=== PATIENT | female | born 1935 | race Caucasian/White ===

== ENCOUNTER 2017-06-22 22:52 | Emergency (ER) | payer MEDICARE, OTHER ==
[2017-06-22 23:18] VITALS: BP 109/61
--- NOTE | 2017-06-22 23:33 | EDM.PDOC ---
ED HPI GENERAL MEDICAL PROBLEM - General Chief Complaint: General Stated Complaint: nose bleed Time Seen by Provider: 06/22/17 23:26 Source of Information: Reports: Patient History Limitations: Reports: No Limitations - History of Present Illness INITIAL COMMENTS - FREE TEXT/NARRATIVE: Patient is an 82-year-old female who presents to the emergency Department this evening with her and son for complaint of nosebleed. Patient states that right nare started bleeding about 9 o'clock this evening and would not stop. Patient put pressure, however, she did lean head back and felt like she was swallowing blood. Advised that she should lean forward and pinch nose in the future. Patient wears O2 via nasal cannula at home on a continues basis. Does not have humidification attached. Patient admits to history of nosebleeds , but they spontaneously resolve. Patient denies any trauma to the face, chest pain, shortness of breath, nausea, vomiting, or fever. Onset: Today Onset Date: 06/22/17 Location: Reports: Face Severity: Mild Improves with: Reports: Other (pressure) Worsens with: Reports: None Context: Denies: Trauma Associated Symptoms: Reports: No Other Symptoms - Related Data Allergies Allergy/AdvReac Type Severity Reaction Status Date / Time Sulfa (Sulfonamide Allergy Nausea and Verified 06/22/17 23:13 Antibiotics) Vomiting Home Meds: Home Meds Aspirin [Adult Low Dose Aspirin EC] 81 mg PO BEDTIME 07/05/15 [History] fentaNYL [Fentanyl] 25 mcg TOP Q72H 07/05/15 [History] Citalopram [Celexa] 20 mg PO BEDTIME 07/09/15 [History] Gabapentin [Neurontin] 600 mg PO TID 03/23/16 [History] Multivits-Min/Iron/FA/Lutein [Centrum Silver Women Tablet] 1 each PO DAILY 03/23 [History] Simvastatin [Simvastatin] 20 mg PO BEDTIME 03/23/16 [History] amLODIPine [Norvasc] 5 mg PO BEDTIME 03/23/16 [History] Metoprolol Tartrate [Metoprolol Tartrate] 50 mg PO DAILY 06/22/17 [History] Mirtazapine [Mirtazapine] 15 mg PO BEDTIME 06/22/17 [History] Omeprazole [Omeprazole] 20 mg PO DAILY 06/22/17 [History] Past Medical History HEENT History: Reports: Impaired Vision Cardiovascular History: Reports: Hypertension Respiratory History: Reports: Other (See Below) Other Respiratory History: has had pneumonia once before. left lung partially collapsed Gastrointestinal History: Reports: Cholelithiasis, Chronic Constipation, Other ( See Below) Other Gastrointestinal History: "had holes in the intestine and had surgery to patch the hole back in the 1959's HOSPITAL ORDERLY History: Reports: Musculoskeletal History: Reports: Other (See Below) Other Musculoskeletal History: sciatica Psychiatric History: Reports: Depression Dermatologic History: Reports: Other (See Below) Other Dermatologic History: rocessa - Infectious Disease History Infectious Disease History: Reports: Chicken Pox, Measles, Mumps - Past Surgical History HEENT Surgical History: Reports: Cataract Surgery, Tonsillectomy Musculoskeletal Surgical History: Reports: Other (See Below) Social & Family History - Family History Family Medical History: Noncontributory Endocrine/Metabolic: Reports: Diabetes, type II Oncologic: Reports: Esophageal Other Oncologic Family History: father of cancer - Tobacco Use Smoking Status *Q: Former Smoker Years of Tobacco use: 10 Packs/Tins Daily: 0.2 Used Tobacco, but Quit: Yes Month Tobacco Last Used: march Second Hand Smoke Exposure: No - Alcohol Use Days Per Week of Alcohol Use: 1 Number of Drinks Per Day: 2 Total Drinks Per Week: 2 - Recreational Drug Use Recreational Drug Use: No Drug Use in Last 12 Months: No ED ROS GENERAL - Review of Systems Review Of Systems: ROS reveals no pertinent complaints other than HPI. Constitutional: Reports: No Symptoms HEENT: Reports: Nosebleed Respiratory: Reports: No Symptoms Cardiovascular: Reports: No Symptoms Endocrine: Reports: No Symptoms GI/Abdominal: Reports: No Symptoms : Reports: No Symptoms Musculoskeletal: Reports: No Symptoms Skin: Reports: No Symptoms Neurological: Reports: No Symptoms Psychiatric: Reports: No Symptoms Hematologic/Lymphatic: Reports: No Symptoms Immunologic: Reports: No Symptoms ED EXAM, GENERAL - Physical Exam Exam: See Below Exam Limited By: No Limitations General Appearance: Alert, WD/WN, No Apparent Distress Eye Exam: Bilateral Eye: Normal Inspection Nose: Other (Faint active bleed from right nare). No: Nasal Deformity, Nasal Swelling, Clear Rhinorrhea Throat/Mouth: Normal Inspection, Normal Lips, Normal Teeth, Normal Gums, Normal Oropharynx, Normal Voice, No Airway Compromise Head: Atraumatic, Normocephalic Neck: Normal Inspection, Supple, Non-Tender. No: Lymphadenopathy (L), Lymphadenopathy (R) Respiratory/Chest: No Respiratory Distress, Lungs Clear, Normal Breath Sounds Cardiovascular: Regular Rate, Rhythm, No Murmur Extremities: Normal Inspection, No Pedal Edema Neurological: Alert, Oriented, Normal Cognition Psychiatric: Normal Affect, Normal Mood Skin Exam: Warm, Dry, Intact, Normal Color, No Rash Lymphatic: No Adenopathy ED GENERAL MEDICAL PROCEDURES - Additional/Other Procedure(s) Other (Free Text) Procedure(s): Right nare cauterized using silver nitrate stick. None petroleum jelly applied. Good hemostasis. Patient tolerated procedure well Course - Vital Signs Last Recorded V/S: Last Vital Signs Temp 96.0 F 06/22/17 23:13 Pulse 66 06/22/17 23:13 Resp 20 06/22/17 23:13 BP 109/61 06/22/17 23:13 Pulse Ox 91 L 06/22/17 23:13 - Re-Assessments/Exams Free Text/Narrative Re-Assessment/Exam: 06/22/17 23:52 Patient afebrile, nontoxic appearing, vital signs stable. Right nare bleeding resolved. Advised patient to contact [facility] tomorrow for consideration of humidification in oxygen source Departure - Departure Time of Disposition: 23:53 Disposition: Home, Self-Care 01 Condition: Good Clinical Impression: Anterior epistaxis - Discharge Information Instructions: Nosebleed, Adult, [id number] Referrals: Ronan Cazares, [employer] [Nurse Practitioner] - Additional Instructions: Follow-up at [facility] tomorrow for recheck and consideration of humidification - Assessment/Plan Assessment:: Nosebleed Plan: Follow-up at [facility]
== END 2017-06-23 00:05 | disposition home or self-care (01) ==
LOC: KA.ED 22:52
DX: R04.0 Epistaxis (principal); I10 Essential (primary) hypertension; Z88.2 Allergy status to sulfonamides; Z79.899 Other long term (current) drug therapy; Z87.891 Personal history of nicotine dependence
CPT/HCPCS: 30901; 99282; 99283

== ENCOUNTER 2017-06-28 02:50 | Emergency (ER) | payer MEDICARE, OTHER ==
[2017-06-28] MEDS ORDERED: Sodium Chloride 0.9% 5 ML Syringe FLUSH PRN (03:17)
[2017-06-28] MEDS ORDERED: Acetaminophen 325 MG Tab PO ONE (03:30)
--- NOTE | 2017-06-28 03:46 | EDM.PDOC ---
ED HPI GENERAL MEDICAL PROBLEM - General Chief Complaint: General Stated Complaint: fall Time Seen by Provider: 06/28/17 03:10 Source of Information: Reports: Patient, Family () History Limitations: Reports: Altered Mental Status - History of Present Illness INITIAL COMMENTS - FREE TEXT/NARRATIVE: Patient is 82-year-old female who presents to the emergency department this morning via EMS for complaint of altered mental status and fall. Her states that at 10 p.m. last evening she had an unwitnessed fall in the bedroom. He did not initially realize that she had injured her left ankle. He states that over the last few days she has had more difficulty ambulating, and seems more confused. This morning he decided to contact EMS for transport. Patient was seen in this ER on 06/22/2017 with a complaint of epistaxis. Symptoms did resolve at that time and states that symptoms did not return. Patient was seen at [facility] by Ronan Cazares last week and blood pressure medicine was changed to include half dose at night. Patient had similar confusion status in July 2015, and work up at that time was negative. Patient denies chest pain, shortness of breath, headache, nausea, vomiting, or any pain other than left ankle. Onset: Sudden Onset Date: 06/27/17 Onset Time: 22:00 Duration: Hour(s): Location: Reports: Lower Extremity, Left Quality: Reports: Ache Severity: Mild Improves with: Reports: None Worsens with: Reports: None Context: Reports: Trauma Associated Symptoms: Reports: Confusion - Related Data Allergies Allergy/AdvReac Type Severity Reaction Status Date / Time Sulfa (Sulfonamide Allergy Nausea and Verified 06/28/17 03:01 Antibiotics) Vomiting Home Meds: Home Meds Aspirin [Adult Low Dose Aspirin EC] 81 mg PO BEDTIME 07/05/15 [History] fentaNYL [Fentanyl] 25 mcg TOP Q72H 07/05/15 [History] Citalopram [Celexa] 20 mg PO BEDTIME 07/09/15 [History] Gabapentin [Neurontin] 600 mg PO TID 03/23/16 [History] Multivits-Min/Iron/FA/Lutein [Centrum Silver Women Tablet] 1 each PO DAILY 03/23 [History] Simvastatin [Simvastatin] 20 mg PO BEDTIME 03/23/16 [History] amLODIPine [Norvasc] 5 mg PO BEDTIME 03/23/16 [History] Metoprolol Tartrate [Metoprolol Tartrate] 50 mg PO DAILY 06/22/17 [History] Mirtazapine [Mirtazapine] 15 mg PO BEDTIME 06/22/17 [History] Omeprazole [Omeprazole] 20 mg PO DAILY 06/22/17 [History] Past Medical History HEENT History: Reports: Impaired Vision Cardiovascular History: Reports: Hypertension Respiratory History: Reports: Other (See Below) Other Respiratory History: has had pneumonia once before. 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: Reports: Musculoskeletal History: Reports: Other (See Below) Other Musculoskeletal History: sciatica Psychiatric History: Reports: Depression Dermatologic History: Reports: Other (See Below) Other Dermatologic History: rocessa - Infectious Disease History Infectious Disease History: Reports: Chicken Pox, Measles, Mumps - Past Surgical History HEENT Surgical History: Reports: Cataract Surgery, Tonsillectomy Musculoskeletal Surgical History: Reports: Other (See Below) Social & Family History - Family History Family Medical History: Noncontributory Endocrine/Metabolic: Reports: Diabetes, type II Oncologic: Reports: Esophageal Other Oncologic Family History: father of cancer - Tobacco Use Smoking Status *Q: Former Smoker Years of Tobacco use: 10 Packs/Tins Daily: 0.2 Used Tobacco, but Quit: Yes Month Tobacco Last Used: march Second Hand Smoke Exposure: No - Caffeine Use Caffeine Use: Reports: Coffee - Alcohol Use Days Per Week of Alcohol Use: 1 Number of Drinks Per Day: 2 Total Drinks Per Week: 2 - Recreational Drug Use Recreational Drug Use: No Drug Use in Last 12 Months: No ED ROS GENERAL - Review of Systems Review Of Systems: ROS reveals no pertinent complaints other than HPI. Constitutional: Reports: No Symptoms HEENT: Reports: No Symptoms Respiratory: Reports: No Symptoms Cardiovascular: Reports: No Symptoms Endocrine: Reports: No Symptoms GI/Abdominal: Reports: No Symptoms : Reports: No Symptoms Musculoskeletal: Reports: Leg Pain Skin: Reports: No Symptoms Neurological: Reports: No Symptoms Psychiatric: Reports: No Symptoms Hematologic/Lymphatic: Reports: No Symptoms Immunologic: Reports: No Symptoms ED EXAM, GENERAL - Physical Exam Exam: See Below Exam Limited By: Altered Mental Status (Confused) General Appearance: Alert, WD/WN, No Apparent Distress Eye Exam: Bilateral Eye: Normal Inspection Nose: Normal Inspection, Normal Mucosa, No Blood Throat/Mouth: Normal Inspection, Normal Oropharynx, No Airway Compromise Head: Atraumatic, Normocephalic Neck: Normal Inspection, Supple, Non-Tender, Full Range of Motion Respiratory/Chest: No Respiratory Distress, No Accessory Muscle Use, Chest Non- Tender, Rales (Bibasilar) Cardiovascular: Regular Rate, Rhythm, No Murmur Peripheral Pulses: 2+: Posterior Tibial (L), Posterior Tibial (R), Dorsalis Pedis (L), Dorsalis Pedis (R) GI/Abdominal: Normal Bowel Sounds, Soft, Non-Tender Back Exam: Normal Inspection. No: CVA Tenderness (L), CVA Tenderness (R) Extremities: Other (Left ankle lateral malleolus edema and ecchymosis.) Neurological: Alert, Confused Psychiatric: Normal Affect, Normal Mood Skin Exam: Warm, Dry, Intact, Normal Color, No Rash ED GENERAL MEDICAL PROCEDURES - Splinting Left Lower Extremity Pre-procedure NV status: Normal Post-procedure NV status: Normal Splint Material: Fiberglass Splint Design: Sugar Tong, Stirrup Applied & Form Fitted By: Provider Provider Post-Splint Application NV Check: NV Status Normal, Good Position Complications: No EKG INTERPRETATION EKG Date: 06/28/17 Time: 04:15 Rhythm: NSR Rate (Beats/Min): 75 [place]: Normal P-Wave: Present QRS: Normal ST-T: Normal QT: Normal Comparison: NA - No Prior EKG Course - Orders/Labs/Meds Orders: Active Orders 24 hr Category Date Time Status EKG Documentation Completion [RC] ASDIRECTED Care 06/28/17 03:54 Ordered Peripheral IV Care [RC] . DIRECTED Care 06/28/17 03:18 Ordered Ankle 2V Lt [CR] Stat Exams 06/28/17 03:17 Ordered Chest 1V Frontal [CR] Stat Exams 06/28/17 03:53 Ordered Sodium Chloride 0.9% @ 999 MLS/HR (1000ml) Med 06/28/17 04:30 Ordered Sodium Chloride 0.9% [Normal Saline] 1,000 ml IV .BOLUS Sodium Chloride 0.9% [Syrex Flush] Med 06/28/17 03:17 Ordered 5 ml FLUSH Q8HR PRN Peripheral IV Insertion Adult [OM.PC] Routine Oth 06/28/17 03:17 Ordered EKG 12 Lead [EK] Routine Ther 06/28/17 03:53 Ordered Medication Orders Sodium Chloride (Normal Saline) 1,000 mls @ 999 mls/hr IV .BOLUS ONE Stop: 06/28/17 05:30 Sodium Chloride (Syrex Flush) 5 ml FLUSH Q8HR PRN PRN Reason: Keep Vein Open Labs: Laboratory Tests 06/28/17 06/28/17 06/28/17 Range/Units 03:20 03:20 03:55 WBC 7.2 (5.0-10.0) 10^3/uL RBC 3.51 L (3.80-5.50) 10^6/uL Hgb 10.5 L D (12.0-16.0) g/dL Hct 32.6 L (37.0-47.0) % MCV 92.9 H (82.0-92.0) fL MCH 30.0 (27.0-31.0) pg MCHC 32.3 (32.0-36.0) g/dL RDW 13.4 (11.5-14.5) % Plt Count 142 L (150-300) 10^3/uL MPV 7.4 (7.4-10.4) fL Neut % (Auto) 78.1 H (50.0-70.0) % Lymph % (Auto) 12.5 L (20.0-40.0) % [place] % (Auto) 8.7 H (2.0-8.0) % Eos % (Auto) 0.6 L (1.0-3.0) % Baso % (Auto) 0.1 (0.0-1.0) % Neut # (Auto) 5.7 (2.5-7.0) 10^3/uL Lymph # (Auto) 0.9 L (1.0-4.0) 10^3/uL [place] # (Auto) 0.6 (0.1-0.8) 10^3/uL Eos # (Auto) 0.0 L (0.1-0.3) 10^3/uL Baso # (Auto) 0.0 (0.0-0.1) 10^3/uL Sodium 145 (136-145) mmol/L Potassium 4.8 (3.3-5.3) mmol/L Chloride 102 (98-115) mmol/L Carbon Dioxide 45.0 H D (21.0-32.0) mmol/L BUN 14 (6-25) mg/dL Creatinine 0.73 (0.51-1.17) mg/dL Est Cr Clr Drug Dosing TNP Estimated GFR (MDRD) > 60 mL/min Glucose 140 H (70-110) mg/dL Calcium 8.5 L (8.7-10.3) mg/dL Total Bilirubin 0.3 (0.2-1.0) mg/dL AST 49 H (15-37) U/L ALT 40 (12-78) U/L Alkaline Phosphatase 73 (46-116) IU/L Total Protein 7.5 (6.4-8.2) g/dL Albumin 3.10 (3.00-4.80) g/dL Specimen Type [place] Urine Color Yellow (YELLOW) Urine Appearance Clear (CLEAR) Urine pH 7.0 (5.0-9.0) Ur Specific [place] 1.020 (1.005-1.030) Urine Protein 30 H (NEGATIVE) mg/dL Urine Glucose (UA) Negative (NEGATIVE) mg/dL Urine Ketones Negative (NEGATIVE) mg/dL Urine Occult Blood Trace-intact H (NEGATIVE) Urine Nitrite Negative (NEGATIVE) Urine Bilirubin Negative (NEGATIVE) Urine Urobilinogen 1.0 (0.2-1.0) E.U./dL Ur Leukocyte Esterase Negative (NEGATIVE) Urine RBC 0-5 /HPF Urine WBC 0-5 /HPF Ur Epithelial Cells Not seen /LPF Amorphous Sediment Many H (0/HPF) /HPF Urine Bacteria Not seen (NONE TO FEW) /HPF Urine Mucus Rare H (NEGATIVE) /LPF Meds: Medications Generic Name Dose Route Start Last Admin Trade Name Freq PRN Reason Stop Dose Admin Sodium Chloride 1,000 mls @ 999 mls/hr 06/28/17 04:30 Normal Saline IV 06/28/17 05:30 .BOLUS ONE Sodium Chloride 5 ml 06/28/17 03:17 Syrex Flush FLUSH Q8HR PRN Keep Vein Open Discontinued Medications Generic Name Dose Route Start Last Admin Trade Name Freq PRN Reason Stop Dose Admin Acetaminophen 650 mg 06/28/17 03:30 Tylenol PO 06/28/17 03:31 NOW ONE Sodium Chloride Confirm 06/28/17 04:31 Normal Saline Administered 06/28/17 04:32 Dose 1,000 mls @ as directed .ROUTE .STK-MED ONE Morphine Sulfate 2 mg 06/28/17 04:31 Morphine IVPUSH 06/28/17 04:32 ONETIME ONE Morphine Sulfate Confirm 06/28/17 04:32 Morphine Administered 06/28/17 04:33 Dose 2 mg .ROUTE .STK-MED ONE - Radiology Interpretation Free Text/Narrative:: Left ankle x-ray shows trimalleolar fracture, subluxation and distraction noted. Chest x-ray suspicious right lower lobe pneumonia - Re-Assessments/Exams Free Text/Narrative Re-Assessment/Exam: 06/28/17 05:19 Patient now afebrile, nontoxic appearing, vital signs stable, pain controlled. Posterior OCL and stirrup splint applied to left lower extremity. at bedside. Discussed case with Dr. Cordero, orthopedic surgeon from [facility]. Recommendation was for transfer via EMS to [place] for unstable fracture. Hospitalist there will address febrile concern that was initiated here. Departure - Departure Time of Disposition: 05:21 Disposition: DC/Tfer to Acute Hospital 02 Condition: Fair Clinical Impression: Confusion Trimalleolar fracture of left ankle Qualifiers: Encounter type: initial encounter Fracture type: closed Qualified Code(s): S82.852A - Displaced trimalleolar fracture of left lower leg, initial encounter for closed fracture Fever Qualifiers: Fever type: unspecified Qualified Code(s): R50.9 - Fever, unspecified Pneumonia Qualifiers: Pneumonia type: due to unspecified organism Laterality: right Lung location: upper lobe of lung Qualified Code(s): J18.9 - Pneumonia, unspecified organism - Discharge Information Forms: ED Department Discharge - My Orders Last 24 Hours: My Active Orders 06/28/17 03:17 Ankle 2V Lt [CR] Stat Sodium Chloride 0.9% [Syrex Flush] 5 ml FLUSH Q8HR PRN Peripheral IV Insertion Adult [OM.PC] Routine 06/28/17 03:18 Peripheral IV Care [RC] . DIRECTED 06/28/17 03:53 Chest 1V Frontal [CR] Stat EKG 12 Lead [EK] Routine 06/28/17 03:54 EKG Documentation Completion [RC] ASDIRECTED 06/28/17 04:30 Sodium Chloride 0.9% @ 999 MLS/HR (1000ml) Sodium Chloride 0.9% [Normal Saline] 1,000 ml IV .BOLUS - Assessment/Plan Last 24 Hours: My Active Orders 06/28/17 03:17 Ankle 2V Lt [CR] Stat Sodium Chloride 0.9% [Syrex Flush] 5 ml FLUSH Q8HR PRN Peripheral IV Insertion Adult [OM.PC] Routine 06/28/17 03:18 Peripheral IV Care [RC] . DIRECTED 06/28/17 03:53 Chest 1V Frontal [CR] Stat EKG 12 Lead [EK] Routine 06/28/17 03:54 EKG Documentation Completion [RC] ASDIRECTED 06/28/17 04:30 Sodium Chloride 0.9% @ 999 MLS/HR (1000ml) Sodium Chloride 0.9% [Normal Saline] 1,000 ml IV .BOLUS Assessment:: Left ankle, unstable fracture/pneumonia Plan: Transport to [facility]
[2017-06-28 04:15] LABS: CHLORIDE,CL 102 mmol/L (98-115); SODIUM,NA 145 mmol/L (136-145)
[2017-06-28] MEDS ORDERED: Morphine 2 MG/ML Syringe IVPUSH ONE (04:31)
[2017-06-28] MEDS ORDERED: Morphine 2 MG/ML Syringe ONE (04:32)
[2017-06-28] MEDS: Sodium Chloride 0.9% 1,000 ML IV ONE ×2 (04:40→05:45)
[2017-06-28] MEDS ORDERED: Azithromycin 500 MG in Sodium Chloride 0.9% 250 ML IV ONE (05:29)
[2017-06-28] MEDS ORDERED: cefTRIAXone 1 GM Vial IVPUSH ONE (05:29)
[2017-06-28] MEDS ORDERED: Azithromycin 250 MG Tab ONE (05:40)
[2017-06-28] MEDS: Sodium Chloride 0.9% 1,000 ML ONE ×2 (05:45→15:58)
[2017-06-28] MEDS ORDERED: Azithromycin 250 MG Tab PO SCH (06:00)
[2017-06-28 08:12] VITALS: BP 120/46
[2017-06-29] MEDS ORDERED: Azithromycin 250 MG Tab PO SCH (11:45)
== END 2017-06-28 06:35 ==
LOC: KA.ED 02:50
DX: S82.852A Displaced trimalleolar fracture of left lower leg, initial encounter for closed fracture (principal); J18.9 Pneumonia, unspecified organism; R41.82 Altered mental status, unspecified; I10 Essential (primary) hypertension; Z88.2 Allergy status to sulfonamides; Z79.899 Other long term (current) drug therapy; Z87.891 Personal history of nicotine dependence; W19.XXXA Unspecified fall, initial encounter; Y92.003 Bedroom of unspecified non-institutional (private) residence as the place of occurrence of the external cause
CPT/HCPCS: 29515; 71045; 73600-LT; 80053; 81001; 85025; 93005; 96361; 96374; 96375; 99284; 99285; A9270-GY; J0696; J2270; J7030

== ENCOUNTER 2017-09-10 14:48 | Inpatient (IN) | payer MEDICARE, OTHER ==
[2017-09-10 17:04] LABS: CHLORIDE,CL 103 mmol/L (98-115); SODIUM,NA 147 mmol/L (136-145)
[2017-09-10 17:27] LABS: O2 DELIVERY DEVICE NASAL CANNULA
[2017-09-10] MEDS ORDERED: Furosemide 40 MG/4 ML VIAL IVPUSH SCH ×2 (18:00→21:00)
[2017-09-10 18:38] LABS: BASE EXCESS ARTERIAL 18 mmol/L (-2-3); BICARBONATE,ARTERIAL 45.1 mmol/L (22-26); O2 FLOW RATE 2 L/min; O2 SATURATION ARTERIAL 85 % (95-98)
[2017-09-10 18:42] LABS: PCO2 ARTERIAL 100 mmHG (35-45); PO2 ARTERIAL 62 mmHG (80-105)
[2017-09-10 20:04] LABS: O2 DELIVERY DEVICE NASAL CANNULA; PCO2 ARTERIAL 94 mmHG (35-45)
[2017-09-10 20:05] LABS: BASE EXCESS ARTERIAL 23 mmol/L (-2-3); BICARBONATE,ARTERIAL 48.9 mmol/L (22-26); O2 FLOW RATE 2 L/min; O2 SATURATION ARTERIAL 88 % (95-98); PO2 ARTERIAL 64 mmHG (80-105)
[2017-09-10] MEDS: Pramipexole 0.5 MG Tab PO SCH (20:13)
[2017-09-10] MEDS: Gabapentin 300 MG Cap PO SCH (20:49)
[2017-09-10] MEDS: Mirtazapine 15 MG Tab PO SCH (20:50)
[2017-09-10] MEDS: amLODIPine 5 MG Tab PO SCH (20:51)
[2017-09-10] MEDS: Metoprolol Tartrate 50 MG Tab PO SCH (20:51)
[2017-09-10] MEDS: Citalopram 20 MG Tab PO SCH (20:52)
[2017-09-10] MEDS: Aspirin 81 MG Tab.EC PO SCH (20:52)
[2017-09-10] MEDS: Simvastatin 20 MG Tab PO SCH (20:52)
[2017-09-10] MEDS ORDERED: rOPINIRole 0.25 MG Tab PO SCH (21:00)
[2017-09-10] MEDS ORDERED: traMADol 50 MG Tab PO SCH (21:00)
[2017-09-11] MEDS: Omeprazole 20 MG Cap.CR PO SCH (07:55)
[2017-09-11] MEDS: Gabapentin 300 MG Cap PO SCH ×3 (08:22→20:42)
[2017-09-11] MEDS: Multivitamins with Minerals/Iron/Folic Acid/Lycopene Tab PO SCH (08:23)
[2017-09-11] MEDS: Metoprolol Tartrate 50 MG Tab PO SCH ×2 (08:23→20:41)
[2017-09-11] MEDS ORDERED: Furosemide 40 MG/4 ML VIAL IVPUSH SCH (09:00)
[2017-09-11] MEDS ORDERED: Furosemide 40 MG Tab PO ONE (10:28)
[2017-09-11] MEDS: Losartan 25 MG Tab PO SCH ×2 (11:34→20:40)
--- NOTE | 2017-09-11 13:32 | PN ---
09/11/2017 PATIENT NAME: CATRACHO GUZMAN SUBJECTIVE: This is an 82-year-old female patient who was admitted to the hospital yesterday by Ronan Cazares, nurse practitioner with concerns about respiratory failure and distress. The patient has a long history of respiratory distress due to the patient having lung trauma after she fell a few years ago. 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 The patient does have a CPAP mask that she needs to wear at home. She does not wear it at home. The last three days, she states that she has just been more short of breath, can not get her wind, so she came into the clinic. At that time, she was admitted to the [facility]. Upon arrival to the hospital, the patient had arterial blood gases drawn which showed a pH at 7.33, pCO2 at 94, PO2 of 64, oxygen saturation of 88. This was performed on 2 L nasal cannula. The patient does use oxygen at home. The patient had denied any cough while at home. She denied any fever or chills. Now today, the patient refused to wear her CPAP mask during the last night. She says she does not feel really that much better than she did yesterday. The patient's brain-natriuretic peptide was found to be elevated at 562. She was given one dose of Lasix 40 mg IV. The patient did pull her IV out last night. I discussed at length with the patient today on rounds of the need that she has to wear the BiPAP/CPAP mass to help with her breathing. Otherwise, there is not really anything else we could do. We are trying to diurese her and get some extra fluid off. The patient after long discussion was agreeable to start trying to wear her CPAP mask to help with her breathing. OBJECTIVE: VITAL SIGNS: Today, temperature is 98.3, pulse is 70, blood pressure 151/71, respiratory rate is 16, oxygen saturation on 2 L nasal cannula is 96%. GENERAL: This is an elderly white female in no acute distress. LUNGS: Sounds are extremely diminished throughout both lung [place]. She is pale in color. HEART: Tones are distant. NEURO: She is very orientated. You can keep a very good conversation with her. She does get up to walk to the bathroom with standby assist. ABDOMEN: Soft, nontender, nondistended. Bowel sounds present x4. EXTREMITIES: No pedal edema noted on exam. LABORATORY DATA: The patient's lab work that was obtained yesterday, CBC showed a white count within normal range at 5.7, hemoglobin slightly low at 10.7, platelet count of 146. ABGs, I already had discussed those, those are performed on 2 L nasal cannula. The patient's chemistry panel that was obtained yesterday after admission, sodium was just slightly high at 147. Her bicarb was elevated at 40.6. AST was slightly elevated at 42. Brain-natriuretic peptide was elevated at 562. Otherwise, all other lab work was unremarkable. No repeat lab work was obtained today. IMPRESSION AND PLAN: 1. Respiratory failure with hypercapnia. Plan: I did encourage patient she needs to wear her CPAP mask even as she to start wearing only 20 to 30 minutes at a time. ABG showed her pCO2 to be elevated at 94. We are going to hold the patient's tramadol at bedtime. Continue with oxygen per nasal cannula when she is not wearing the CPAP mask. Chest x-ray showed some impression per Radiology reads findings in the chest, most consistent with sequela of fluid retention, most likely congestive heart failure exacerbation. 2. Congestive heart failure. Plan: The patient's brain-natriuretic peptide was elevated at 562, IV was started per Anesthesia. She was given one dose of Lasix 40 mg IV yesterday. She did pull out her IV last night. We are going to continue with Lasix therapy, but orally she will get one dose of 40 mg Lasix now. We will continue at 40 mg twice daily of Lasix. I am going to start the patient on an ARB, losartan 25 mg twice daily. Also, we will continue to monitor patient's fluid status, I's and O's. 3. Hypertension. Plan: We will continue with amlodipine 5 mg daily along with metoprolol tartrate 50 mg b.i.d. I did start the patient on losartan 25 mg b.i.d. The patient's blood pressure is elevated today at 151/71. 4. History of depression. Plan: Continue with Celexa 20 mg daily. 5. History of peripheral neuropathy/restless legs syndrome. Plan: We will continue with gabapentin 600 mg three times a day. The patient's Requip was not really seeming to work. I discontinued patient's Requip, started her on Mirapex 0.125 at bedtime. 6. Sleep disorder. Plan: Continue with Remeron 30 mg at bedtime. 7. History of gastroesophageal reflux disease. Plan: Continue with omeprazole 20 mg daily in the morning. 8. History of hyperlipidemia. Plan: Continue with Zocor 20 mg daily. OVERALL PLAN: We will try to diurese the patient with oral Lasix. We will keep an accurate I's and O's. The patient's brain-natriuretic peptide was elevated at 562. We will also try to keep the patient to wear her BiPAP/CPAP mask for better ventilation. Also, I did start her on some losartan 25 mg b.i.d. for blood pressure control along with fluid status improvement. We will monitor the patient closely. /[id number]/MODL MTDD
[2017-09-11] MEDS: Pramipexole 0.5 MG Tab PO SCH (19:13)
[2017-09-11] MEDS: Citalopram 20 MG Tab PO SCH (20:39)
[2017-09-11] MEDS: Aspirin 81 MG Tab.EC PO SCH (20:40)
[2017-09-11] MEDS: Furosemide 40 MG Tab PO SCH (20:41)
[2017-09-11] MEDS: amLODIPine 5 MG Tab PO SCH (20:42)
[2017-09-11] MEDS: Simvastatin 20 MG Tab PO SCH (20:43)
[2017-09-11] MEDS: Mirtazapine 15 MG Tab PO SCH (20:43)
[2017-09-11] MEDS ORDERED: traMADol 50 MG Tab PO ONE (23:13)
[2017-09-12] MEDS: Omeprazole 20 MG Cap.CR PO SCH (07:32)
[2017-09-12] MEDS: Gabapentin 300 MG Cap PO SCH (09:12)
[2017-09-12] MEDS: Furosemide 40 MG Tab PO SCH (09:12)
[2017-09-12] MEDS: Metoprolol Tartrate 50 MG Tab PO SCH (09:12)
[2017-09-12] MEDS: Multivitamins with Minerals/Iron/Folic Acid/Lycopene Tab PO SCH (09:12)
[2017-09-12] MEDS: Losartan 25 MG Tab PO SCH (09:13)
[2017-09-12 09:14] VITALS: BP 110/56
--- NOTE | 2017-09-13 08:33 | DISCH ---
ADMITTING DIAGNOSIS: Acute respiratory failure. FINAL DIAGNOSIS: Severe hypercapnia with respiratory distress due to paralytic diaphragm with slight improvement. BRIEF HISTORY AND ESSENTIAL PHYSICAL FINDINGS: This is an 82-year-old female patient who has a long history of respiratory difficulties. 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 She has a CPAP mask that she wears at home, but she never wears it so she gets very hypercapnic. She came to the clinic on Wednesday, complaining of shortness of breath, difficulty breathing. She had not been wearing her CPAP mask. She was admitted to the hospital at that time. The patient was found to have a brain natriuretic peptide that was elevated at 562. She was given one dose of Lasix IV 40 mg. She did diurese well. Her breathing seems to be improved. She did wear her CPAP very sparingly while here in the hospital. ABGs on admission did reveal a pCO2 of 94. The patient states today she is feeling much better and would like to go home. SIGNIFICANT LABS XRAYS AND CONSULTATION FINDINGS: The patient's chest x-ray report that was obtained upon admission had stated that that the findings of the chest x-ray are most consistent with sequela of fluid retention, most likely congestive heart failure. The patient's lab work on admission; CBC showed a white count within normal range at 5.7 and hemoglobin slightly low at 10.7. ABG showed a pH of 7.33, pCO2 at 94, PO2 at 64, oxygen saturations at 88%, and her bicarb on ABG was 48.9. This was performed on 2 L nasal cannula. The patient's chemistry panel on admission showed a sodium slightly elevated at 147. Carbon dioxide on her chemistry panel was 40.6. AST was slightly elevated at 42. Brain natriuretic peptide was elevated at 562. Otherwise, all lab work was unremarkable. COURSE IN HOSPITAL WITH COMPLICATIONS IF ANY: The patient did get one dose of Lasix IV 40 mg. She had good urine output after having Lasix. She was put on oral Lasix 40 mg p.o. twice a day. We encouraged her very strongly to wear her CPAP mask. She wore it very sparingly while here in the hospital. She did feel better on day of discharge. She stated that her breathing was better. The patient is very alert, orientated, able to walk to the bathroom by herself. She did fine while in the hospital. CONDITION TREATMENT AND FINAL DISPOSITION ON DISCHARGE AND PROGNOSIS: Condition is stable. Final disposition will be home. IMPRESSION AND PLAN: 1. Respiratory failure with hypercapnia. Plan: I did encourage the patient to wear her CPAP/Bipap mask while she is at home. I do not care if she only wears for 20 to 30 minutes at a time. I instructed her she needs to start wearing it.. weaning on. On Wednesday, I will call [facility] to see if they can get a mask that is more suitable for her to wear. She does walk fine on her own. She is totally alert and orientated even though her she is very hypercapnic. We did diurese her here somewhat in the hospital. She had been seen by Pulmonology multiple times in the past. 2. Congestive heart failure. Plan: The patient's brain natriuretic was elevated on admission at 562. She did get one dose of Lasix IV 40 mg. We also did put her on 40 mg p.o. of Lasix. I am going to send her home on Lasix 20 mg daily. I also did start her on losartan. I am going to send her home on 25 mg of losartan daily also. She did diurese well here in the hospital. 3. Hypertension. Plan: We will continue with amlodipine 5 mg daily along with metoprolol tartrate 50 mg twice daily. I am going to send her home on losartan 25 mg once daily. 4. History of depression. Plan: Continue with Celexa 20 mg daily. 5. History of peripheral neuropathy/restless legs syndrome. Plan: We will continue the patient on gabapentin 600 mg three times a day. She was on Requip that was not really working. I have stopped that and started her on Mirapex 0.125 at bedtime. We will see how she does on this instead of the Requip. 6. Sleep disorder. Plan: Continue with Remeron 30 mg at bedtime. 7. History of gastroesophageal reflux disease. Plan: Continue with omeprazole 20 mg in the morning. 8. History of hyperlipidemia. Plan: Continue the patient on Zocor 20 mg daily. OVERALL PLAN: I am going to send the patient home on Lasix 20 mg daily along with losartan 25 mg daily. The rest of her medications she will keep the same. I did switch her from Requip to Mirapex for her restless legs syndrome to see if this also helps. I encouraged her very strongly to wear her CPAP/Bipap mask while at home. I am going to have the patient follow up in the clinic on Wednesday or with Ronan Cazares, nurse practitioner, in followup to see how she is doing. /[id number]/MODL MTDD
== END 2017-09-12 11:05 | disposition home or self-care (01) | DRG 189 ==
LOC: KA.MS 14:48
PROVIDERS: ADMIT Nurse Practitioner Family; ATTEND Family Medicine
DX: J96.92 Respiratory failure, unspecified with hypercapnia (principal); I50.9 Heart failure, unspecified; I10 Essential (primary) hypertension; F32.9 Major depressive disorder, single episode, unspecified; G62.9 Polyneuropathy, unspecified; G25.81 Restless legs syndrome; K21.9 Gastro-esophageal reflux disease without esophagitis; E78.5 Hyperlipidemia, unspecified; J44.9 Chronic obstructive pulmonary disease, unspecified; G47.30 Sleep apnea, unspecified; J98.6 Disorders of diaphragm; Z79.899 Other long term (current) drug therapy; Z88.2 Allergy status to sulfonamides
CPT/HCPCS: 36415; 36600; 71046; 80053; 82803; 83880; 85025; A9270-GY; J1940

== ENCOUNTER 2017-09-17 07:09 | Inpatient (IN) | payer MEDICARE, OTHER ==
[2017-09-17] MEDS ORDERED: Sodium Chloride 0.9% 5 ML Syringe FLUSH PRN (07:36)
--- NOTE | 2017-09-17 07:55 | EDM.PDOC ---
ED HPI GENERAL MEDICAL PROBLEM - General Chief Complaint: Respiratory Problem Stated Complaint: LOW O2 SATS Time Seen by Provider: 09/17/17 07:30 Source of Information: Reports: Family History Limitations: Reports: Altered Mental Status - History of Present Illness INITIAL COMMENTS - FREE TEXT/NARRATIVE: 82 YO WF presents to ER by EMS due to hypoxia and confusion at home. at bedside states she uses home O2 and CPAP at home. states she had a similar episode of hypoxia and confusion 1 week ago and he suspects it corresponds to use of her CPAP. Pt with history of hypercapnia per . Pt awake and alert and responds to commands but has incoherent speech at this time. No fever/chills, no nausea/vomiting. Pt able to move all extremities without any obvious focal deficits. Onset: Sudden Onset Date: 09/17/17 Location: Reports: Generalized Improves with: Reports: None Worsens with: Reports: None Associated Symptoms: Reports: Confusion, Shortness of Breath. Denies: Cough, cough w sputum, Fever/Chills, Nausea/Vomiting - Related Data Allergies Allergy/AdvReac Type Severity Reaction Status Date / Time Sulfa (Sulfonamide Allergy Nausea and Verified 09/17/17 08:05 Antibiotics) Vomiting Home Meds: Home Meds Aspirin [Adult Low Dose Aspirin EC] 81 mg PO BEDTIME 07/05/15 [History] Citalopram [Celexa] 20 mg PO BEDTIME 07/09/15 [History] Gabapentin [Neurontin] 600 mg PO TID 03/23/16 [History] Multivits-Min/Iron/FA/Lutein [Centrum Silver Women Tablet] 1 each PO DAILY 03/23 [History] Simvastatin 20 mg PO BEDTIME 03/23/16 [History] Mirtazapine 30 mg PO BEDTIME 06/22/17 [History] Omeprazole 20 mg PO ACBREAKFAST 06/22/17 [History] traMADol HCl [Ultram] 100 mg PO BEDTIME 09/10/17 [History] Past Medical History HEENT History: Reports: Impaired Vision Cardiovascular History: Reports: Hypertension Respiratory History: Reports: Other (See Below) Other Respiratory History: has had pneumonia once before. 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: Musculoskeletal History: Reports: Other (See Below) Other Musculoskeletal History: sciatica Neurological History: Reports: Neuropathy, Peripheral Psychiatric History: Reports: Depression Hematologic History: Reports: None Immunologic History: Reports: None Oncologic (Cancer) History: Reports: None Dermatologic History: Reports: Other (See Below) Other Dermatologic History: rocessa - Infectious Disease History Infectious Disease History: Reports: Chicken Pox, Measles - Past Surgical History Head Surgeries/Procedures: Reports: None HEENT Surgical History: Reports: Cataract Surgery, Tonsillectomy GI Surgical History: Reports: Appendectomy, Cholecystectomy, Colonoscopy Female Surgical History: Reports: Hysterectomy Musculoskeletal Surgical History: Reports: Other (See Below) Social & Family History - Family History Family Medical History: Noncontributory Endocrine/Metabolic: Reports: Diabetes, type II Oncologic: Reports: Esophageal Other Oncologic Family History: father of cancer - Caffeine Use Caffeine Use: Reports: Coffee, Soda ED ROS GENERAL - Review of Systems Review Of Systems: ROS reveals no pertinent complaints other than HPI. Constitutional: Reports: No Symptoms HEENT: Reports: No Symptoms Respiratory: Reports: Shortness of Breath Cardiovascular: Reports: No Symptoms Endocrine: Reports: No Symptoms GI/Abdominal: Reports: No Symptoms : Reports: No Symptoms Musculoskeletal: Reports: No Symptoms Skin: Reports: No Symptoms Neurological: Reports: Confusion Psychiatric: Reports: No Symptoms Hematologic/Lymphatic: Reports: No Symptoms ED EXAM, GENERAL - Physical Exam Exam: See Below Exam Limited By: Altered Mental Status General Appearance: Alert, WD/WN, Mild Distress Eye Exam: Bilateral Eye: EOMI, PERRL Throat/Mouth: Normal Inspection, Normal Lips, Normal Teeth, Normal Gums, Normal Oropharynx, Normal Voice, No Airway Compromise Head: Atraumatic, Normocephalic Neck: Normal Inspection, Supple, Non-Tender, Full Range of Motion Respiratory/Chest: No Accessory Muscle Use, Chest Non-Tender, Decreased Breath Sounds, Crackles Cardiovascular: Normal Peripheral Pulses, Regular Rate, Rhythm, No Edema, No Gallop, No JVD, No Murmur, No Rub GI/Abdominal: Normal Bowel Sounds, Soft, Non-Tender, No Organomegaly, No Distention, No Abnormal Bruit, No Mass Back Exam: Normal Inspection, Full Range of Motion, NT Extremities: Normal Inspection, Normal Range of Motion, Non-Tender, Normal Capillary Refill, No Pedal Edema Neurological: Alert, CN II-XII Intact, Normal Reflexes, No Motor/Sensory Deficits Psychiatric: Normal Mood, Flat Affect Skin Exam: Warm, Dry, Intact, Normal Color, No Rash Lymphatic: No Adenopathy EKG INTERPRETATION EKG Date: 09/17/17 Time: 07:34 Rhythm: NSR Rate (Beats/Min): 75 [place]: Normal P-Wave: Present QRS: Normal ST-T: Normal QT: Normal Course - Vital Signs Last Recorded V/S: Last Vital Signs Temp 37.1 C 09/17/17 07:42 Pulse 73 09/17/17 07:42 Resp 20 09/17/17 07:42 BP 126/44 L 09/17/17 07:42 Pulse Ox 92 L 09/17/17 07:42 - Orders/Labs/Meds Orders: Active Orders 24 hr Category Date Time Status BIPAP Adult [RT BiPAP/CPAP] [RC] ASDIRECTED Care 09/17/17 08:19 Ordered Cardiac Monitoring [RC] . DIRECTED Care 09/17/17 07:36 Active EKG Documentation Completion [RC] ASDIRECTED Care 09/17/17 07:30 Active Bernal Catheter Insertion [Insert Urinary Catheter] [OM. Care 09/17/17 08:30 Ordered PC] Q24H Oxygen Therapy, ED [RC] ASDIRECTED Care 09/17/17 07:36 Active Peripheral IV Care [RC] . DIRECTED Care 09/17/17 07:36 Active Urinary Catheter Assessment [RC] ASDIRECTED Care 09/17/17 08:20 Ordered CXR [Chest 1V Frontal] [CR] Stat Exams 09/17/17 07:31 Taken Head wo Cont [CT] Stat Exams 09/17/17 07:42 Ordered Sodium Chloride 0.9% [Syrex Flush] Med 09/17/17 07:36 Active 5 ml FLUSH Q8HR PRN Peripheral IV Insertion Adult [OM.PC] Routine Oth 09/17/17 07:36 Ordered EKG 12 Lead [EK] Routine Ther 09/17/17 07:15 Ordered Medication Orders Sodium Chloride (Syrex Flush) 5 ml FLUSH Q8HR PRN PRN Reason: Keep Vein Open Labs: Laboratory Tests 05/18/18 05/18/18 05/18/18 Range/Units 07:25 07:25 07:25 WBC 8.4 (5.0-10.0) 10^3/uL RBC 3.89 (3.80-5.50) 10^6/uL Hgb 10.9 L (12.0-16.0) g/dL Hct 34.1 L (37.0-47.0) % MCV 87.6 (82.0-92.0) fL MCH 28.1 (27.0-31.0) pg MCHC 32.1 (32.0-36.0) g/dL RDW 15.6 H (11.5-14.5) % Plt Count 173 (150-300) 10^3/uL MPV 7.3 L (7.4-10.4) fL Neut % (Auto) 82.2 H (50.0-70.0) % Lymph % (Auto) 7.0 L (20.0-40.0) % [place] % (Auto) 9.6 H (2.0-8.0) % Eos % (Auto) 0.9 L (1.0-3.0) % Baso % (Auto) 0.3 (0.0-1.0) % Neut # (Auto) 6.9 (2.5-7.0) 10^3/uL Lymph # (Auto) 0.6 L (1.0-4.0) 10^3/uL [place] # (Auto) 0.8 (0.1-0.8) 10^3/uL Eos # (Auto) 0.1 (0.1-0.3) 10^3/uL Baso # (Auto) 0.0 (0.0-0.1) 10^3/uL PT 10.6 (8.9-11.4) SEC INR 1.0 (0.9-1.1) APTT 23.4 (20.8-31.2) SEC ABG pH (7.35-7.45) ABG pCO2 (35-45) mmHG ABG pO2 (80-105) mmHG ABG HCO3 (22-26) mmol/L ABG Total CO2 (23-27) mmol/L ABG O2 Saturation (95-98) % ABG Base Excess (-2-3) mmol/L O2 Delivery Device Sodium 145 (136-145) mmol/L Potassium 5.4 H D (3.3-5.3) mmol/L Chloride 103 (98-115) mmol/L Carbon Dioxide 37.3 H (21.0-32.0) mmol/L BUN 14 (6-25) mg/dL Creatinine 0.67 D (0.51-1.17) mg/dL Est Cr Clr Drug Dosing 55.40 mL/min Estimated GFR (MDRD) > 60 mL/min Glucose 156 H (70-110) mg/dL Calcium 9.2 (8.7-10.3) mg/dL Total Bilirubin 0.3 (0.2-1.0) mg/dL AST 56 H (15-37) U/L ALT 35 (12-78) U/L Alkaline Phosphatase 119 H (46-116) IU/L Creatine Kinase 45 (26-276) U/L CK-MB (CK-2) 1.50 (0.00-4.30) ng/mL Troponin I < 0.04 (0.00-0.070) ng/mL B-Natriuretic Peptide 738 H (0-100) pg/mL Total Protein 8.0 (6.4-8.2) g/dL Albumin 3.15 (3.00-4.80) g/dL 09/17/17 Range/Units 07:55 WBC (5.0-10.0) 10^3/uL RBC (3.80-5.50) 10^6/uL Hgb (12.0-16.0) g/dL Hct (37.0-47.0) % MCV (82.0-92.0) fL MCH (27.0-31.0) pg MCHC (32.0-36.0) g/dL RDW (11.5-14.5) % Plt Count (150-300) 10^3/uL MPV (7.4-10.4) fL Neut % (Auto) (50.0-70.0) % Lymph % (Auto) (20.0-40.0) % [place] % (Auto) (2.0-8.0) % Eos % (Auto) (1.0-3.0) % Baso % (Auto) (0.0-1.0) % Neut # (Auto) (2.5-7.0) 10^3/uL Lymph # (Auto) (1.0-4.0) 10^3/uL [place] # (Auto) (0.1-0.8) 10^3/uL Eos # (Auto) (0.1-0.3) 10^3/uL Baso # (Auto) (0.0-0.1) 10^3/uL PT (8.9-11.4) SEC INR (0.9-1.1) APTT (20.8-31.2) SEC ABG pH 7.20 L* (7.35-7.45) ABG pCO2 108 H* (35-45) mmHG ABG pO2 125 H (80-105) mmHG ABG HCO3 44.1 H (22-26) mmol/L ABG Total CO2 47 H (23-27) mmol/L ABG O2 Saturation 98 (95-98) % ABG Base Excess 16 H (-2-3) mmol/L O2 Delivery Device Room air Sodium (136-145) mmol/L Potassium (3.3-5.3) mmol/L Chloride (98-115) mmol/L Carbon Dioxide (21.0-32.0) mmol/L BUN (6-25) mg/dL Creatinine (0.51-1.17) mg/dL Est Cr Clr Drug Dosing mL/min Estimated GFR (MDRD) mL/min Glucose (70-110) mg/dL Calcium (8.7-10.3) mg/dL Total Bilirubin (0.2-1.0) mg/dL AST (15-37) U/L ALT (12-78) U/L Alkaline Phosphatase (46-116) IU/L Creatine Kinase (26-276) U/L CK-MB (CK-2) (0.00-4.30) ng/mL Troponin I (0.00-0.070) ng/mL B-Natriuretic Peptide (0-100) pg/mL Total Protein (6.4-8.2) g/dL Albumin (3.00-4.80) g/dL Meds: Medications Generic Name Dose Route Start Last Admin Trade Name Freq PRN Reason Stop Dose Admin Sodium Chloride 5 ml 09/17/17 07:36 Syrex Flush FLUSH Q8HR PRN Keep Vein Open Discontinued Medications Generic Name Dose Route Start Last Admin Trade Name Nelli PRN Reason Stop Dose Admin Furosemide 40 mg 09/17/17 08:19 Lasix IVPUSH 09/17/17 08:20 NOW ONE - Radiology Interpretation Free Text/Narrative:: CXR- Pulmonary congestion Departure - Departure Time of Disposition: 08:46 Disposition: Admitted As Inpatient 68 Condition: Critical Clinical Impression: Hypercapnemia Congestive heart failure Qualifiers: Heart failure chronicity: acute on chronic - Discharge Information Referrals: Ronan Cazares NP [Primary Care Provider] - Forms: ED Department Discharge - My Orders Last 24 Hours: My Active Orders 09/17/17 07:15 EKG 12 Lead [EK] Routine 09/17/17 07:30 EKG Documentation Completion [RC] ASDIRECTED 09/17/17 07:31 CXR [Chest 1V Frontal] [CR] Stat 09/17/17 07:36 Cardiac Monitoring [RC] . DIRECTED Oxygen Therapy, ED [RC] ASDIRECTED Peripheral IV Care [RC] . DIRECTED Sodium Chloride 0.9% [Syrex Flush] 5 ml FLUSH Q8HR PRN Peripheral IV Insertion Adult [OM.PC] Routine 09/17/17 07:42 Head wo Cont [CT] Stat 09/17/17 08:19 BIPAP Adult [RT BiPAP/CPAP] [RC] ASDIRECTED 09/17/17 08:20 Urinary Catheter Assessment [RC] ASDIRECTED 09/17/17 08:30 Bernal Catheter Insertion [Insert Urinary Catheter] [OM.PC] Q24H - Assessment/Plan Last 24 Hours: My Active Orders 09/17/17 07:15 EKG 12 Lead [EK] Routine 09/17/17 07:30 EKG Documentation Completion [RC] ASDIRECTED 09/17/17 07:31 CXR [Chest 1V Frontal] [CR] Stat 09/17/17 07:36 Cardiac Monitoring [RC] . DIRECTED Oxygen Therapy, ED [RC] ASDIRECTED Peripheral IV Care [RC] . DIRECTED Sodium Chloride 0.9% [Syrex Flush] 5 ml FLUSH Q8HR PRN Peripheral IV Insertion Adult [OM.PC] Routine 09/17/17 07:42 Head wo Cont [CT] Stat 09/17/17 08:19 BIPAP Adult [RT BiPAP/CPAP] [RC] ASDIRECTED 09/17/17 08:20 Urinary Catheter Assessment [RC] ASDIRECTED 09/17/17 08:30 Bernal Catheter Insertion [Insert Urinary Catheter] [OM.PC] Q24H Assessment:: 1. Hypercapnia 2. Respiratory distress 3. CHF exacerbation Plan: 1. Admit to Ronan Cazares 2. Bipap 3. supportive care 4. lasix 40mg IV
[2017-09-17 08:16] LABS: CHLORIDE,CL 103 mmol/L (98-115); SODIUM,NA 145 mmol/L (136-145)
[2017-09-17] MEDS ORDERED: Furosemide 40 MG/4 ML VIAL IVPUSH ONE (08:19)
[2017-09-17 08:29] LABS: O2 DELIVERY DEVICE ROOM AIR
[2017-09-17 08:31] LABS: BASE EXCESS ARTERIAL 16 mmol/L (-2-3); BICARBONATE,ARTERIAL 44.1 mmol/L (22-26); O2 SATURATION ARTERIAL 98 % (95-98); PCO2 ARTERIAL 108 mmHG (35-45); PO2 ARTERIAL 125 mmHG (80-105)
[2017-09-17 10:45] LABS: O2 DELIVERY DEVICE BIPAP; O2 FLOW RATE 6 L/min
[2017-09-17 10:47] LABS: BASE EXCESS ARTERIAL 17 mmol/L (-2-3); BICARBONATE,ARTERIAL 44.6 mmol/L (22-26); O2 SATURATION ARTERIAL 89 % (95-98); PCO2 ARTERIAL 103 mmHG (35-45); PO2 ARTERIAL 72 mmHG (80-105)
--- NOTE | 2017-09-17 10:53 | PCM.HP ---
H&P History of Present Illness - General Date of Service: 09/17/17 Admit Problem/Dx: Admission Diagnosis/Problem Admission Diagnosis/Problem Hypercapnia Source of Information: Family, Old Records, Provider History Limitations: Reports: Altered Mental Status, Respiratory Distress - History of Present Illness Initial Comments - Free Text/Narative: This 82-year-old female was admitted through the ED due epoxy and altered mental status. She was recently discharged from [facility] on September 12 due to acute on chronic respiratory failure improved with BiPAP while in the hospital. She has a history of chronic hypercapnia related to respiratory failure due to multiple comorbidities involving obstructive sleep apnea, diaphragmatic dysfunction, chronic obstructive pulmonary disease. She is to be on BiPAP at home however not 100% compliant in this. She also was given hydrocodone last night by her spouse d/t chronic pain and restless legs. At one point she was completely off of narcotic fentanyl patches however was recently placed on tramadol. Patient now is DNR - Related Data Allergies/Adverse Reactions: Allergies Allergy/AdvReac Type Severity Reaction Status Date / Time Sulfa (Sulfonamide Allergy Nausea and Verified 09/17/17 08:05 Antibiotics) Vomiting Home Medications: Home Meds Aspirin [Adult Low Dose Aspirin EC] 81 mg PO BEDTIME 07/05/15 [History] Citalopram [Celexa] 20 mg PO BEDTIME 07/09/15 [History] Gabapentin [Neurontin] 600 mg PO TID 03/23/16 [History] Multivits-Min/Iron/FA/Lutein [Centrum Silver Women Tablet] 1 each PO DAILY 03/23 [History] Simvastatin 20 mg PO BEDTIME 03/23/16 [History] Omeprazole 20 mg PO ACBREAKFAST 06/22/17 [History] traMADol HCl [Ultram] 100 mg PO BEDTIME 09/10/17 [History] Acetaminophen [Tylenol Extra Strength] 1,000 mg PO TID PRN 09/17/17 [History] Diclofenac Sodium [Voltaren] 75 mg PO WITHBREAKFAST 09/17/17 [History] Ferrous Sulfate [Iron] 325 mg PO DAILY 09/17/17 [History] Metoprolol Tartrate 50 mg PO BID 09/17/17 [History] Sennosides/Docusate Sodium [Senna-Docusate Sodium Tablet] 2 tab PO DAILY [History] oxyCODONE 5 mg PO Q6H PRN 09/17/17 [History] Past Medical History HEENT History: Reports: Impaired Vision Cardiovascular History: Reports: Hypertension Respiratory History: Reports: Other (See Below) Other Respiratory History: has had pneumonia once before. left lung partially collapsed Gastrointestinal History: Reports: Cholelithiasis, Chronic Constipation, Other ( See Below) Other Gastrointestinal History: "had holes in the intestine and had surgery to patch the hole back in the s CONTENT DIRECTOR History: Reports: Musculoskeletal History: Reports: Other (See Below) Other Musculoskeletal History: sciatica Neurological History: Reports: Neuropathy, Peripheral Other Neuro History: restless legs Psychiatric History: Reports: Depression Hematologic History: Reports: None Immunologic History: Reports: None Oncologic (Cancer) History: Reports: None Dermatologic History: Reports: Other (See Below) Other Dermatologic History: rocessa - Infectious Disease History Infectious Disease History: Reports: Chicken Pox, Measles - Past Surgical History Head Surgeries/Procedures: Reports: None HEENT Surgical History: Reports: Cataract Surgery, Tonsillectomy GI Surgical History: Reports: Appendectomy, Cholecystectomy, Colonoscopy Female Surgical History: Reports: Hysterectomy Musculoskeletal Surgical History: Reports: Other (See Below) Social & Family History - Family History Family Medical History: Noncontributory Endocrine/Metabolic: Reports: Diabetes, type II Oncologic: Reports: Esophageal Other Oncologic Family History: father of cancer - Tobacco Use Smoking Status *Q: Former Smoker Years of Tobacco use: 32 Used Tobacco, but Quit: Yes Month/Year Tobacco Last Used: 2009 Second Hand Smoke Exposure: No - Caffeine Use Caffeine Use: Reports: Coffee, Soda - Recreational Drug Use Recreational Drug Use: No H&P Review of Systems - Review of Systems: Review Of Systems: Unable To Obtain Exam - Exam Exam: See Below - Vital Signs Vital Signs: Last Vital Signs Temp 98.7 F 09/17/17 07:42 Pulse 73 09/17/17 10:33 Resp 20 09/17/17 10:33 BP 120/54 L 09/17/17 10:33 Pulse Ox 92 L 09/17/17 10:33 Weight: 157 lb 8 oz - Exam Quality Assessment: Supplemental Oxygen (On BiPAP) General: Alert, Moderate Distress. No: Oriented Neck: Supple Lungs: Decreased Breath Sounds Cardiovascular: Regular Rate, Regular Rhythm GI/Abdominal Exam: Soft Back Exam: No: CVA Tenderness (L), CVA Tenderness (R) Extremities: No: Pedal Edema Neuro Extensive - Mental Status: Alert. No: Oriented x3 Neuro Extensive - Motor, Sensory, Reflexes: No: Facial palsy (L), Facial Palsy ( R) Psychiatric: Alert (Alert but very fatiguing) - Patient Data Lab Results Last 24 hrs: Laboratory Results - last 24 hr 09/17/17 09/17/17 09/17/17 Range/Units 07:25 07:25 07:25 WBC 8.4 (5.0-10.0) 10^3/uL RBC 3.89 (3.80-5.50) 10^6/uL Hgb 10.9 L (12.0-16.0) g/dL Hct 34.1 L (37.0-47.0) % MCV 87.6 (82.0-92.0) fL MCH 28.1 (27.0-31.0) pg MCHC 32.1 (32.0-36.0) g/dL RDW 15.6 H (11.5-14.5) % Plt Count 173 (150-300) 10^3/uL MPV 7.3 L (7.4-10.4) fL Neut % (Auto) 82.2 H (50.0-70.0) % Lymph % (Auto) 7.0 L (20.0-40.0) % [place] % (Auto) 9.6 H (2.0-8.0) % Eos % (Auto) 0.9 L (1.0-3.0) % Baso % (Auto) 0.3 (0.0-1.0) % Neut # (Auto) 6.9 (2.5-7.0) 10^3/uL Lymph # (Auto) 0.6 L (1.0-4.0) 10^3/uL [place] # (Auto) 0.8 (0.1-0.8) 10^3/uL Eos # (Auto) 0.1 (0.1-0.3) 10^3/uL Baso # (Auto) 0.0 (0.0-0.1) 10^3/uL PT 10.6 (8.9-11.4) SEC INR 1.0 (0.9-1.1) APTT 23.4 (20.8-31.2) SEC ABG pH (7.35-7.45) ABG pCO2 (35-45) mmHG ABG pO2 (80-105) mmHG ABG HCO3 (22-26) mmol/L ABG Total CO2 (23-27) mmol/L ABG O2 Saturation (95-98) % ABG Base Excess (-2-3) mmol/L O2 Delivery Device Oxygen Flow Rate L/min Sodium 145 (136-145) mmol/L Potassium 5.4 H D (3.3-5.3) mmol/L Chloride 103 (98-115) mmol/L Carbon Dioxide 37.3 H (21.0-32.0) mmol/L BUN 14 (6-25) mg/dL Creatinine 0.67 D (0.51-1.17) mg/dL Est Cr Clr Drug Dosing 55.40 mL/min Estimated GFR (MDRD) > 60 mL/min Glucose 156 H (70-110) mg/dL Calcium 9.2 (8.7-10.3) mg/dL Total Bilirubin 0.3 (0.2-1.0) mg/dL AST 56 H (15-37) U/L ALT 35 (12-78) U/L Alkaline Phosphatase 119 H (46-116) IU/L Creatine Kinase 45 (26-276) U/L CK-MB (CK-2) 1.50 (0.00-4.30) ng/mL Troponin I < 0.04 (0.00-0.070) ng/mL B-Natriuretic Peptide 738 H (0-100) pg/mL Total Protein 8.0 (6.4-8.2) g/dL Albumin 3.15 (3.00-4.80) g/dL 09/17/17 09/17/17 Range/Units 07:55 10:35 WBC (5.0-10.0) 10^3/uL RBC (3.80-5.50) 10^6/uL Hgb (12.0-16.0) g/dL Hct (37.0-47.0) % MCV (82.0-92.0) fL MCH (27.0-31.0) pg MCHC (32.0-36.0) g/dL RDW (11.5-14.5) % Plt Count (150-300) 10^3/uL MPV (7.4-10.4) fL Neut % (Auto) (50.0-70.0) % Lymph % (Auto) (20.0-40.0) % [place] % (Auto) (2.0-8.0) % Eos % (Auto) (1.0-3.0) % Baso % (Auto) (0.0-1.0) % Neut # (Auto) (2.5-7.0) 10^3/uL Lymph # (Auto) (1.0-4.0) 10^3/uL [place] # (Auto) (0.1-0.8) 10^3/uL Eos # (Auto) (0.1-0.3) 10^3/uL Baso # (Auto) (0.0-0.1) 10^3/uL PT (8.9-11.4) SEC INR (0.9-1.1) APTT (20.8-31.2) SEC ABG pH 7.20 L* 7.20 L* (7.35-7.45) ABG pCO2 108 H* 103 H* (35-45) mmHG ABG pO2 125 H 72 L* (80-105) mmHG ABG HCO3 44.1 H 44.6 H (22-26) mmol/L ABG Total CO2 47 H 48 H (23-27) mmol/L ABG O2 Saturation 98 89 L (95-98) % ABG Base Excess 16 H 17 H (-2-3) mmol/L O2 Delivery Device Room air Bipap Oxygen Flow Rate 6 L/min Sodium (136-145) mmol/L Potassium (3.3-5.3) mmol/L Chloride (98-115) mmol/L Carbon Dioxide (21.0-32.0) mmol/L BUN (6-25) mg/dL Creatinine (0.51-1.17) mg/dL Est Cr Clr Drug Dosing mL/min Estimated GFR (MDRD) mL/min Glucose (70-110) mg/dL Calcium (8.7-10.3) mg/dL Total Bilirubin (0.2-1.0) mg/dL AST (15-37) U/L ALT (12-78) U/L Alkaline Phosphatase (46-116) IU/L Creatine Kinase (26-276) U/L CK-MB (CK-2) (0.00-4.30) ng/mL Troponin I (0.00-0.070) ng/mL B-Natriuretic Peptide (0-100) pg/mL Total Protein (6.4-8.2) g/dL Albumin (3.00-4.80) g/dL Result Diagrams: 09/17/17 07:25 09/17/17 07:25 Problem List Initiated/Reviewed/Updated: Yes Orders Last 24hrs: Active Orders 24 hr Category Date Time Status Patient Status Manage Transfer [TRANSFER] Routine ADT 09/17/17 08:47 Ordered BIPAP Adult [RT BiPAP/CPAP] [RC] ASDIRECTED Care 09/17/17 08:19 Active Cardiac Monitoring [RC] . DIRECTED Care 09/17/17 07:36 Active Bernal Catheter Insertion [Insert Urinary Catheter] [OM. Care 09/17/17 08:30 Ordered PC] Q24H Oxygen Therapy, ED [RC] ASDIRECTED Care 09/17/17 07:36 Active Peripheral IV Care [RC] . DIRECTED Care 09/17/17 07:36 Active Urinary Catheter Assessment [RC] ASDIRECTED Care 09/17/17 08:20 Active CXR [Chest 1V Frontal] [CR] Stat Exams 09/17/17 07:31 Taken Head wo Cont [CT] Stat Exams 09/17/17 07:42 Taken Sodium Chloride 0.9% [Syrex Flush] Med 09/17/17 07:36 Active 5 ml FLUSH Q8HR PRN Peripheral IV Insertion Adult [OM.PC] Routine Oth 09/17/17 07:36 Ordered EKG 12 Lead [EK] Routine Ther 09/17/17 07:15 Ordered Medication Orders Sodium Chloride (Syrex Flush) 5 ml FLUSH Q8HR PRN PRN Reason: Keep Vein Open Last Admin: 09/17/17 09:37 Dose: 5 ml Assessment/Plan Comment:: HISTORY OF PRESENT ILLNESS This 82-year-old female was admitted through the ED due epoxy and altered mental status. She was recently discharged from [facility] on September 12 due to acute on chronic respiratory failure improved with BiPAP while in the hospital. She has a history of chronic hypercapnia related to respiratory failure due to multiple comorbidities involving obstructive sleep apnea, diaphragmatic dysfunction, chronic obstructive pulmonary disease. She is to be on BiPAP at home however not 100% compliant in this. She also was given hydrocodone last night by her spouse d/t chronic pain and restless legs. At one point she was completely off of narcotic fentanyl patches however was recently placed on tramadol. Patient now is DNR Impression/plan Respiratory failure, hypercapnic. Patient will likely need several days of BiPAP with aggressive ongoing monitoring from physical therapist. Will transfer patient to [facility]. She was accepted direct admission intensive care unit. Spouse is in agreement with plan.
--- NOTE | 2017-09-17 11:16 | PCM.DCSUM1 ---
Discharge Summary - Hospital Course Brief History: Patient was admitted through the emergency department due to acute on chronic respiratory failure with a pH 7.2 CO2 greater than 100, respiratory distress. Altered mental status. After brief. A monitoring with BiPAP with little improvement patient was transferred to [facility] intensive care unit for ongoing BiPAP noninvasive since patient is a DNR - Discharge Data Discharge Date: 09/17/17 Discharge Disposition: Home, Self-Care 01 Condition: Critical - Patient Summary/Data Complications: Very little improvement in arterial blood gases with altered mental status and respiratory distress. Hospital Course: Patient was admitted to [facility] however I kept her in the ED for ongoing monitoring and decided to transfer due to no significant improvement in her respiration status. - Discharge Plan Home Medications: Home Meds Aspirin [Adult Low Dose Aspirin EC] 81 mg PO BEDTIME 07/05/15 [History] Citalopram [Celexa] 20 mg PO BEDTIME 07/09/15 [History] Gabapentin [Neurontin] 600 mg PO TID 03/23/16 [History] Multivits-Min/Iron/FA/Lutein [Centrum Silver Women Tablet] 1 each PO DAILY 03/23 [History] Simvastatin 20 mg PO BEDTIME 03/23/16 [History] Omeprazole 20 mg PO ACBREAKFAST 06/22/17 [History] traMADol HCl [Ultram] 100 mg PO BEDTIME 09/10/17 [History] Acetaminophen [Tylenol Extra Strength] 1,000 mg PO TID PRN 09/17/17 [History] Diclofenac Sodium [Voltaren] 75 mg PO WITHBREAKFAST 09/17/17 [History] Ferrous Sulfate [Iron] 325 mg PO DAILY 09/17/17 [History] Metoprolol Tartrate 50 mg PO BID 09/17/17 [History] Sennosides/Docusate Sodium [Senna-Docusate Sodium Tablet] 2 tab PO DAILY [History] oxyCODONE 5 mg PO Q6H PRN 09/17/17 [History] Forms: ED Department Discharge Referrals: Ronan Cazares, [employer] [Primary Care Provider] - - Discharge Summary/Plan Comment DC Time >30 min.: Yes Discharge Summary/Plan Comment: Final diagnosis Acute hypercapnic respiratory failure - Patient Data Vitals - Most Recent: Last Vital Signs Temp 98.7 F 09/17/17 07:42 Pulse 63 09/17/17 10:48 Resp 16 09/17/17 10:48 BP 111/41 L 09/17/17 10:48 Pulse Ox 94 L 09/17/17 10:48 Weight - Most Recent: 157 lb 8 oz Lab Results - Last 24 hrs: Laboratory Results - last 24 hr 09/17/17 09/17/17 09/17/17 Range/Units 07:25 07:25 07:25 WBC 8.4 (5.0-10.0) 10^3/uL RBC 3.89 (3.80-5.50) 10^6/uL Hgb 10.9 L (12.0-16.0) g/dL Hct 34.1 L (37.0-47.0) % MCV 87.6 (82.0-92.0) fL MCH 28.1 (27.0-31.0) pg MCHC 32.1 (32.0-36.0) g/dL RDW 15.6 H (11.5-14.5) % Plt Count 173 (150-300) 10^3/uL MPV 7.3 L (7.4-10.4) fL Neut % (Auto) 82.2 H (50.0-70.0) % Lymph % (Auto) 7.0 L (20.0-40.0) % [place] % (Auto) 9.6 H (2.0-8.0) % Eos % (Auto) 0.9 L (1.0-3.0) % Baso % (Auto) 0.3 (0.0-1.0) % Neut # (Auto) 6.9 (2.5-7.0) 10^3/uL Lymph # (Auto) 0.6 L (1.0-4.0) 10^3/uL [place] # (Auto) 0.8 (0.1-0.8) 10^3/uL Eos # (Auto) 0.1 (0.1-0.3) 10^3/uL Baso # (Auto) 0.0 (0.0-0.1) 10^3/uL PT 10.6 (8.9-11.4) SEC INR 1.0 (0.9-1.1) APTT 23.4 (20.8-31.2) SEC ABG pH (7.35-7.45) ABG pCO2 (35-45) mmHG ABG pO2 (80-105) mmHG ABG HCO3 (22-26) mmol/L ABG Total CO2 (23-27) mmol/L ABG O2 Saturation (95-98) % ABG Base Excess (-2-3) mmol/L O2 Delivery Device Oxygen Flow Rate L/min Sodium 145 (136-145) mmol/L Potassium 5.4 H D (3.3-5.3) mmol/L Chloride 103 (98-115) mmol/L Carbon Dioxide 37.3 H (21.0-32.0) mmol/L BUN 14 (6-25) mg/dL Creatinine 0.67 D (0.51-1.17) mg/dL Est Cr Clr Drug Dosing 55.40 mL/min Estimated GFR (MDRD) > 60 mL/min Glucose 156 H (70-110) mg/dL Calcium 9.2 (8.7-10.3) mg/dL Total Bilirubin 0.3 (0.2-1.0) mg/dL AST 56 H (15-37) U/L ALT 35 (12-78) U/L Alkaline Phosphatase 119 H (46-116) IU/L Creatine Kinase 45 (26-276) U/L CK-MB (CK-2) 1.50 (0.00-4.30) ng/mL Troponin I < 0.04 (0.00-0.070) ng/mL B-Natriuretic Peptide 738 H (0-100) pg/mL Total Protein 8.0 (6.4-8.2) g/dL Albumin 3.15 (3.00-4.80) g/dL 09/17/17 09/17/17 Range/Units 07:55 10:35 WBC (5.0-10.0) 10^3/uL RBC (3.80-5.50) 10^6/uL Hgb (12.0-16.0) g/dL Hct (37.0-47.0) % MCV (82.0-92.0) fL MCH (27.0-31.0) pg MCHC (32.0-36.0) g/dL RDW (11.5-14.5) % Plt Count (150-300) 10^3/uL MPV (7.4-10.4) fL Neut % (Auto) (50.0-70.0) % Lymph % (Auto) (20.0-40.0) % [place] % (Auto) (2.0-8.0) % Eos % (Auto) (1.0-3.0) % Baso % (Auto) (0.0-1.0) % Neut # (Auto) (2.5-7.0) 10^3/uL Lymph # (Auto) (1.0-4.0) 10^3/uL [place] # (Auto) (0.1-0.8) 10^3/uL Eos # (Auto) (0.1-0.3) 10^3/uL Baso # (Auto) (0.0-0.1) 10^3/uL PT (8.9-11.4) SEC INR (0.9-1.1) APTT (20.8-31.2) SEC ABG pH 7.20 L* 7.20 L* (7.35-7.45) ABG pCO2 108 H* 103 H* (35-45) mmHG ABG pO2 125 H 72 L* (80-105) mmHG ABG HCO3 44.1 H 44.6 H (22-26) mmol/L ABG Total CO2 47 H 48 H (23-27) mmol/L ABG O2 Saturation 98 89 L (95-98) % ABG Base Excess 16 H 17 H (-2-3) mmol/L O2 Delivery Device Room air Bipap Oxygen Flow Rate 6 L/min Sodium (136-145) mmol/L Potassium (3.3-5.3) mmol/L Chloride (98-115) mmol/L Carbon Dioxide (21.0-32.0) mmol/L BUN (6-25) mg/dL Creatinine (0.51-1.17) mg/dL Est Cr Clr Drug Dosing mL/min Estimated GFR (MDRD) mL/min Glucose (70-110) mg/dL Calcium (8.7-10.3) mg/dL Total Bilirubin (0.2-1.0) mg/dL AST (15-37) U/L ALT (12-78) U/L Alkaline Phosphatase (46-116) IU/L Creatine Kinase (26-276) U/L CK-MB (CK-2) (0.00-4.30) ng/mL Troponin I (0.00-0.070) ng/mL B-Natriuretic Peptide (0-100) pg/mL Total Protein (6.4-8.2) g/dL Albumin (3.00-4.80) g/dL Med Orders - Current: Current Medications Sodium Chloride (Syrex Flush) 5 ml FLUSH Q8HR PRN PRN Reason: Keep Vein Open Last Admin: 09/17/17 09:37 Dose: 5 ml Discontinued Medications Furosemide (Lasix) 40 mg IVPUSH NOW ONE Stop: 09/17/17 08:20 Last Admin: 09/17/17 09:34 Dose: 40 mg
[2017-09-17 12:12] VITALS: BP 131/93
== END 2017-09-17 11:55 | DRG 189 ==
LOC: KA.ED 07:09 → KA.MS 08:47
PROVIDERS: ADMIT Physician Assistant Medical; ATTEND Nurse Practitioner Family
DX: R06.89 Other abnormalities of breathing (principal); I50.9 Heart failure, unspecified; J96.92 Respiratory failure, unspecified with hypercapnia; Z66 Do not resuscitate; I10 Essential (primary) hypertension; G62.9 Polyneuropathy, unspecified; F32.9 Major depressive disorder, single episode, unspecified; Z88.2 Allergy status to sulfonamides; Z79.899 Other long term (current) drug therapy
CPT/HCPCS: 36415; 36600; 70450; 71045; 80053; 82550; 82553; 82803; 83880; 84484; 85025; 85610; 85730; 93005; 94660; 96374; 99284; 99285; J1940

== ENCOUNTER 2018-10-27 01:51 | Emergency (ER) | payer MEDICARE, OTHER ==
[2018-10-27] MEDS: Acetaminophen/oxyCODONE 325-5 MG Tab PO ONE (02:31)
--- NOTE | 2018-10-27 02:31 | EDM.PDOC ---
ED HPI GENERAL MEDICAL PROBLEM - General Chief Complaint: Lower Extremity Injury/Pain Stated Complaint: BILATERAL FOOT PAIN Time Seen by Provider: 10/27/18 02:24 Source of Information: Reports: Patient History Limitations: Reports: No Limitations - History of Present Illness INITIAL COMMENTS - FREE TEXT/NARRATIVE: Patient is an 83-year-old female who presents to the emergency department this morning with a complaint of bilateral foot pain. is at bedside and both confirmed this is a chronic situation and denies any injury. Patient does have a history of low back pain with bilateral lower extremity radicular discomfort. Does express that bottom of her feet hurt at rest. This does improve with movement. Patient states that she took Tylenol without relief and had difficult time sleeping, so decided to present to the ER. Patient does have chronic shortness of breath and is on home O2, however, she denies chest pain, calf pain, nausea, vomiting, bowel changes, or any injury. 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 Bilateral Feet Pain Score (Numeric/FACES): 5 - Related Data Allergies Allergy/AdvReac Type Severity Reaction Status Date / Time Sulfa (Sulfonamide Allergy Nausea and Verified 10/27/18 02:03 Antibiotics) Vomiting Home Meds: Home Meds Aspirin [Adult Low Dose Aspirin EC] 81 mg PO BEDTIME 07/05/15 [History] Citalopram [Celexa] 20 mg PO BEDTIME 07/09/15 [History] Gabapentin [Neurontin] 600 mg PO TID 03/23/16 [History] Multivits-Min/Iron/FA/Lutein [Centrum Silver Women Tablet] 1 each PO DAILY 03/23 [History] Simvastatin 20 mg PO BEDTIME 03/23/16 [History] Omeprazole 20 mg PO ACBREAKFAST 06/22/17 [History] traMADol HCl [Ultram] 50 mg PO TID PRN 09/10/17 [History] Acetaminophen [Tylenol Extra Strength] 1,000 mg PO TID PRN 09/17/17 [History] Diclofenac Sodium [Voltaren] 75 mg PO BID 09/17/17 [History] Metoprolol Tartrate 50 mg PO BID 09/17/17 [History] Sennosides/Docusate Sodium [Senna-Docusate Sodium Tablet] 2 tab PO DAILY PRN [History] Losartan [Cozaar] 100 mg PO DAILY 10/27/18 [History] Mirtazapine 15 mg PO BEDTIME 10/27/18 [History] Zaleplon 5 mg PO BEDTIME 10/27/18 [History] Past Medical History HEENT History: Reports: Impaired Vision Cardiovascular History: Reports: Hypertension Respiratory History: Reports: Other (See Below) Other Respiratory History: has had pneumonia once before. left lung partially collapsed Gastrointestinal History: Reports: Cholelithiasis, Chronic Constipation, Other ( See Below) Other Gastrointestinal History: "had holes in the intestine and had surgery to patch the hole back in the [employer] History: Reports: Musculoskeletal History: Reports: Other (See Below) Other Musculoskeletal History: sciatica Neurological History: Reports: Neuropathy, Peripheral Other Neuro History: restless legs Psychiatric History: Reports: Depression Hematologic History: Reports: None Immunologic History: Reports: None Oncologic (Cancer) History: Reports: None Dermatologic History: Reports: Other (See Below) Other Dermatologic History: rocessa - Infectious Disease History Infectious Disease History: Reports: Chicken Pox, Measles - Past Surgical History Head Surgeries/Procedures: Reports: None HEENT Surgical History: Reports: Cataract Surgery, Tonsillectomy GI Surgical History: Reports: Appendectomy, Cholecystectomy, Colonoscopy Female Surgical History: Reports: Hysterectomy Musculoskeletal Surgical History: Reports: Other (See Below) Other Musculoskeletal Surgeries/Procedures:: injection to the back 2 weeks ago. Social & Family History - Family History Family Medical History: Noncontributory Endocrine/Metabolic: Reports: Diabetes, type II Oncologic: Reports: Esophageal Other Oncologic Family History: father of cancer - Caffeine Use Caffeine Use: Reports: Coffee, Soda Review of Systems - Review of Systems Review Of Systems: ROS reveals no pertinent complaints other than HPI. Constitutional: Reports: No Symptoms Eyes: Reports: No Symptoms Ears: Reports: No Symptoms Nose: Reports: No Symptoms Mouth/Throat: Reports: No Symptoms Respiratory: Reports: No Symptoms Cardiovascular: Reports: No Symptoms GI/Abdominal: Reports: No Symptoms Genitourinary: Reports: No Symptoms Musculoskeletal: Reports: Foot Pain (Bilateral) Skin: Reports: No Symptoms Neurological: Reports: No Symptoms Psychiatric: Reports: No Symptoms ED EXAM, GENERAL - Physical Exam Exam: See Below Exam Limited By: No Limitations General Appearance: Alert, WD/WN, No Apparent Distress Throat/Mouth: Normal Inspection, Normal Oropharynx, No Airway Compromise Head: Atraumatic, Normocephalic Neck: Normal Inspection Respiratory/Chest: No Respiratory Distress, Lungs Clear, Normal Breath Sounds, No Accessory Muscle Use Cardiovascular: Regular Rate, Rhythm, No Murmur Peripheral Pulses: 2+: Popliteal (L), Popliteal (R), Posterior Tibial (L), Posterior Tibial (R), Dorsalis Pedis (L), Dorsalis Pedis (R) GI/Abdominal: Normal Bowel Sounds, Soft, Non-Tender Back Exam: Normal Inspection. No: CVA Tenderness (L), CVA Tenderness (R) Extremities: No Pedal Edema, Normal Capillary Refill, Leg Pain (Bilateral plantar tenderness at rest) Neurological: Alert, Oriented, Normal Cognition Psychiatric: Normal Affect, Normal Mood Skin Exam: Warm, Dry, Intact, Normal Color, No Rash Lymphatic: No Adenopathy Course - Vital Signs Last Recorded V/S: Last Vital Signs Temp 98.6 F 10/27/18 01:53 Pulse 74 10/27/18 01:53 Resp 20 10/27/18 01:53 BP 186/70 H 10/27/18 01:53 Pulse Ox 91 L 10/27/18 01:53 - Orders/Labs/Meds Orders: Active Orders 24 hr Category Date Time Status Acetaminophen/oxyCODONE [Percocet 325-5 MG] Med 10/27/18 02:24 Once 1 tab PO ONETIME ONE dexAMETHasone [Dexamethasone] Med 10/27/18 02:24 Once 4 mg IM ONETIME ONE - Re-Assessments/Exams Free Text/Narrative Re-Assessment/Exam: 10/27/18 02:40 Patient afebrile, vital signs stable, pain improving. Patient will follow-up with PCP. Departure - Departure Time of Disposition: 02:41 Disposition: Home, Self-Care 01 Condition: Good Clinical Impression: Radicular pain of both lower extremities - Discharge Information Instructions: Radicular Pain Referrals: Luz Rizzo MD [Physician] - Additional Instructions: Follow-up with PCP tomorrow. Return to emergency room sooner if symptoms continue or worsen. - My Orders Last 24 Hours: My Active Orders 10/27/18 02:24 Acetaminophen/oxyCODONE [Percocet 325-5 MG] 1 tab PO ONETIME ONE dexAMETHasone [Dexamethasone] 4 mg IM ONETIME ONE - Assessment/Plan Last 24 Hours: My Active Orders 10/27/18 02:24 Acetaminophen/oxyCODONE [Percocet 325-5 MG] 1 tab PO ONETIME ONE dexAMETHasone [Dexamethasone] 4 mg IM ONETIME ONE Assessment:: Radicular pain Plan: Follow-up with PCP
[2018-10-27] MEDS: Dexamethasone 4 MG/ML SDV IM ONE (02:36)
[2018-10-27] MEDS: Dexamethasone 10 MG/ML SDV IM ONE (02:36)
[2018-10-27 02:43] VITALS: BP 158/71
== END 2018-10-27 02:50 | disposition home or self-care (01) ==
LOC: KA.ED 01:51
DX: M54.10 Radiculopathy, site unspecified (principal); I10 Essential (primary) hypertension; F32.9 Major depressive disorder, single episode, unspecified; Z79.899 Other long term (current) drug therapy; Z88.2 Allergy status to sulfonamides
CPT/HCPCS: 96372; 99283; A9270; J1100

== ENCOUNTER 2018-11-13 16:35 | Emergency (ER) | payer MEDICARE, OTHER ==
--- NOTE | 2018-11-13 16:58 | EDM.PDOC ---
ED HPI GENERAL MEDICAL PROBLEM - General Chief Complaint: General Stated Complaint: toothache Time Seen by Provider: 11/13/18 16:45 Source of Information: Reports: Patient History Limitations: Reports: No Limitations - History of Present Illness INITIAL COMMENTS - FREE TEXT/NARRATIVE: Patient presents with toothache for 2 weeks. She has seen her dentist and is waiting for a procedure after she's done antibiotics. She finished a 10-day course of Cephalexin 500 mg tid yesterday. She doesn't have anything for pain control now and doesn't remember what she was taking. We looked in her record and found Percocet recently. She said this worked. - Related Data Allergies Allergy/AdvReac Type Severity Reaction Status Date / Time Sulfa (Sulfonamide Allergy Nausea and Verified 11/13/18 16:39 Antibiotics) Vomiting Home Meds: Home Meds Aspirin [Adult Low Dose Aspirin EC] 81 mg PO BEDTIME 07/05/15 [History] Citalopram [Celexa] 20 mg PO BEDTIME 07/09/15 [History] Gabapentin [Neurontin] 600 mg PO TID 03/23/16 [History] Multivits-Min/Iron/FA/Lutein [Centrum Silver Women Tablet] 1 each PO DAILY 03/23 [History] Simvastatin 20 mg PO BEDTIME 03/23/16 [History] Omeprazole 20 mg PO ACBREAKFAST 06/22/17 [History] traMADol HCl [Ultram] 50 mg PO TID PRN 09/10/17 [History] Acetaminophen [Tylenol Extra Strength] 1,000 mg PO TID PRN 09/17/17 [History] Diclofenac Sodium [Voltaren] 75 mg PO BID 09/17/17 [History] Metoprolol Tartrate 50 mg PO BID 09/17/17 [History] Sennosides/Docusate Sodium [Senna-Docusate Sodium Tablet] 2 tab PO DAILY PRN [History] Losartan [Cozaar] 100 mg PO DAILY 10/27/18 [History] Mirtazapine 15 mg PO BEDTIME 10/27/18 [History] Zaleplon 5 mg PO BEDTIME 10/27/18 [History] Past Medical History HEENT History: Reports: Impaired Vision Cardiovascular History: Reports: Hypertension Respiratory History: Reports: Other (See Below) Other Respiratory History: has had pneumonia once before. 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: Musculoskeletal History: Reports: Other (See Below) Other Musculoskeletal History: sciatica Neurological History: Reports: Neuropathy, Peripheral Other Neuro History: restless legs Psychiatric History: Reports: Depression Hematologic History: Reports: None Immunologic History: Reports: None Oncologic (Cancer) History: Reports: None Dermatologic History: Reports: Other (See Below) Other Dermatologic History: rocessa - Infectious Disease History Infectious Disease History: Reports: Chicken Pox, Measles - Past Surgical History Head Surgeries/Procedures: Reports: None HEENT Surgical History: Reports: Cataract Surgery, Tonsillectomy GI Surgical History: Reports: Appendectomy, Cholecystectomy, Colonoscopy Female Surgical History: Reports: Hysterectomy Musculoskeletal Surgical History: Reports: Other (See Below) Other Musculoskeletal Surgeries/Procedures:: injection to the back 2 weeks ago. Social & Family History - Family History Family Medical History: Noncontributory Endocrine/Metabolic: Reports: Diabetes, type II Oncologic: Reports: Esophageal Other Oncologic Family History: father of cancer - Caffeine Use Caffeine Use: Reports: Coffee, Soda ED ROS GENERAL - Review of Systems Review Of Systems: See Below Constitutional: Denies: Fever HEENT: Reports: Dental Pain. Denies: Throat Pain, Throat Swelling Respiratory: Reports: Shortness of Breath (chronic; COPD and a diaphragm injury) Cardiovascular: Denies: Chest Pain, Lightheadedness, Syncope Endocrine: Reports: No Symptoms GI/Abdominal: Reports: No Symptoms : Reports: No Symptoms Musculoskeletal: Reports: No Symptoms Skin: Reports: No Symptoms Neurological: Reports: No Symptoms Psychiatric: Reports: No Symptoms ED EXAM, GENERAL - Physical Exam Exam: See Below Exam Limited By: No Limitations General Appearance: Alert, WD/WN, No Apparent Distress Eye Exam: Bilateral Eye: EOMI, Normal Inspection, PERRL Ears: Normal External Exam, Hearing Grossly Normal Nose: Normal Inspection, No Blood Throat/Mouth: Normal Lips, Normal Voice, No Airway Compromise, Inflammation (of left lower gums and cheek, tender to palpate; second molar also tender) Head: Atraumatic, Normocephalic Neck: Normal Inspection, Full Range of Motion Respiratory/Chest: No Respiratory Distress, Decreased Breath Sounds (shallow, chronic) Neurological: Alert, Oriented, Normal Cognition, No Motor/Sensory Deficits Course - Re-Assessments/Exams Free Text/Narrative Re-Assessment/Exam: 11/13/18 17:09 The combination of Percocet and Sonata is risky so I discussed this with patient and her . She was started on Sonata up in [place] not too long ago and it doesn't seem to help anyway so they will stop that at least until she isn't taking Percocet. Percocet is the one she knows helps the pain. 11/13/18 17:20 Discussed findings and treatment plan with patient and her . Clindamycin and Percocet doses were given in ER and doses sent home to cover until tomorrow when she can go to pharmacy. Patient's blood pressure is high and she says it was last time in ER too. Will recheck after Percocet is in. 11/13/18 18:11 We kept her a little longer for BP management but good now. Departure - Departure Time of Disposition: 17:17 Disposition: Home, Self-Care 01 Condition: Good Clinical Impression: Cellulitis of gingiva, Tooth pain - Discharge Information Additional Instructions: 1. Drink 8 cups of water daily. 2. Take the Clindamycin antibiotic as directed. 3. Use the Percocet as directed when needed. 4. Follow up with your dentist next week as scheduled or sooner if worsening.
[2018-11-13] MEDS ORDERED: Acetaminophen/oxyCODONE 325-5 MG Tab PO ONE ×3 (17:03→17:13)
[2018-11-13] MEDS ORDERED: Clindamycin HCl 150 MG Cap PO SCH (17:15)
[2018-11-13] MEDS ORDERED: Metoprolol Tartrate 50 MG Tab PO ONE (17:25)
[2018-11-13 18:24] VITALS: BP 122/60; PULSE 69
== END 2018-11-13 18:10 | disposition home or self-care (01) ==
LOC: KA.ED 16:35
DX: K12.2 Cellulitis and abscess of mouth (principal); I10 Essential (primary) hypertension; Z79.899 Other long term (current) drug therapy; Z79.82 Long term (current) use of aspirin; Z88.2 Allergy status to sulfonamides
CPT/HCPCS: 99282; A9270; 99284

== ENCOUNTER 2018-12-01 09:42 | Emergency (ER) | payer MEDICARE, OTHER ==
[2018-12-01] MEDS ORDERED: Sodium Chloride 0.9% 1,000 ML IV ONE (10:35)
[2018-12-01] MEDS ORDERED: Sodium Chloride 0.9% 10 ML Syringe FLUSH PRN (10:35)
--- NOTE | 2018-12-01 10:47 | EDM.PDOC ---
ED HPI GENERAL MEDICAL PROBLEM - General Chief Complaint: General Stated Complaint: FALLING ALOT Time Seen by Provider: 12/01/18 10:34 Source of Information: Reports: Patient, Family () History Limitations: Reports: No Limitations - History of Present Illness INITIAL COMMENTS - FREE TEXT/NARRATIVE: Patient is an 83-year-old female who presents to the emergency department via private vehicle and has a complaint of weakness. Patient and her state that weakness has been progressing over the last week and became worse today. Weakness seems to affect just her lower extremities where when she standing or ambulating she feels like she is going to fall as her legs become weaker. She has not had a specific fall from a standing position, however, feels she may. Patient is currently on polypharmacy, but there has not been any recent change in medications or dosages. Patient wears CPAP with oxygen at night. states that her oxygen needs have been increasing. Patient denies chest pain, shortness of breath, abdominal pain, nausea, vomiting, diarrhea, fever, headache , blurry vision, or misuse of medication. Onset: Gradual Duration: Day(s): Location: Reports: Lower Extremity, Left, Lower Extremity, Right Quality: Reports: Ache Severity: Mild Improves with: Reports: None Worsens with: Reports: None Associated Symptoms: Reports: Weakness. Denies: Confusion, Chest Pain, Cough, Diaphoresis, Fever/Chills, Headaches, Nausea/Vomiting, Rash, Seizure, Shortness of Breath, Syncope - Related Data Allergies Allergy/AdvReac Type Severity Reaction Status Date / Time Sulfa (Sulfonamide Allergy Nausea and Verified 12/01/18 09:58 Antibiotics) Vomiting Home Meds: Home Meds Aspirin [Adult Low Dose Aspirin EC] 81 mg PO BEDTIME 07/05/15 [History] Citalopram [Celexa] 20 mg PO BEDTIME 07/09/15 [History] Gabapentin [Neurontin] 600 mg PO TID 03/23/16 [History] Multivits-Min/Iron/FA/Lutein [Centrum Silver Women Tablet] 1 each PO DAILY 03/23 [History] Simvastatin 20 mg PO BEDTIME 03/23/16 [History] Omeprazole 20 mg PO ACBREAKFAST 06/22/17 [History] traMADol HCl [Ultram] 50 mg PO TID PRN 09/10/17 [History] Acetaminophen [Tylenol Extra Strength] 1,000 mg PO TID PRN 09/17/17 [History] Diclofenac Sodium [Voltaren] 75 mg PO BID 09/17/17 [History] Metoprolol Tartrate 50 mg PO BID 09/17/17 [History] Sennosides/Docusate Sodium [Senna-Docusate Sodium Tablet] 2 tab PO DAILY PRN [History] Losartan [Cozaar] 100 mg PO DAILY 10/27/18 [History] Mirtazapine 15 mg PO BEDTIME 10/27/18 [History] Past Medical History HEENT History: Reports: Impaired Vision Cardiovascular History: Reports: Hypertension Respiratory History: Reports: Other (See Below) Other Respiratory History: has had pneumonia once before. 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: Musculoskeletal History: Reports: Other (See Below) Other Musculoskeletal History: sciatica Neurological History: Reports: Neuropathy, Peripheral Other Neuro History: restless legs Psychiatric History: Reports: Depression Hematologic History: Reports: None Immunologic History: Reports: None Oncologic (Cancer) History: Reports: None Dermatologic History: Reports: Other (See Below) Other Dermatologic History: rocessa - Infectious Disease History Infectious Disease History: Reports: Chicken Pox, Mumps - Past Surgical History Head Surgeries/Procedures: Reports: None HEENT Surgical History: Reports: Cataract Surgery, Tonsillectomy Cardiovascular Surgical History: Reports: None GI Surgical History: Reports: Appendectomy, Cholecystectomy, Colonoscopy Female Surgical History: Reports: Hysterectomy Musculoskeletal Surgical History: Reports: Other (See Below) Other Musculoskeletal Surgeries/Procedures:: injection to the back Social & Family History - Family History Family Medical History: Noncontributory Endocrine/Metabolic: Reports: Diabetes, type II Oncologic: Reports: Esophageal Other Oncologic Family History: father of cancer - Tobacco Use Smoking Status *Q: Former Smoker Used Tobacco, but Quit: Yes Month/Year Tobacco Last Used: 2009 - Caffeine Use Caffeine Use: Reports: Coffee - Recreational Drug Use Recreational Drug Use: No ED ROS GENERAL - Review of Systems Review Of Systems: ROS reveals no pertinent complaints other than HPI. Constitutional: Reports: Weakness HEENT: Reports: No Symptoms Respiratory: Reports: No Symptoms Cardiovascular: Reports: No Symptoms Endocrine: Reports: No Symptoms GI/Abdominal: Reports: No Symptoms : Reports: No Symptoms Musculoskeletal: Reports: Leg Pain (Of chronic nature) Skin: Reports: No Symptoms Neurological: Reports: No Symptoms Psychiatric: Reports: No Symptoms Hematologic/Lymphatic: Reports: No Symptoms ED EXAM, GENERAL - Physical Exam Exam: See Below Exam Limited By: No Limitations General Appearance: Alert, WD/WN, No Apparent Distress Eye Exam: Bilateral Eye: Normal Inspection Nose: Normal Inspection, Normal Mucosa, No Blood Throat/Mouth: Normal Inspection, Normal Oropharynx, No Airway Compromise Head: Atraumatic, Normocephalic Neck: Normal Inspection, Supple, Non-Tender, Full Range of Motion Respiratory/Chest: No Respiratory Distress, Lungs Clear, Normal Breath Sounds, No Accessory Muscle Use, Chest Non-Tender Cardiovascular: Regular Rate, Rhythm, No Murmur, No Rub GI/Abdominal: Normal Bowel Sounds, Soft, Non-Tender, No Organomegaly, No Distention, No Abnormal Bruit, No Mass, Pelvis Stable Back Exam: Normal Inspection, Paraspinal Tenderness (Minimal of chronic nature) . No: CVA Tenderness (L), CVA Tenderness (R) Extremities: Normal Inspection, No Pedal Edema Neurological: Alert, Oriented, CN II-XII Intact, Normal Cognition, No Motor/ Sensory Deficits Psychiatric: Normal Affect, Normal Mood Skin Exam: Warm, Dry, Intact, Normal Color, No Rash Lymphatic: No Adenopathy Course - Vital Signs Last Recorded V/S: Last Vital Signs Temp 99.3 F 12/01/18 09:47 Pulse 64 12/01/18 10:41 Resp 20 12/01/18 10:41 BP 152/64 H 12/01/18 10:41 Pulse Ox 97 12/01/18 10:41 - Orders/Labs/Meds Orders: Active Orders 24 hr Category Date Time Status Peripheral IV Care [RC] . DIRECTED Care 12/01/18 10:35 Ordered UA W/MICROSCOPIC [URIN] Stat Lab 12/01/18 09:57 Ordered Sodium Chloride 0.9% @ 999 MLS/HR (1000ml) Med 12/01/18 10:35 Ordered Sodium Chloride 0.9% [Normal Saline] 1,000 ml IV .BOLUS Sodium Chloride 0.9% [Saline Flush] Med 12/01/18 10:35 Ordered 10 ml FLUSH Q8HR PRN Peripheral IV Insertion Adult [OM.PC] Routine Oth 12/01/18 10:35 Ordered Medication Orders Sodium Chloride (Normal Saline) 1,000 mls @ 999 mls/hr IV .BOLUS ONE Stop: 12/01/18 11:35 Last Admin: 12/01/18 10:58 Dose: 999 mls/hr Sodium Chloride (Saline Flush) 10 ml FLUSH Q8HR PRN PRN Reason: keep vein open Last Admin: 12/01/18 10:58 Dose: 10 ml Labs: Laboratory Tests 12/01/18 12/01/18 Range/Units 10:10 10:10 WBC 4.97 L (5.00-10.00) 10^3/uL RBC 4.03 (3.80-5.50) 10^6/uL Hgb 12.8 (12.0-16.0) g/dL Hct 41.7 (37.0-47.0) % MCV 103.5 H D (82.0-92.0) fL MCH 31.8 H (27.0-31.0) pg MCHC 30.7 L (32.0-36.0) g/dL RDW 13.0 (11.5-14.5) % Plt Count 144 L (150-400) 10^3/uL MPV 9.6 (7.4-10.4) fL Immature Gran % (Auto) 2.8 (0.0-5.0) % Neut % (Auto) 63.6 (50.0-70.0) % Lymph % (Auto) 18.7 L (20.0-40.0) % Wells % (Auto) 13.3 H (2.0-8.0) % Eos % (Auto) 1.2 (1.0-3.0) % Baso % (Auto) 0.4 (0.0-1.0) % Immature Gran # (Auto) 0.14 (0.00-0.50) 10^3/uL Neut # (Auto) 3.16 (2.50-7.00) 10^3/uL Lymph # (Auto) 0.93 L (1.00-4.00) 10^3/uL Wells # (Auto) 0.66 (0.10-0.80) 10^3/uL Eos # (Auto) 0.06 L (0.10-0.30) 10^3/uL Baso # (Auto) 0.02 (0.00-0.10) 10^3/uL Sodium 143 (136-145) mmol/L Potassium 4.6 (3.3-5.3) mmol/L Chloride 96 L (98-115) mmol/L Carbon Dioxide 46.3 H (21.0-32.0) mmol/L Anion Gap 5.3 (5-15) mmol/L BUN 14 (6-25) mg/dL Creatinine 0.73 (0.51-1.17) mg/dL Est Cr Clr Drug Dosing 45.61 mL/min Estimated GFR (MDRD) > 60 mL/min Glucose 115 H (75 - 99) mg/dL Calcium 9.5 (8.7-10.3) mg/dL Total Bilirubin 0.8 (0.2-1.0) mg/dL AST 67 H (15-37) U/L ALT 52 (12-78) U/L Alkaline Phosphatase 87 (46-116) IU/L Total Protein 8.2 (6.4-8.2) g/dL Albumin 3.19 (3.00-4.80) g/dL Meds: Medications Generic Name Dose Route Start Last Admin Trade Name Freq PRN Reason Stop Dose Admin Sodium Chloride 1,000 mls @ 999 mls/hr 12/01/18 10:35 12/01/18 10:58 Normal Saline IV 12/01/18 11:35 999 mls/hr .BOLUS ONE Administration Sodium Chloride 10 ml 12/01/18 10:35 12/01/18 10:58 Saline Flush FLUSH 10 ml Q8HR PRN Administration keep vein open - Re-Assessments/Exams Free Text/Narrative Re-Assessment/Exam: 12/01/18 11:20 Patient afebrile, vital signs stable, denies shortness of breath or chest pain. Discussed case in depth with Ronan Cazares, nurse practitioner at [facility]. Being that all lab work is within normal limits, decision was made for patient to follow-up at [facility] today at 230. Departure - Departure Time of Disposition: 11:22 Disposition: Home, Self-Care 01 Condition: Good Clinical Impression: Muscle weakness of lower extremity - Discharge Information Instructions: Weakness, [id number] Referrals: Lucille Wilkins PA-C [Primary Care Provider] - Forms: ED Department Discharge Additional Instructions: Follow-up at [facility] today at 230. - My Orders Last 24 Hours: My Active Orders 12/01/18 09:57 UA W/MICROSCOPIC [URIN] Stat 12/01/18 10:35 Peripheral IV Care [RC] . DIRECTED Sodium Chloride 0.9% @ 999 MLS/HR (1000ml) Sodium Chloride 0.9% [Normal Saline] 1,000 ml IV .BOLUS Sodium Chloride 0.9% [Saline Flush] 10 ml FLUSH Q8HR PRN Peripheral IV Insertion Adult [OM.PC] Routine - Assessment/Plan Last 24 Hours: My Active Orders 12/01/18 09:57 UA W/MICROSCOPIC [URIN] Stat 12/01/18 10:35 Peripheral IV Care [RC] . DIRECTED Sodium Chloride 0.9% @ 999 MLS/HR (1000ml) Sodium Chloride 0.9% [Normal Saline] 1,000 ml IV .BOLUS Sodium Chloride 0.9% [Saline Flush] 10 ml FLUSH Q8HR PRN Peripheral IV Insertion Adult [OM.PC] Routine Assessment:: Lower extremity weakness Plan: Follow-up at [facility] today
[2018-12-01 10:53] LABS: CHLORIDE,CL 96 mmol/L (98-115); SODIUM,NA 143 mmol/L (136-145)
[2018-12-01 10:54] LABS: ANION GAP 5.3 mmol/L (5-15)
[2018-12-01 11:33] VITALS: BP 121/62; PULSE 66
== END 2018-12-01 11:55 | disposition home or self-care (01) ==
LOC: KA.ED 09:42
DX: M62.81 Muscle weakness (generalized) (principal); I10 Essential (primary) hypertension; F32.9 Major depressive disorder, single episode, unspecified; E11.9 Type 2 diabetes mellitus without complications; Z88.2 Allergy status to sulfonamides; Z79.82 Long term (current) use of aspirin; Z79.899 Other long term (current) drug therapy; Z87.891 Personal history of nicotine dependence
CPT/HCPCS: 36415; 80053; 85025; 96360; 99285; J7030; 99284

== ENCOUNTER 2019-03-29 10:30 | Inpatient (IN) | payer MEDICARE, OTHER ==
--- NOTE | 2019-03-29 11:21 | EDM.PDOC ---
ED HPI GENERAL MEDICAL PROBLEM - General Chief Complaint: General Stated Complaint: SHAKY Time Seen by Provider: 03/29/19 10:48 Source of Information: Reports: Patient, Family () History Limitations: Reports: No Limitations - History of Present Illness INITIAL COMMENTS - FREE TEXT/NARRATIVE: Patient is a 84-year-old female who presents to the emergency department via EMS this morning for complaint of shortness of breath. Per her , he states that yesterday she developed some shortness of breath. Patient is on home oxygen. However, he had to increase liter flow yesterday for some relief. Symptoms became worse today, so decided to call 911. Patient states she does have some midsternal chest discomfort. She denies nausea, vomiting, diarrhea, fever, headache, or lower extremity edema Onset: Gradual Onset Date: 03/28/19 Duration: Day(s): Severity: Moderate Improves with: Reports: None Worsens with: Reports: None Context: Reports: Other (At rest) Associated Symptoms: Reports: Chest Pain, Shortness of Breath Treatments [employer]: Reports: Oxygen - Related Data Allergies Allergy/AdvReac Type Severity Reaction Status Date / Time Sulfa (Sulfonamide Allergy Nausea and Verified 03/29/19 11:22 Antibiotics) Vomiting Home Meds: Home Meds Aspirin [Adult Low Dose Aspirin EC] 81 mg PO BEDTIME 07/05/15 [History] Citalopram [Celexa] 20 mg PO BEDTIME 07/09/15 [History] Multivit-Min/Iron/Folic/Lutein [Centrum Silver Women Tablet] 1 each PO DAILY [History] Simvastatin 20 mg PO BEDTIME 03/23/16 [History] Omeprazole 20 mg PO ACBREAKFAST 06/22/17 [History] traMADol HCl [Ultram] 50 mg PO TID PRN 09/10/17 [History] Acetaminophen [Tylenol Extra Strength] 1,000 mg PO TID PRN 09/17/17 [History] Diclofenac Sodium [Voltaren] 75 mg PO BID 09/17/17 [History] Metoprolol Tartrate 50 mg PO BID 09/17/17 [History] Sennosides/Docusate Sodium [Senna-Docusate Sodium Tablet] 2 tab PO DAILY PRN [History] Losartan [Cozaar] 100 mg PO DAILY 10/27/18 [History] Mirtazapine 15 mg PO BEDTIME 10/27/18 [History] Gabapentin [Neurontin] 600 mg PO BEDTIME #30 tab 12/03/18 [Rx] Albuterol Sulfate [Albuterol Sulfate Hfa] 2 puff INH Q4H PRN 03/29/19 [History] Furosemide [Lasix] 20 mg PO DAILY 03/29/19 [History] Hydrocodone/Acetaminophen [Hydrocodon-Acetaminophen 5-325] 1 tab PO Q4H PRN [History] Revefenacin [Yupelri] 3 ml INH DAILY 03/29/19 [History] Tiotropium [place] [Spiriva Respimat] 2 puff INH DAILY 03/29/19 [History] amLODIPine [Norvasc] 5 mg PO DAILY 03/29/19 [History] Past Medical History HEENT History: Reports: Impaired Vision Cardiovascular History: Reports: Hypertension Respiratory History: Reports: Other (See Below) Other Respiratory History: has had pneumonia once before. 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 History: Reports: Musculoskeletal History: Reports: Other (See Below) Other Musculoskeletal History: sciatica Neurological History: Reports: Neuropathy, Peripheral Other Neuro History: restless legs Psychiatric History: Reports: Depression Hematologic History: Reports: None Immunologic History: Reports: None Oncologic (Cancer) History: Reports: None Dermatologic History: Reports: Other (See Below) Other Dermatologic History: rocessa - Infectious Disease History Infectious Disease History: Reports: Chicken Pox, Measles - Past Surgical History Head Surgeries/Procedures: Reports: None HEENT Surgical History: Reports: Cataract Surgery, Tonsillectomy Cardiovascular Surgical History: Reports: None GI Surgical History: Reports: Appendectomy, Cholecystectomy, Colonoscopy Female Surgical History: Reports: Hysterectomy Musculoskeletal Surgical History: Reports: Other (See Below) Other Musculoskeletal Surgeries/Procedures:: injection to the back Social & Family History - Family History Family Medical History: Noncontributory Endocrine/Metabolic: Reports: Diabetes, type II Oncologic: Reports: Esophageal Other Oncologic Family History: father of cancer - Caffeine Use Caffeine Use: Reports: Coffee ED ROS GENERAL - Review of Systems Review Of Systems: Comprehensive ROS is negative, except as noted in HPI. Constitutional: Reports: No Symptoms HEENT: Reports: No Symptoms Respiratory: Reports: Shortness of Breath Cardiovascular: Reports: Chest Pain, Dyspnea on Exertion Endocrine: Reports: No Symptoms GI/Abdominal: Reports: No Symptoms : Reports: No Symptoms Musculoskeletal: Reports: No Symptoms Skin: Reports: No Symptoms Neurological: Reports: No Symptoms Psychiatric: Reports: No Symptoms Hematologic/Lymphatic: Reports: No Symptoms Immunologic: Reports: No Symptoms ED EXAM, GENERAL - Physical Exam Exam: See Below Exam Limited By: No Limitations General Appearance: Alert, WD/WN, Mild Distress Eye Exam: Bilateral Eye: Normal Inspection Nose: Normal Inspection, Normal Mucosa, No Blood Throat/Mouth: Normal Inspection, Normal Oropharynx, No Airway Compromise Head: Atraumatic, Normocephalic Neck: Normal Inspection Respiratory/Chest: Decreased Breath Sounds, Rales (Bibasilar) Cardiovascular: Regular Rate, Rhythm, No Murmur GI/Abdominal: Normal Bowel Sounds, Soft, Non-Tender Back Exam: Normal Inspection. No: CVA Tenderness (L), CVA Tenderness (R) Extremities: Normal Inspection, No Pedal Edema Neurological: Alert, Oriented, Normal Cognition Psychiatric: Normal Affect, Normal Mood Skin Exam: Warm, Dry, Intact, Normal Color, No Rash Lymphatic: No Adenopathy EKG INTERPRETATION EKG Date: 03/29/19 Time: 11:00 Rhythm: NSR Rate (Beats/Min): 80 [place]: Normal P-Wave: Present QRS: Normal ST-T: Normal QT: Normal Course - Vital Signs Last Recorded V/S: Last Vital Signs Temp 96.5 F 03/29/19 10:47 Pulse 83 03/29/19 10:47 Resp 16 03/29/19 10:47 BP 130/39 L 03/29/19 10:47 Pulse Ox 80 L 03/29/19 12:20 - Orders/Labs/Meds Orders: Active Orders 24 hr Category Date Time Status EKG Documentation Completion [RC] ASDIRECTED Care 03/29/19 10:52 Ordered Labs: Laboratory Tests 03/29/19 03/29/19 03/29/19 Range/Units 11:15 11:15 11:15 WBC 6.70 (5.00-10.00) 10^3/uL RBC 3.67 L (3.80-5.50) 10^6/uL Hgb 11.1 L D (12.0-16.0) g/dL Hct 38.5 (37.0-47.0) % MCV 104.9 H D (82.0-92.0) fL MCH 30.2 (27.0-31.0) pg MCHC 28.8 L (32.0-36.0) g/dL RDW 13.6 (11.5-14.5) % Plt Count 120 L (150-400) 10^3/uL MPV 9.5 (7.4-10.4) fL Add Manual Diff Yes Neutrophils % (Manual) 71 H (50-70) % Band Neutrophils % 6 (4-12) % Lymphocytes % (Manual) 15 L (20-40) % Monocytes % (Manual) 8 (2-8) % Absolute Neutrophils 4.76 Band Neutrophils # 0.40 Lymphocytes # (Manual) 1.01 Monocytes # (Manual) 0.54 Stomatocytes 2+ moderate PT TNP INR 1.2 H (0.9-1.1) APTT 24.6 (23.1-31.9) SEC Sodium 145 (136-145) mmol/L Potassium 4.7 (3.3-5.3) mmol/L Chloride 100 (98-115) mmol/L Carbon Dioxide 43.8 H (21.0-32.0) mmol/L Anion Gap 5.9 (5-15) mmol/L BUN 19 (6-25) mg/dL Creatinine 0.71 (0.51-1.17) mg/dL Est Cr Clr Drug Dosing TNP Estimated GFR (MDRD) > 60 mL/min Glucose 148 H (75 - 99) mg/dL Calcium 9.5 (8.7-10.3) mg/dL Total Bilirubin 0.5 (0.2-1.0) mg/dL AST 69 H (15-37) U/L ALT 51 (12-78) U/L Alkaline Phosphatase 93 (46-116) IU/L Troponin I < 0.04 (0.00-0.070) ng/mL B-Natriuretic Peptide (0-100) pg/mL Total Protein 8.1 (6.4-8.2) g/dL Albumin 2.96 L (3.00-4.80) g/dL 03/29/19 Range/Units 11:15 WBC (5.00-10.00) 10^3/uL RBC (3.80-5.50) 10^6/uL Hgb (12.0-16.0) g/dL Hct (37.0-47.0) % MCV (82.0-92.0) fL MCH (27.0-31.0) pg MCHC (32.0-36.0) g/dL RDW (11.5-14.5) % Plt Count (150-400) 10^3/uL MPV (7.4-10.4) fL Add Manual Diff Neutrophils % (Manual) (50-70) % Band Neutrophils % (4-12) % Lymphocytes % (Manual) (20-40) % Monocytes % (Manual) (2-8) % Absolute Neutrophils Band Neutrophils # Lymphocytes # (Manual) Monocytes # (Manual) Stomatocytes PT INR (0.9-1.1) APTT (23.1-31.9) SEC Sodium (136-145) mmol/L Potassium (3.3-5.3) mmol/L Chloride (98-115) mmol/L Carbon Dioxide (21.0-32.0) mmol/L Anion Gap (5-15) mmol/L BUN (6-25) mg/dL Creatinine (0.51-1.17) mg/dL Est Cr Clr Drug Dosing Estimated GFR (MDRD) mL/min Glucose (75 - 99) mg/dL Calcium (8.7-10.3) mg/dL Total Bilirubin (0.2-1.0) mg/dL AST (15-37) U/L ALT (12-78) U/L Alkaline Phosphatase (46-116) IU/L Troponin I (0.00-0.070) ng/mL B-Natriuretic Peptide 781 H (0-100) pg/mL Total Protein (6.4-8.2) g/dL Albumin (3.00-4.80) g/dL Meds: Medications Discontinued Medications Generic Name Dose Route Start Last Admin Trade Name Freq PRN Reason Stop Dose Admin Furosemide 20 mg 03/29/19 11:59 03/29/19 12:12 Lasix IVPUSH 03/29/19 12:00 20 mg NOW ONE Administration - Radiology Interpretation Free Text/Narrative:: Chest x-ray shows moderate congestive heart failure - Re-Assessments/Exams Free Text/Narrative Re-Assessment/Exam: 03/29/19 12:28 Patient afebrile, vital signs stable, sats 92% on nonrebreather. Discussed case with Dr. Palmira Wilkins. Patient will be admitted inpatient to her service and followed. 20 mg Lasix IV given in ER. 03/29/19 12:43 Departure - Departure Time of Disposition: 12:44 Disposition: Admitted As Inpatient 68 Condition: Poor Clinical Impression: CHF, Congestive heart failure - Discharge Information Referrals: Lucille Wilkins PA-C [Primary Care Provider] - Forms: ED Department Discharge - My Orders Last 24 Hours: My Active Orders 03/29/19 10:52 EKG Documentation Completion [RC] ASDIRECTED - Assessment/Plan Last 24 Hours: My Active Orders 03/29/19 10:52 EKG Documentation Completion [RC] ASDIRECTED Assessment:: CHF Plan: Admit inpatient to [place]
--- NOTE | 2019-03-29 11:33 | CR ---
[id number] RAD/RAD Chest PA or AP 1V EXAM: FRONTAL CHEST INDICATION: SHORT OF BREATH. COMPARISON: December 02, 2018. DISCUSSION: Stable cardiomegaly with development of moderate congestive heart failure. Persistent elevation of the right hemidiaphragm. Small bilateral effusions. Electrodes overlie the lower thoracic spinal canal. Chronic bilateral rib fractures. IMPRESSION: 1. Moderate congestive heart failure. Migel Lozano MD 03/29/19 1132 Thank you for allowing us to participate in the care of your patient.
[2019-03-29 11:58] LABS: ANION GAP 5.9 mmol/L (5-15); CHLORIDE,CL 100 mmol/L (98-115); SODIUM,NA 145 mmol/L (136-145)
[2019-03-29] MEDS ORDERED: Furosemide 40 MG/4 ML VIAL IVPUSH ONE ×2 (11:59→16:12)
--- NOTE | 2019-03-29 14:34 | PCM.HP.2 ---
H&P History of Present Illness - General Date of Service: 03/29/19 Admit Problem/Dx: Admission Diagnosis/Problem Admission Diagnosis/Problem CHF, Congestive heart failure Source of Information: Patient, Family, Old Records, Provider - History of Present Illness Initial Comments - Free Text/Narative: Mrs. Castanon was reportedly in her baseline state of health until a couple days ago when she began having increased difficulty breathing from baseline. Uses oxygen 2-4lpm at home along with BiPAP. endorses that she hasn't been taking her baseline furosemide every day. He has also noticed more difficulties with her chronic lower extremity pain for which she recently had a spinal cord stimulator placed. Currently, patient reports chronic low back and leg pain, but no chest pain or other new areas of pain. She states that her breathing feels a little better now than prior. feels she looks closer to her baseline now too. He endorses she doesn't do much other than lie around the house for several months to even longer. Bilateral Leg Pain Score (Numeric/FACES): 7 - Related Data Allergies/Adverse Reactions: Allergies Allergy/AdvReac Type Severity Reaction Status Date / Time Sulfa (Sulfonamide Allergy Nausea and Verified 03/29/19 11:22 Antibiotics) Vomiting Home Medications: Home Meds Aspirin [Adult Low Dose Aspirin EC] 81 mg PO BEDTIME 07/05/15 [History] Citalopram [Celexa] 20 mg PO BEDTIME 07/09/15 [History] Multivit-Min/Iron/Folic/Lutein [Centrum Silver Women Tablet] 1 each PO DAILY [History] Simvastatin 20 mg PO BEDTIME 03/23/16 [History] Omeprazole 20 mg PO ACBREAKFAST 06/22/17 [History] traMADol HCl [Ultram] 50 mg PO TID PRN 09/10/17 [History] Acetaminophen [Tylenol Extra Strength] 1,000 mg PO Q4H PRN 09/17/17 [History] Diclofenac Sodium [Voltaren] 75 mg PO BID 09/17/17 [History] Metoprolol Tartrate 50 mg PO BID 09/17/17 [History] Sennosides/Docusate Sodium [Senna-Docusate Sodium Tablet] 2 tab PO DAILY PRN [History] Losartan [Cozaar] 100 mg PO DAILY 10/27/18 [History] Mirtazapine 15 mg PO BEDTIME 10/27/18 [History] Gabapentin [Neurontin] 600 mg PO BEDTIME #30 tab 12/03/18 [Rx] Albuterol Sulfate [Albuterol Sulfate Hfa] 2 puff INH Q4H PRN 03/29/19 [History] Furosemide [Lasix] 20 mg PO DAILY 03/29/19 [History] Hydrocodone/Acetaminophen [Hydrocodon-Acetaminophen 5-325] 1 tab PO Q4H PRN [History] Revefenacin [Yupelri] 3 ml INH DAILY 03/29/19 [History] Tiotropium [place] [Spiriva Respimat] 2 puff INH DAILY 03/29/19 [History] amLODIPine [Norvasc] 5 mg PO DAILY 03/29/19 [History] Past Medical History HEENT History: Reports: Impaired Vision Cardiovascular History: Reports: Hypertension Respiratory History: Reports: Other (See Below) Other Respiratory History: has had pneumonia once before. 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 History: Reports: Musculoskeletal History: Reports: Other (See Below) Other Musculoskeletal History: sciatica Neurological History: Reports: Neuropathy, Peripheral Other Neuro History: restless legs Psychiatric History: Reports: Depression Endocrine/Metabolic History: Reports: None Hematologic History: Reports: None Immunologic History: Reports: None Oncologic (Cancer) History: Reports: None Dermatologic History: Reports: Other (See Below) Other Dermatologic History: rocessa - Infectious Disease History Infectious Disease History: Reports: Chicken Pox, Measles - Past Surgical History Head Surgeries/Procedures: Reports: None HEENT Surgical History: Reports: Cataract Surgery, Tonsillectomy Cardiovascular Surgical History: Reports: None GI Surgical History: Reports: Appendectomy, Cholecystectomy, Colonoscopy Female Surgical History: Reports: Hysterectomy Musculoskeletal Surgical History: Reports: Other (See Below) Other Musculoskeletal Surgeries/Procedures:: injection to the back Social & Family History - Family History Endocrine/Metabolic: Reports: Diabetes, type II Oncologic: Reports: Esophageal Other Oncologic Family History: father of cancer - Caffeine Use Caffeine Use: Reports: Coffee - Recreational Drug Use Recreational Drug Use: No H&P Review of Systems - Review of Systems: Review Of Systems: See Below General: Reports: Malaise, Weakness, Fatigue. Denies: Fever, Chills HEENT: Denies: Ear Pain, Eye Pain, Headaches Pulmonary: Reports: Shortness of Breath. Denies: Wheezing, Cough Cardiovascular: Reports: Edema. Denies: Chest Pain, Palpitations, Syncope Gastrointestinal: Denies: Abdominal Pain, Black Stool, Bloody Stool, Constipation, Diarrhea, Nausea, Vomiting Genitourinary: Denies: Dysuria, Frequency, Burning, Hematuria Musculoskeletal: Reports: Back Pain, Leg Pain, Joint Pain Skin: Reports: Pallor. Denies: Cyanosis, Jaundice Psychiatric: Reports: Confusion, Depression. Denies: Hallucinations Neurological: Reports: Numbness, Tingling, Tremors. Denies: Headache Exam - Exam Exam: See Below - Vital Signs Vital Signs: Last Vital Signs Temp 35.8 C 03/29/19 10:47 Pulse 83 03/29/19 10:47 Resp 16 03/29/19 10:47 BP 130/39 L 03/29/19 10:47 Pulse Ox 80 L 03/29/19 12:20 - Exam Physical Exam Comments:: GENERAL: Chronically ill appearing elderly white female lying in ED bed on her side with eyes closed. HEENT: Normocephalic, atraumatic. Conjunctiva clear. Nares patent without discharge. Mucous membranes moist, posterior pharynx unremarkable. NECK: Supple, no masses. CV: Regular rate and rhythm, no murmurs, rubs, or gallops. 2+ radial pulses. PULMONARY: Normal effort, decreased air movement in the R base, diffuse bilateral crackles, no wheezes or rhonchi. ABDOMEN: Positive bowel sounds, soft, nontender, nondistended. EXTREMITIES: Trace ankle edema, no cyanosis. MUSCULOSKELETAL: Moves all extremities well. NEUROLOGICAL: No obvious deficits. DERMATOLOGIC: No rashes or suspicious lesions in exposed areas. PSYCHIATRIC: Alert and oriented x4, but confused and notably poor memory and insight. - Patient Data Lab Results Last 24 hrs: Laboratory Results - last 24 hr 03/29/19 03/29/19 03/29/19 Range/Units 11:15 11:15 11:15 WBC 6.70 (5.00-10.00) 10^3/uL RBC 3.67 L (3.80-5.50) 10^6/uL Hgb 11.1 L D (12.0-16.0) g/dL Hct 38.5 (37.0-47.0) % MCV 104.9 H D (82.0-92.0) fL MCH 30.2 (27.0-31.0) pg MCHC 28.8 L (32.0-36.0) g/dL RDW 13.6 (11.5-14.5) % Plt Count 120 L (150-400) 10^3/uL MPV 9.5 (7.4-10.4) fL Add Manual Diff Yes Neutrophils % (Manual) 71 H (50-70) % Band Neutrophils % 6 (4-12) % Lymphocytes % (Manual) 15 L (20-40) % Monocytes % (Manual) 8 (2-8) % Absolute Neutrophils 4.76 Band Neutrophils # 0.40 Lymphocytes # (Manual) 1.01 Monocytes # (Manual) 0.54 Stomatocytes 2+ moderate PT TNP INR 1.2 H (0.9-1.1) APTT 24.6 (23.1-31.9) SEC Sodium 145 (136-145) mmol/L Potassium 4.7 (3.3-5.3) mmol/L Chloride 100 (98-115) mmol/L Carbon Dioxide 43.8 H (21.0-32.0) mmol/L Anion Gap 5.9 (5-15) mmol/L BUN 19 (6-25) mg/dL Creatinine 0.71 (0.51-1.17) mg/dL Est Cr Clr Drug Dosing TNP Estimated GFR (MDRD) > 60 mL/min Glucose 148 H (75 - 99) mg/dL Calcium 9.5 (8.7-10.3) mg/dL Total Bilirubin 0.5 (0.2-1.0) mg/dL AST 69 H (15-37) U/L ALT 51 (12-78) U/L Alkaline Phosphatase 93 (46-116) IU/L Troponin I < 0.04 (0.00-0.070) ng/mL B-Natriuretic Peptide (0-100) pg/mL Total Protein 8.1 (6.4-8.2) g/dL Albumin 2.96 L (3.00-4.80) g/dL 03/29/19 Range/Units 11:15 WBC (5.00-10.00) 10^3/uL RBC (3.80-5.50) 10^6/uL Hgb (12.0-16.0) g/dL Hct (37.0-47.0) % MCV (82.0-92.0) fL MCH (27.0-31.0) pg MCHC (32.0-36.0) g/dL RDW (11.5-14.5) % Plt Count (150-400) 10^3/uL MPV (7.4-10.4) fL Add Manual Diff Neutrophils % (Manual) (50-70) % Band Neutrophils % (4-12) % Lymphocytes % (Manual) (20-40) % Monocytes % (Manual) (2-8) % Absolute Neutrophils Band Neutrophils # Lymphocytes # (Manual) Monocytes # (Manual) Stomatocytes PT INR (0.9-1.1) APTT (23.1-31.9) SEC Sodium (136-145) mmol/L Potassium (3.3-5.3) mmol/L Chloride (98-115) mmol/L Carbon Dioxide (21.0-32.0) mmol/L Anion Gap (5-15) mmol/L BUN (6-25) mg/dL Creatinine (0.51-1.17) mg/dL Est Cr Clr Drug Dosing Estimated GFR (MDRD) mL/min Glucose (75 - 99) mg/dL Calcium (8.7-10.3) mg/dL Total Bilirubin (0.2-1.0) mg/dL AST (15-37) U/L ALT (12-78) U/L Alkaline Phosphatase (46-116) IU/L Troponin I (0.00-0.070) ng/mL B-Natriuretic Peptide 781 H (0-100) pg/mL Total Protein (6.4-8.2) g/dL Albumin (3.00-4.80) g/dL Result Diagrams: 03/30/19 07:32 03/30/19 07:32 Problem List Initiated/Reviewed/Updated: Yes Orders Last 24hrs: Active Orders 24 hr Category Date Time Status Patient Status [ADT] Routine ADT 03/29/19 12:45 Active Cardiac Monitoring [RC] CONTINUOUS Care 03/29/19 14:28 Ordered EKG Documentation Completion [RC] ASDIRECTED Care 03/29/19 10:52 Active Height and Weight [RC] DAILY Care 03/29/19 14:27 Ordered Insert Bernal Catheter [Insert Urinary Catheter] [OM.PC] Care 03/29/19 13:45 Ordered Q24H Intake and Output [RC] QSHIFT Care 03/29/19 14:28 Ordered Oxygen Therapy [RC] PRN Care 03/29/19 12:45 Inactive Oxygen Therapy [RC] PRN Care 03/29/19 14:27 Ordered Up With Assistance [RC] ASDIRECTED Care 03/29/19 14:27 Ordered Urinary Catheter Assessment [RC] ASDIRECTED Care 03/29/19 13:32 Active VTE/DVT Education [RC] PER UNIT ROUTINE Care 03/29/19 12:45 Active VTE/DVT Education [RC] PER UNIT ROUTINE Care 03/29/19 14:27 Inactive Vital Signs [RC] Q4H Care 03/29/19 12:45 Active 2 Gram Sodium Diet [DIET] Diet 03/29/19 Dinner Ordered Acetaminophen [Tylenol Extra Strength] Med 03/29/19 14:31 Ordered 1,000 mg PO Q4H PRN Aspirin [Halfprin] Med 03/29/19 21:00 Ordered 81 mg PO BEDTIME Citalopram [Celexa] Med 03/29/19 21:00 Ordered 20 mg PO BEDTIME Diclofenac Sodium [Voltaren] Med 03/29/19 21:00 Ordered 75 mg PO BID Docusate Sodium/Sennosides [Senna Plus] Med 03/29/19 14:31 Ordered 2 tab PO DAILY PRN Gabapentin Med 03/29/19 21:00 Ordered 600 mg PO BEDTIME Losartan [Cozaar] Med 03/30/19 09:00 Ordered 100 mg PO DAILY Metoprolol Tartrate [Lopressor] Med 03/29/19 21:00 Ordered 50 mg PO BID Mirtazapine [Remeron] Med 03/29/19 21:00 Ordered 15 mg PO BEDTIME Omeprazole Med 03/30/19 07:30 Ordered 20 mg PO ACBREAKFAST Revefenacin [Yupelri] Med 03/30/19 09:00 Ordered 3 ml INH DAILY Simvastatin [Zocor] Med 03/29/19 21:00 Ordered 20 mg PO BEDTIME Tiotropium [place] [Spiriva Respimat] Med 03/30/19 09:00 Ordered 2 puff INH DAILY amLODIPine [Norvasc] Med 03/30/19 09:00 Ordered 5 mg PO DAILY Resuscitation Status Routine Resus Stat 03/29/19 14:27 Ordered Medication Orders Acetaminophen (Tylenol Extra Strength) 1,000 mg PO Q4H PRN PRN Reason: Pain Amlodipine Besylate (Norvasc) 5 mg PO DAILY NOE Aspirin (Halfprin) 81 mg PO BEDTIME NOE Citalopram Hydrobromide (Celexa) 20 mg PO BEDTIME NOE Diclofenac Sodium (Voltaren) 75 mg PO BID NOE Non-Formulary Medication (Gabapentin) 600 mg PO BEDTIME NOE Non-Formulary Medication (Losartan [Cozaar]) 100 mg PO DAILY NOE Senna/Docusate Sodium (Senna Plus) 2 tab PO DAILY PRN PRN Reason: Constipation Assessment/Plan Comment:: HPI summary: 84yoF with a hx notable for chronic severe lung disease with hypoxemia and hypercapnea for which she uses home BiPAP and oxygen 2-4lpm at home as well as a history of HFpEFwas reportedly in her baseline state of health until a couple days ago when she began having increased difficulty breathing from baseline. endorses that she hasn't been taking her baseline furosemide every day. He has also noticed more difficulties with her chronic lower extremity pain for which she recently had a spinal cord stimulator placed. Notable ED findings and course: - Initially required nonrebreather mask for oxygenation, later decreased to 5lpm via nasal cannula - CBC/CMP/troponin/UA unremarkable except BNP 730 - CXR with moderate fluid overload - Furosemide 20mg IV given Hospital course: No evidence of infectious etiology, but obtained procalcitonin to assist in the future if condition deteriorates. Worsening respiratory status likely due to nonadherence to diuretic regimen in the setting of very poor baseline respiratory status. Hospitalization problems and plan: # Acute on chronic hypoxic respiratory failure # Acute on chronic heart failure with preserved ejection fraction: 09/18/17 echo with EF 65% and evidence of diastolic dysfunction. # Chronic hypercapnea: Baseline CO2 38-40. # Chronic obstructive lung disease: 2016 PFTs with air trapping. # R hemidiaphragm paralysis # ROGER - Continue oxygen titration to keep saturations in the 88-92% range to reduce risk of worsening chronic hypercarbia - Continue home BiPAP use while sleeping - Furosemide 20mg IV in addition to the 20mg IV given in ED - Monitor I/O and daily weight Chronic, stable conditions: # HTN:Continue losartan 100mg, amlodipine 5mg, [id number] BID. #Hepatic steatosis # Transaminitis, AST predominant: At baseline. # Constipation: Continue Senna-docusate prn. # Thrombocytopenia:At baseline. # HLD: Continue [id number]. 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 #OA /Lumbar degenerative disc disease /Chronic pain: Continue diclofenac 75mg BID, tramadol 50mg TID prn, Tylenol 1000mg prn.Followed by pain management withrecentspinal cord stimulator placement. # RLS:Continue gabapentin 600mg qHS. Poor control previously on Lyrica. # Depression: Continue mirtazapine 15mg, citalopram 20mg. # Insomnia:Continue melatonin qHS. # MCI # Prevention: Continue ASA 81mg. Hospitalization details: # FEN: No IVF. Electrolytes normal; recheck tomorrow. Low sodium diet. # PPX: Enoxaparin for DVT ppx. # Code status: Confirmed DNR/DNI status and lack of desire for ICU interventions. # Emergency contact: , who was updated at bedside. # Disposition: Admit to inpatient status. Anticipate at least 2 night stay for acute stabilization followed by possible need for fpc SNF placement consideration due to poor baseline status even prior to current exacerbation.
[2019-03-29] MEDS: Aspirin 81 MG Tab.EC PO SCH (20:40)
[2019-03-29] MEDS: Gabapentin 300 MG Cap PO SCH (20:40)
[2019-03-29] MEDS: Citalopram 20 MG Tab PO SCH (20:40)
[2019-03-29] MEDS: Mirtazapine 15 MG Tab PO SCH (20:41)
[2019-03-29] MEDS: Acetaminophen 500 MG Tab PO PRN (20:42)
[2019-03-29] MEDS: Diclofenac Sodium 75 MG Tab.EC PO SCH (20:42)
[2019-03-29] MEDS: Simvastatin 20 MG Tab PO SCH (20:42)
[2019-03-29] MEDS: Metoprolol Tartrate 50 MG Tab PO SCH (20:45)
[2019-03-29] MEDS ORDERED: traMADol 50 MG Tab PO ONE (21:45)
[2019-03-29] MEDS ORDERED: LORazepam 0.5 MG Tab PO ONE (23:55)
[2019-03-30] MEDS: Omeprazole 20 MG Cap.CR PO SCH (07:59)
[2019-03-30 08:31] LABS: CHLORIDE,CL 97 mmol/L (98-115); SODIUM,NA 144 mmol/L (136-145)
[2019-03-30] MEDS: Losartan 50 MG Tab PO SCH (08:39)
[2019-03-30] MEDS: Metoprolol Tartrate 50 MG Tab PO SCH ×2 (08:39→22:11)
[2019-03-30] MEDS: amLODIPine 5 MG Tab PO SCH (08:39)
[2019-03-30 08:40] LABS: ANION GAP 2.5 mmol/L (5-15)
[2019-03-30] MEDS ORDERED: Non-Formulary Medication 1 Each (Tiotropium Bromide [Spiriva Respimat] 2 PUFF) INH SCH (09:00)
[2019-03-30] MEDS: Diclofenac Sodium 75 MG Tab.EC PO SCH ×2 (10:00→22:10)
[2019-03-30] MEDS ORDERED: traMADol 50 MG Tab PO PRN (10:10)
--- NOTE | 2019-03-30 11:36 | PCM.PN ---
- General Info Date of Service: 03/30/19 Subjective Update: Mrs. Castanon, after awoken, denies complaints this morning. Reports breathing is easier and feels close to her baseline. Generally feels weak, at a level a little worse than her baseline, which the concurs with. They feel that her hands, which had been felt to be a little swollen yesterday, are much better. Earlier this morning, it was determined by that spinal cord stimulator battery had , likely contributing to complaints of nerve pain last night. He also reports that she has had her "night and day confused for a long time" and is quite restless and confused during the night at home at baseline and is sleeping most of the daytime hours. Denies fever, chills, cough, chest pain, abdominal pain, current leg pain, edema , or other concerns. - Patient Data Vitals - Most Recent: Last Vital Signs Temp 36.8 C 03/30/19 06:53 Pulse 85 03/30/19 08:39 Resp 20 03/30/19 06:53 BP 138/71 03/30/19 08:39 Pulse Ox 93 L 03/30/19 06:53 Weight - Most Recent: 73.624 kg I&O - Last 24 Hours: Intake & Output 03/29/19 03/30/19 03/30/19 22:59 06:59 14:59 Intake Total 450 200 Output Total 1000 100 Balance -550 100 Lab Results Last 24 Hours: Laboratory Results - last 24 hr 03/29/19 03/29/19 03/29/19 Range/Units 11:15 11:15 11:15 WBC (5.00-10.00) 10^3/uL RBC (3.80-5.50) 10^6/uL Hgb (12.0-16.0) g/dL Hct (37.0-47.0) % MCV (82.0-92.0) fL MCH (27.0-31.0) pg MCHC (32.0-36.0) g/dL RDW (11.5-14.5) % Plt Count (150-400) 10^3/uL MPV (7.4-10.4) fL Add Manual Diff Neutrophils % (Manual) 71 H (50-70) % Band Neutrophils % 6 (4-12) % Lymphocytes % (Manual) 15 L (20-40) % Monocytes % (Manual) 8 (2-8) % Eosinophils % (Manual) (1-3) % Basophils % (Manual) (0-1) % Absolute Neutrophils 4.76 Band Neutrophils # 0.40 Lymphocytes # (Manual) 1.01 Monocytes # (Manual) 0.54 Eosinophils # (Manual) Basophils # (Manual) Stomatocytes 2+ moderate RBC Morph Comment APTT 24.6 (23.1-31.9) SEC Sodium 145 (136-145) mmol/L Potassium 4.7 (3.3-5.3) mmol/L Chloride 100 (98-115) mmol/L Carbon Dioxide 43.8 H (21.0-32.0) mmol/L Anion Gap 5.9 (5-15) mmol/L BUN 19 (6-25) mg/dL Creatinine 0.71 (0.51-1.17) mg/dL Est Cr Clr Drug Dosing TNP Estimated GFR (MDRD) > 60 mL/min Glucose 148 H (75 - 99) mg/dL Lactic Acid (0.4-2.0) mmol/L Calcium 9.5 (8.7-10.3) mg/dL Total Bilirubin 0.5 (0.2-1.0) mg/dL AST 69 H (15-37) U/L ALT 51 (12-78) U/L Alkaline Phosphatase 93 (46-116) IU/L Troponin I < 0.04 (0.00-0.070) ng/mL B-Natriuretic Peptide (0-100) pg/mL Total Protein 8.1 (6.4-8.2) g/dL Albumin 2.96 L (3.00-4.80) g/dL TSH, Ultra Sensitive (0.340-4.820) uIU/mL Specimen Type Urine Color (YELLOW) Urine Appearance (CLEAR) Urine pH (5.0-9.0) Ur Specific [place] (1.005-1.030) Urine Protein (NEGATIVE) mg/dL Urine Glucose (UA) (NEGATIVE) mg/dL Urine Ketones (NEGATIVE) mg/dL Urine Occult Blood (NEGATIVE) Urine Nitrite (NEGATIVE) Urine Bilirubin (NEGATIVE) Urine Urobilinogen (0.2-1.0) E.U./dL Ur Leukocyte Esterase (NEGATIVE) Urine RBC (0-5) /HPF Urine WBC (0-5) /HPF Ur Epithelial Cells /LPF Urine Bacteria (NONE TO FEW) /HPF Hyaline Casts (NEGATIVE) /LPF 03/29/19 03/29/19 03/30/19 Range/Units 11:15 14:00 07:32 WBC 6.46 (5.00-10.00) 10^3/uL RBC 3.52 L (3.80-5.50) 10^6/uL Hgb 10.9 L (12.0-16.0) g/dL Hct 37.0 (37.0-47.0) % MCV 105.1 H (82.0-92.0) fL MCH 31.0 (27.0-31.0) pg MCHC 29.5 L (32.0-36.0) g/dL RDW 13.8 (11.5-14.5) % Plt Count 122 L (150-400) 10^3/uL MPV 9.5 (7.4-10.4) fL Add Manual Diff Yes Neutrophils % (Manual) 69 (50-70) % Band Neutrophils % (4-12) % Lymphocytes % (Manual) 21 (20-40) % Monocytes % (Manual) 8 (2-8) % Eosinophils % (Manual) 1 (1-3) % Basophils % (Manual) 1 (0-1) % Absolute Neutrophils 4.4574 Band Neutrophils # Lymphocytes # (Manual) 1.3566 Monocytes # (Manual) 0.5168 Eosinophils # (Manual) 0.0646 Basophils # (Manual) 0.0646 Stomatocytes RBC Morph Comment See note APTT (23.1-31.9) SEC Sodium (136-145) mmol/L Potassium (3.3-5.3) mmol/L Chloride (98-115) mmol/L Carbon Dioxide (21.0-32.0) mmol/L Anion Gap (5-15) mmol/L BUN (6-25) mg/dL Creatinine (0.51-1.17) mg/dL Est Cr Clr Drug Dosing Estimated GFR (MDRD) mL/min Glucose (75 - 99) mg/dL Lactic Acid (0.4-2.0) mmol/L Calcium (8.7-10.3) mg/dL Total Bilirubin (0.2-1.0) mg/dL AST (15-37) U/L ALT (12-78) U/L Alkaline Phosphatase (46-116) IU/L Troponin I (0.00-0.070) ng/mL B-Natriuretic Peptide 781 H (0-100) pg/mL Total Protein (6.4-8.2) g/dL Albumin (3.00-4.80) g/dL TSH, Ultra Sensitive (0.340-4.820) uIU/mL Specimen Type [place] Urine Color Yellow (YELLOW) Urine Appearance Clear (CLEAR) Urine pH 5.5 (5.0-9.0) Ur Specific [place] 1.015 (1.005-1.030) Urine Protein Negative (NEGATIVE) mg/dL Urine Glucose (UA) Negative (NEGATIVE) mg/dL Urine Ketones Negative (NEGATIVE) mg/dL Urine Occult Blood Negative (NEGATIVE) Urine Nitrite Negative (NEGATIVE) Urine Bilirubin Negative (NEGATIVE) Urine Urobilinogen 0.2 (0.2-1.0) E.U./dL Ur Leukocyte Esterase Negative (NEGATIVE) Urine RBC 0-5 (0-5) /HPF Urine WBC 0-5 (0-5) /HPF Ur Epithelial Cells Few /LPF Urine Bacteria Few (NONE TO FEW) /HPF Hyaline Casts Rare H (NEGATIVE) /LPF 03/30/19 03/30/19 Range/Units 07:32 07:32 WBC (5.00-10.00) 10^3/uL RBC (3.80-5.50) 10^6/uL Hgb (12.0-16.0) g/dL Hct (37.0-47.0) % MCV (82.0-92.0) fL MCH (27.0-31.0) pg MCHC (32.0-36.0) g/dL RDW (11.5-14.5) % Plt Count (150-400) 10^3/uL MPV (7.4-10.4) fL Add Manual Diff Neutrophils % (Manual) (50-70) % Band Neutrophils % (4-12) % Lymphocytes % (Manual) (20-40) % Monocytes % (Manual) (2-8) % Eosinophils % (Manual) (1-3) % Basophils % (Manual) (0-1) % Absolute Neutrophils Band Neutrophils # Lymphocytes # (Manual) Monocytes # (Manual) Eosinophils # (Manual) Basophils # (Manual) Stomatocytes RBC Morph Comment APTT (23.1-31.9) SEC Sodium 144 (136-145) mmol/L Potassium 4.4 (3.3-5.3) mmol/L Chloride 97 L (98-115) mmol/L Carbon Dioxide 48.9 H (21.0-32.0) mmol/L Anion Gap 2.5 L (5-15) mmol/L BUN 18 (6-25) mg/dL Creatinine 0.69 (0.51-1.17) mg/dL Est Cr Clr Drug Dosing 45.15 Estimated GFR (MDRD) > 60 mL/min Glucose 115 H (75 - 99) mg/dL Lactic Acid 0.5 (0.4-2.0) mmol/L Calcium 9.4 (8.7-10.3) mg/dL Total Bilirubin 0.8 (0.2-1.0) mg/dL AST 74 H (15-37) U/L ALT 47 (12-78) U/L Alkaline Phosphatase 82 (46-116) IU/L Troponin I 0.06 (0.00-0.070) ng/mL B-Natriuretic Peptide (0-100) pg/mL Total Protein 7.6 (6.4-8.2) g/dL Albumin 2.75 L (3.00-4.80) g/dL TSH, Ultra Sensitive 1.700 (0.340-4.820) uIU/mL Specimen Type Urine Color (YELLOW) Urine Appearance (CLEAR) Urine pH (5.0-9.0) Ur Specific [place] (1.005-1.030) Urine Protein (NEGATIVE) mg/dL Urine Glucose (UA) (NEGATIVE) mg/dL Urine Ketones (NEGATIVE) mg/dL Urine Occult Blood (NEGATIVE) Urine Nitrite (NEGATIVE) Urine Bilirubin (NEGATIVE) Urine Urobilinogen (0.2-1.0) E.U./dL Ur Leukocyte Esterase (NEGATIVE) Urine RBC (0-5) /HPF Urine WBC (0-5) /HPF Ur Epithelial Cells /LPF Urine Bacteria (NONE TO FEW) /HPF Hyaline Casts (NEGATIVE) /LPF Med Orders - Current: Current Medications Acetaminophen (Tylenol Extra Strength) 1,000 mg PO Q4H PRN PRN Reason: Pain Last Admin: 03/29/19 20:42 Dose: 1,000 mg Amlodipine Besylate (Norvasc) 5 mg PO DAILY [facility] Last Admin: 03/30/19 08:39 Dose: 5 mg Aspirin (Halfprin) 81 mg PO BEDTIME NOE Last Admin: 03/29/19 20:40 Dose: 81 mg Citalopram Hydrobromide (Celexa) 20 mg PO BEDTIME [facility] Last Admin: 03/29/19 20:40 Dose: 20 mg Diclofenac Sodium (Voltaren) 75 mg PO BID [facility] Last Admin: 03/30/19 10:00 Dose: Not Given Furosemide (Lasix) 40 mg IVPUSH DAILY NOE Gabapentin (Neurontin) 600 mg PO BEDTIME [facility] Last Admin: 03/29/19 20:40 Dose: 600 mg Losartan Potassium (Cozaar) 100 mg PO DAILY [facility] Last Admin: 03/30/19 08:39 Dose: 100 mg Metoprolol Tartrate (Lopressor) 50 mg PO BID [facility] Last Admin: 03/30/19 08:39 Dose: 50 mg Mirtazapine (Remeron) 15 mg PO BEDTIME [facility] Last Admin: 03/29/19 20:41 Dose: 15 mg Non-Formulary Medication (Revefenacin [Yupelri]) 3 ml INH DAILY [facility] Non-Formulary Medication (Tiotropium Bantry [Spiriva Respimat]) 2 puff INH DAILY [facility] Omeprazole (Omeprazole) 20 mg PO ACBREAKFAST [facility] Last Admin: 03/30/19 07:59 Dose: 20 mg Senna/Docusate Sodium (Senna Plus) 2 tab PO DAILY PRN PRN Reason: Constipation Simvastatin (Zocor) 20 mg PO BEDTIME [facility] Last Admin: 03/29/19 20:42 Dose: 20 mg Tramadol HCl (Ultram) 50 mg PO TID NOE Discontinued Medications Furosemide (Lasix) 20 mg IVPUSH NOW ONE Stop: 03/29/19 12:00 Last Admin: 03/29/19 12:12 Dose: 20 mg Furosemide (Lasix) 20 mg IVPUSH NOW ONE Stop: 03/29/19 16:13 Last Admin: 03/29/19 16:47 Dose: 20 mg Lorazepam (Ativan) 0.5 mg PO ONETIME ONE Stop: 03/29/19 23:56 Last Admin: 03/30/19 01:36 Dose: 0.5 mg Tramadol HCl (Ultram) 50 mg PO ONETIME ONE Stop: 03/29/19 21:46 Last Admin: 03/29/19 22:11 Dose: 50 mg Tramadol HCl (Ultram) 50 mg PO TID PRN PRN Reason: Pain (severe 7-10) - Exam Physical Findings Comments:: GENERAL: Chronically ill appearing elderly white female lying in hospital bed resting in no acute distress. HEENT: Normocephalic, atraumatic. Conjunctiva clear. Nares patent without discharge. Mucous membranes moist, posterior pharynx unremarkable. NECK: Supple, no masses. CV: Regular rate and rhythm, no murmurs, rubs, or gallops. 2+ radial pulses. PULMONARY: Normal effort, decreased air movement in the R base, diffuse bilateral crackles in the bases with interval improvement since admission, no wheezes or rhonchi. ABDOMEN: Positive bowel sounds, soft, nontender, nondistended. EXTREMITIES: Trace ankle edema, no cyanosis. MUSCULOSKELETAL: Moves all extremities well. NEUROLOGICAL: No obvious deficits. DERMATOLOGIC: No rashes or suspicious lesions in exposed areas. PSYCHIATRIC: Alert and oriented x4 after awoken, but drowsy. - Problem List Review Problem List Initiated/Reviewed/Updated: Yes - My Orders Last 24 Hours: My Active Orders 03/29/19 11:15 PROCALCITONIN [REF] Routine 03/29/19 14:27 Height and Weight [RC] 0700 Oxygen Therapy [RC] .PRN Up With Assistance [RC] ASDIRECTED VTE/DVT Education [RC] PER UNIT ROUTINE Resuscitation Status Routine 03/29/19 14:28 Intake and Output [RC] 1400,2200,0600 03/29/19 14:31 Acetaminophen [Tylenol Extra Strength] 1,000 mg PO Q4H PRN Docusate Sodium/Sennosides [Senna Plus] 2 tab PO DAILY PRN 03/29/19 21:00 Aspirin [Halfprin] 81 mg PO BEDTIME Citalopram [Celexa] 20 mg PO BEDTIME Diclofenac Sodium [Voltaren] 75 mg PO BID Gabapentin [Neurontin] 600 mg PO BEDTIME Metoprolol Tartrate [Lopressor] 50 mg PO BID Mirtazapine [Remeron] 15 mg PO BEDTIME Simvastatin [Zocor] 20 mg PO BEDTIME 03/29/19 Dinner 2 Gram Sodium Diet [DIET] 03/30/19 07:30 Omeprazole 20 mg PO ACBREAKFAST 03/30/19 09:00 Losartan [Cozaar] 100 mg PO DAILY Revefenacin [Yupelri] 3 ml INH DAILY Tiotropium [place] [Spiriva Respimat] 2 puff INH DAILY amLODIPine [Norvasc] 5 mg PO DAILY 03/30/19 10:15 Furosemide [Lasix] 40 mg IVPUSH DAILY 03/30/19 10:22 Consult to Case Management/Imaging Technician [CONS] Routine 03/30/19 10:30 traMADol [Ultram] 50 mg PO TID 03/31/19 05:11 BASIC METABOLIC PANEL,BMP [CHEM] AM 03/31/19 07:00 PT Evaluation and Treatment [CONS] Routine - Plan Plan:: HPI summary: 84yoF with a hx notable for chronic severe lung disease with hypoxemia and hypercapnea for which she uses home BiPAP and oxygen 2-4lpm at home as well as a history of HFpEF was reportedly in her baseline state of health until a couple days ago when she began having increased difficulty breathing from baseline. endorses that she hasn't been taking her baseline furosemide every day. He has also noticed more difficulties with her chronic lower extremity pain for which she recently had a spinal cord stimulator placed. Notable ED findings and course: - Initially required nonrebreather mask for oxygenation, later decreased to 5lpm via nasal cannula - CBC/CMP/troponin/UA unremarkable except BNP 730 - CXR with moderate fluid overload - Furosemide 20mg IV given Hospital course: No evidence of infectious etiology, but obtained procalcitonin to assist in the future if condition deteriorates. Worsening respiratory status likely due to nonadherence to diuretic regimen in the setting of very poor baseline respiratory status. Overall status improved in the past 24hrs, with 1.5kg weight loss and -500cc I/O balance. Overnight on 03/29, patient noted to be very restless, intermittently confused, and often complaining of nerve pain in her bilateral lower extremities. On the morning of 03/30, it was determined by that spinal cord stimulator battery had , likely contributing to complaints of nerve pain. He reported that she has had her "night and day confused for a long time" and is quite restless and confused during the night at home at baseline. Hospitalization problems and plan: # Acute on chronic hypoxic respiratory failure: Baseline O2 requirement 2-4lpm in addition to BiPAP. # Acute on chronic heart failure with preserved ejection fraction: 09/18/17 echo with EF 65% and evidence of diastolic dysfunction. # Chronic hypercapnia: Baseline CO2 38-40. # Chronic obstructive lung disease: 2016 PFTs with air trapping. # R hemidiaphragm paralysis # ROGER - Continue oxygen titration to keep saturations in the 88-92% range to reduce risk of worsening chronic hypercapnia - Continue home BiPAP use while sleeping; didn't bring until today, so will initiate this afternoon with nap - Furosemide 40mg IV - Monitor I/O and daily weight - Discontinue Bernal catheter now that status has improved and patient able to void on her own - Discontinue telemetry given no concerns in the 24hrs since placed and status improved # Cognitive impairment: Previous documentation of MCI, without recent evaluation. # Sleep-wake cycle disturbance: Longstanding per . # Chronic deconditioning - Referral to physical therapy and social services specialist for evaluation for possible snf SNF placement following acute hospitalization Chronic, stable conditions: # HTN:Continue losartan 100mg, amlodipine 5mg, [id number] BID. #Hepatic steatosis # Transaminitis, AST predominant: At baseline. # Constipation: Continue Senna-docusate prn. # Thrombocytopenia:At baseline. # HLD: Continue [id number]. 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 #OA /Lumbar degenerative disc disease /Chronic pain: Continue diclofenac 75mg BID, tramadol 50mg TID prn, Tylenol 1000mg prn.Followed by pain management withrecentspinal cord stimulator placement. # RLS:Continue gabapentin 600mg qHS. Poor control previously on Lyrica. # Depression: Continue mirtazapine 15mg, citalopram 20mg. # Prevention: Continue ASA 81mg. Hospitalization details: # FEN: No IVF. Electrolytes normal; recheck tomorrow. Low sodium diet. # PPX: Enoxaparin for DVT ppx. # Code status: DNR/DNI status, declines ICU interventions. # Emergency contact: , who was updated at bedside. # Disposition: Continue inpatient status. Anticipate at least an additional 2-3 night stay for acute stabilization followed by possible need for snf SNF placement consideration due to poor baseline status even prior to current exacerbation.
[2019-03-30] MEDS: traMADol 50 MG Tab PO SCH ×3 (11:40→22:12)
[2019-03-30] MEDS: Furosemide 40 MG/4 ML VIAL IVPUSH SCH (11:41)
[2019-03-30] MEDS ORDERED: Furosemide 40 MG/4 ML VIAL IVPUSH ONE (20:34)
[2019-03-30] MEDS: Simvastatin 20 MG Tab PO SCH (22:10)
[2019-03-30] MEDS: Aspirin 81 MG Tab.EC PO SCH (22:10)
[2019-03-30] MEDS: Citalopram 20 MG Tab PO SCH (22:10)
[2019-03-30] MEDS: Gabapentin 300 MG Cap PO SCH (22:11)
[2019-03-30] MEDS: Mirtazapine 15 MG Tab PO SCH (22:11)
[2019-03-30] MEDS ORDERED: LORazepam 0.5 MG Tab PO ONE (23:00)
[2019-03-31] MEDS ORDERED: LORazepam 0.5 MG Tab ONE (01:35)
[2019-03-31] MEDS: Omeprazole 20 MG Cap.CR PO SCH (07:43)
[2019-03-31 08:12] LABS: ANION GAP 6.5 mmol/L (5-15)
[2019-03-31] MEDS: amLODIPine 5 MG Tab PO SCH (08:30)
[2019-03-31] MEDS: Furosemide 40 MG/4 ML VIAL IVPUSH SCH (08:30)
[2019-03-31] MEDS: Losartan 50 MG Tab PO SCH (08:31)
[2019-03-31] MEDS: traMADol 50 MG Tab PO SCH ×3 (08:31→20:08)
[2019-03-31] MEDS ORDERED: Iopamidol 755 Mg/ML 100 ML Bottle IV ONE (08:31)
[2019-03-31] MEDS: Metoprolol Tartrate 50 MG Tab PO SCH ×2 (08:32→20:07)
[2019-03-31] MEDS ORDERED: Sodium Chloride 0.9% 100 ML IV SCH (08:45)
--- NOTE | 2019-03-31 10:24 | CT ---
[id number] CT/CT Chest W IV Exam: CT Chest W IV Clinical Data: HYPOXIA ELEVATED D-DIMER COMPARISON: CORRELATION IS MADE WITH THE EXAM OF JULY 08, 2015 FINDINGS: There are no pulmonary emboli There is progressive volume loss at the right lung base Consideration could be given to bronchoscopy IMPRESSION: PROGRESSIVE RIGHT LOWER LOBE COLLAPSE NO PULMONARY EMBOLI QUESTION OF UNDERLYING ENDOBRONCHIAL LESION Isaac Rico MD 03/31/19 [id number] Thank you for allowing us to participate in the care of your patient.
[2019-03-31] MEDS: Diclofenac Sodium 75 MG Tab.EC PO SCH (10:26)
[2019-03-31] MEDS: Diclofenac Sodium 50 MG Tab.EC PO SCH ×2 (10:54→20:08)
--- NOTE | 2019-03-31 12:14 | PCM.PN ---
- General Info Date of Service: 03/31/19 Subjective Update: Mrs. Casatnon reports breathing is continuing to be better than at admission. Ongoing general weakness. Much improved lower extremity nerve pain since spinal cord stimulator was charged. Continues to have nights and days seemingly confused. Ate breakfast this morning without difficulty; reports her appetite is at baseline. Denies fever, chills, cough, chest pain, abdominal pain, current leg pain, edema , or other concerns. - Patient Data Vitals - Most Recent: Last Vital Signs Temp 37.1 C 03/31/19 11:00 Pulse 78 03/31/19 11:00 Resp 22 H 03/31/19 11:00 BP 135/67 03/31/19 11:00 Pulse Ox 95 03/31/19 11:00 Weight - Most Recent: 72.575 kg I&O - Last 24 Hours: Intake & Output 03/30/19 03/31/19 03/31/19 22:59 06:59 14:59 Intake Total 400 250 Output Total 850 750 Balance -450 -500 Lab Results Last 24 Hours: Laboratory Results - last 24 hr 03/31/19 03/31/19 Range/Units 07:25 07:25 D-Dimer, Quantitative 957 H (<400) ng/mL Sodium 147 H (136-145) mmol/L Potassium 4.0 (3.3-5.3) mmol/L Chloride 96 L (98-115) mmol/L Carbon Dioxide 48.5 H (21.0-32.0) mmol/L Anion Gap 6.5 (5-15) mmol/L BUN 23 (6-25) mg/dL Creatinine 1.02 (0.51-1.17) mg/dL Est Cr Clr Drug Dosing 30.54 mL/min Estimated GFR (MDRD) 52 mL/min Glucose 112 H (75 - 99) mg/dL Calcium 9.5 (8.7-10.3) mg/dL Med Orders - Current: Current Medications Acetaminophen (Tylenol Extra Strength) 1,000 mg PO Q4H PRN PRN Reason: Pain Last Admin: 03/29/19 20:42 Dose: 1,000 mg Amlodipine Besylate (Norvasc) 5 mg PO DAILY NOE Last Admin: 03/31/19 08:30 Dose: 5 mg Aspirin (Halfprin) 81 mg PO BEDTIME NOE Last Admin: 03/30/19 22:10 Dose: 81 mg Citalopram Hydrobromide (Celexa) 20 mg PO BEDTIME [facility] Last Admin: 03/30/19 22:10 Dose: 20 mg Diclofenac Sodium (Voltaren) 50 mg PO BID [facility] Last Admin: 03/31/19 10:54 Dose: 50 mg Enoxaparin Sodium (Lovenox) 40 mg SUBCUT Q24H [facility] Furosemide (Lasix) 40 mg IVPUSH DAILY [facility] Last Admin: 03/31/19 08:30 Dose: 40 mg Gabapentin (Neurontin) 600 mg PO BEDTIME [facility] Last Admin: 03/30/19 22:11 Dose: 600 mg Sodium Chloride (Normal Saline) 100 mls @ 200 mls/min IV ASDIRECTED [facility] Last Admin: 03/31/19 10:43 Dose: 200 mls/min Losartan Potassium (Cozaar) 100 mg PO DAILY [facility] Last Admin: 03/31/19 08:31 Dose: 100 mg Metoprolol Tartrate (Lopressor) 50 mg PO BID [facility] Last Admin: 03/31/19 08:32 Dose: 50 mg Mirtazapine (Remeron) 15 mg PO BEDTIME [facility] Last Admin: 03/30/19 22:11 Dose: 15 mg Non-Formulary Medication (Revefenacin [Yupelri]) 3 ml INH DAILY [facility] Non-Formulary Medication (Tiotropium Edwards [Spiriva Respimat]) 2 puff INH DAILY [facility] Omeprazole (Omeprazole) 20 mg PO ACBREAKFAST [facility] Last Admin: 03/31/19 07:43 Dose: 20 mg Senna/Docusate Sodium (Senna Plus) 2 tab PO DAILY PRN PRN Reason: Constipation Simvastatin (Zocor) 20 mg PO BEDTIME [facility] Last Admin: 03/30/19 22:10 Dose: 20 mg Tramadol HCl (Ultram) 50 mg PO TID [facility] Last Admin: 03/31/19 08:31 Dose: 50 mg Discontinued Medications Diclofenac Sodium (Voltaren) 75 mg PO BID [facility] Last Admin: 03/31/19 10:26 Dose: Not Given Furosemide (Lasix) 20 mg IVPUSH NOW ONE Stop: 03/29/19 12:00 Last Admin: 03/29/19 12:12 Dose: 20 mg Furosemide (Lasix) 20 mg IVPUSH NOW ONE Stop: 03/29/19 16:13 Last Admin: 03/29/19 16:47 Dose: 20 mg Furosemide (Lasix) 20 mg IVPUSH NOW ONE Stop: 03/30/19 20:35 Last Admin: 03/30/19 20:45 Dose: 20 mg Iopamidol (Isovue-370 (76%)) 100 ml IV ONETIME ONE Stop: 03/31/19 08:32 Last Admin: 03/31/19 10:43 Dose: 75 ml Lorazepam (Ativan) 0.5 mg PO ONETIME ONE Stop: 03/29/19 23:56 Last Admin: 03/30/19 01:36 Dose: 0.5 mg Lorazepam (Ativan) 0.5 mg PO ONETIME ONE Stop: 03/30/19 23:01 Last Admin: 03/31/19 01:37 Dose: 0.5 mg Lorazepam (Ativan) Confirm Administered Dose 0.5 mg .ROUTE .STK-MED ONE Stop: 03/31/19 01:36 Last Admin: 03/31/19 01:40 Dose: Not Given Tramadol HCl (Ultram) 50 mg PO ONETIME ONE Stop: 03/29/19 21:46 Last Admin: 03/29/19 22:11 Dose: 50 mg Tramadol HCl (Ultram) 50 mg PO TID PRN PRN Reason: Pain (severe 7-10) - Exam Physical Findings Comments:: GENERAL: Chronically ill appearing elderly white female sitting in hospital bed resting in no acute distress. HEENT: Normocephalic, atraumatic. Conjunctiva clear. Nares patent without discharge. Mucous membranes moist, posterior pharynx unremarkable. NECK: Supple, no masses. CV: Regular rate and rhythm, no murmurs, rubs, or gallops. 2+ radial pulses. PULMONARY: Normal effort, decreased air movement in the R base, faint bilateral crackles with ongoing interval improvement since admission, no wheezes or rhonchi. ABDOMEN: Positive bowel sounds, soft, nontender, nondistended. EXTREMITIES: Trace ankle edema, no cyanosis. MUSCULOSKELETAL: Moves all extremities well. NEUROLOGICAL: No obvious deficits. DERMATOLOGIC: No rashes or suspicious lesions in exposed areas. PSYCHIATRIC: Alert and oriented x4, mildly confused. - Problem List Review Problem List Initiated/Reviewed/Updated: Yes - My Orders Last 24 Hours: My Active Orders 03/31/19 07:00 PT Evaluation and Treatment [CONS] Routine 03/31/19 08:45 Sodium Chloride 0.9% [Normal Saline] 100 ml IV ASDIRECTED 03/31/19 10:00 Diclofenac Sodium [Voltaren] 50 mg PO BID 04/01/19 09:00 Enoxaparin [Lovenox] 40 mg SUBCUT Q24H - Plan Plan:: HPI summary: 84yoF with a hx notable for chronic severe lung disease with hypoxemia and hypercapnia for which she uses home BiPAP and oxygen 2-4lpm at home as well as a history of HFpEF was reportedly in her baseline state of health until a couple days ago when she began having increased difficulty breathing from baseline. endorses that she hasn't been taking her baseline furosemide every day. He has also noticed more difficulties with her chronic lower extremity pain for which she recently had a spinal cord stimulator placed. Notable ED findings and course: - Initially required nonrebreather mask for oxygenation, later decreased to 5lpm via nasal cannula - CBC/CMP/troponin/UA unremarkable except BNP 730 - CXR with moderate fluid overload - Furosemide 20mg IV given Hospital course: No evidence of infectious etiology, but obtained procalcitonin to assist in the future if condition deteriorates. Worsening respiratory status likely due to nonadherence to diuretic regimen in the setting of very poor baseline respiratory status. Overall status improved in the first 24hrs, with 1.5kg weight loss and -500cc I/O balance. Overnight on 03/29, patient noted to be very restless, intermittently confused, and often complaining of nerve pain in her bilateral lower extremities, and on the morning of 03/30, it was determined by that spinal cord stimulator battery had , likely contributing to complaints of nerve pain. He reported that she has had her "night and day confused for a long time" and is quite restless and confused during the night at home at baseline. On 03/31, ongoing significant oxygen desaturation with transfers, so CT chest obtained and negative for PE, but with R lower lobe collapse since prior 2016 comparison study. Desaturations with transfers are noted to be without any respiratory symptoms, so query if this is actually what has been her baseline lately. Patient/ both again emphasized lack of desire for escalated care. Hospitalization problems and plan: # Acute on chronic hypoxic respiratory failure: Baseline O2 requirement 2-4lpm in addition to BiPAP. # Chronic hypercapnia: Baseline CO2 38-40. # Acute on chronic heart failure with preserved ejection fraction: 09/18/17 echo with EF 65% and evidence of diastolic dysfunction. # Chronic obstructive lung disease: 2016 PFTs with air trapping. # R hemidiaphragm paralysis # RLL collapse: Unsure of timecourse. # ROGER - Continue oxygen titration to keep saturations in the 88-92% range to reduce risk of worsening chronic hypercapnia - Continue home BiPAP use while sleeping; poorly complaint with use thus far , so highly encouraged BiPap use - Furosemide 40mg IV given this morning (after additional 20mg IV given last night); change to 40mg po BID starting this afternoon - Monitor I/O and daily weight # Cognitive impairment: Previous documentation of MCI, without recent evaluation. # Sleep-wake cycle disturbance: Longstanding per . - Continue orientation and encouragement of being up during the day - Start Rozeram qHS for delirium prevention and assistance with sleep-wake cycling # Chronic deconditioning: Evaluation by physical therapy and social services coordinator completed 03/31/19. - Plan for SNF placement at [facility], likely on 04/03/19 given upcoming weekend Chronic, stable conditions: # HTN:Continue losartan 100mg, amlodipine 5mg, [id number] BID. #Hepatic steatosis # Transaminitis, AST predominant: At baseline. # Constipation: Continue Senna-docusate prn. # Thrombocytopenia:At baseline. # HLD: Continue [id number]. 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 #OA /Lumbar degenerative disc disease /Chronic pain: Continue diclofenac 75mg BID, tramadol 50mg TID prn, Tylenol 1000mg prn.Followed by pain management withrecentspinal cord stimulator placement. # RLS:Continue gabapentin 600mg qHS. Poor control previously on Lyrica. # Depression: Continue mirtazapine 15mg, citalopram 20mg. # Prevention: Continue ASA 81mg. Hospitalization details: # FEN: No IVF. Electrolytes normal aside from mild hypernatremia; recheck tomorrow. Low sodium diet. # PPX: Enoxaparin for DVT ppx. # Code status: DNR/DNI status, declines ICU interventions. # Emergency contact: , who was updated at bedside. # Disposition: Continue inpatient status. Anticipate discharge to [facility] on 04/03/19 if ongoing improvement in clinical course closer to baseline status.
[2019-03-31] MEDS ORDERED: LORazepam 0.5 MG Tab PO PRN (12:16)
[2019-03-31] MEDS: REVEFENACIN 175 MCG/3 ML INH SCH ×2 (12:54→13:11)
[2019-03-31] MEDS: Furosemide 40 MG Tab PO SCH (16:40)
[2019-03-31] MEDS: Gabapentin 300 MG Cap PO SCH (20:08)
[2019-03-31] MEDS: Citalopram 20 MG Tab PO SCH (20:08)
[2019-03-31] MEDS: Simvastatin 20 MG Tab PO SCH (20:08)
[2019-03-31] MEDS: Mirtazapine 15 MG Tab PO SCH (20:08)
[2019-03-31] MEDS: Aspirin 81 MG Tab.EC PO SCH (20:08)
[2019-04-01] MEDS: Acetaminophen 500 MG Tab PO PRN ×2 (00:53→23:32)
[2019-04-01] MEDS: Omeprazole 20 MG Cap.CR PO SCH (07:33)
[2019-04-01 07:49] LABS: ANION GAP -3.2 mmol/L (5-15)
[2019-04-01] MEDS: Enoxaparin 40 MG/0.4 ML Syringe SUBCUT SCH (08:37)
[2019-04-01] MEDS: Diclofenac Sodium 50 MG Tab.EC PO SCH ×2 (08:39→20:09)
[2019-04-01] MEDS: traMADol 50 MG Tab PO SCH ×3 (08:39→20:08)
[2019-04-01] MEDS: Furosemide 40 MG Tab PO SCH (08:39)
[2019-04-01] MEDS: Metoprolol Tartrate 50 MG Tab PO SCH ×2 (08:41→20:11)
[2019-04-01] MEDS: amLODIPine 5 MG Tab PO SCH (08:41)
[2019-04-01] MEDS: Losartan 50 MG Tab PO SCH (08:41)
[2019-04-01] MEDS: REVEFENACIN 175 MCG/3 ML INH SCH (08:55)
--- NOTE | 2019-04-01 13:16 | PN ---
04/01/2019 PATIENT NAME: CATRACHO GUZMAN SUBJECTIVE: This is an 84-year-old female, who is being seen today on rounds for Dr. Rizzo, who has consulted and will complete all the orders. The patient was admitted to the hospital on 03/29/2019, due to generalized increased weakness, shortness of breath and congestive heart failure. She has been on Lasix 40 mg in the morning and 20 mg at night with her home baseline Lasix at 20 mg daily. The patient is less short of breath. She is to be using a BiPAP machine, but absolutely refuses. Her CO2 level this morning was at 50, which is a slight increase. Her O2 sats on 5 L, is usually above 90. She is mildly confused. CBC today shows a white count of 4.2, hemoglobin 11.3, creatinine 1.33 which is an increase, but may be due to a recent scan with contrast. She is on Lovenox injections for prophylactic PE, thrombolytic event. The patient today is somewhat lethargic. PHYSICAL EXAMINATION: GENERAL: Pleasant, elderly female, acutely ill. Color pale. at bedside as he is staying and helping care for his . She does have dementia. HEENT: Head, normocephalic. NECK: Range of motion supple. No cervical lymphadenopathy. Carotids are equal. HEART: Tones are regular without murmur or extra heart sounds. LUNGS: Fine crackles at both bases. No rhonchi or wheeze. No acute shortness of breath. O2 is in place. ABDOMEN: Soft, nondistended. No abdominal tenderness or organomegaly. EXTREMITIES: There is no peripheral edema. Good range of motion. Nursing staff states that in the middle of the night, she did attempt to get up by herself and her legs were weak and she fell to the floor without any apparent injury at this time. PSYCHIATRIC: Alert, but fell asleep during exam. She is mildly confused. DIAGNOSES: [id number] hypoxic respiratory failure, refusing to be on BiPAP. O2 requirement is 5 L/minute at this time. She has congestive heart failure with ejection fraction of 65. She has chronic obstructive pulmonary disease, cognitive impairment. PLAN: Continue on Lasix. She will receive Lasix 40 mg this morning and 20 mg in the afternoon and that was discussed with Dr. Luz Rizzo. Continue on the Lovenox for DVT prophylactics. Her code status is DNR and is at bedside. Possible transfer to swing bed unit tomorrow and in anticipation of discharge to [facility] when stable and PT has been completed. This was all discussed with Dr. Luz Rizzo, who also reviewed chart. /[id number]/MODL
[2019-04-01] MEDS: Furosemide 20 MG Tab PO SCH (15:48)
[2019-04-01] MEDS ORDERED: Furosemide 20 MG Tab PO SCH (16:00)
[2019-04-01] MEDS: Gabapentin 300 MG Cap PO SCH (20:08)
[2019-04-01] MEDS: Mirtazapine 15 MG Tab PO SCH (20:09)
[2019-04-01] MEDS: Simvastatin 20 MG Tab PO SCH (20:09)
[2019-04-01] MEDS: Citalopram 20 MG Tab PO SCH (20:09)
[2019-04-01] MEDS: Aspirin 81 MG Tab.EC PO SCH (20:09)
[2019-04-02] MEDS: Omeprazole 20 MG Cap.CR PO SCH (07:22)
[2019-04-02 07:44] LABS: ANION GAP 3.6 mmol/L (5-15)
[2019-04-02] MEDS: Enoxaparin 40 MG/0.4 ML Syringe SUBCUT SCH (08:57)
[2019-04-02] MEDS: Diclofenac Sodium 50 MG Tab.EC PO SCH ×2 (08:57→20:55)
[2019-04-02] MEDS: traMADol 50 MG Tab PO SCH ×3 (08:57→20:55)
[2019-04-02] MEDS: Furosemide 40 MG Tab PO SCH (08:58)
[2019-04-02] MEDS: REVEFENACIN 175 MCG/3 ML INH SCH (08:59)
[2019-04-02] MEDS: Metoprolol Tartrate 50 MG Tab PO SCH ×2 (08:59→20:57)
[2019-04-02] MEDS: amLODIPine 5 MG Tab PO SCH (09:00)
[2019-04-02] MEDS: Losartan 50 MG Tab PO SCH (09:01)
--- NOTE | 2019-04-02 16:36 | PCM.PN ---
- General Info Date of Service: 04/02/19 Subjective Update: Mrs. Castanon reports breathing is continuing to be improved. Ongoing general weakness. Much improved lower extremity nerve pain since spinal cord stimulator was charged. Continues to have nights and days confused. Reports her appetite is at baseline. believes she is at her baseline from the past several months, and endorses need for assistance with caring for her. Denies fever, chills, cough, chest pain, abdominal pain, current leg pain, edema , or other concerns. - Patient Data Vitals - Most Recent: Last Vital Signs Temp 36.6 C 04/02/19 15:00 Pulse 64 04/02/19 15:00 Resp 20 04/02/19 15:00 BP 137/68 04/02/19 15:00 Pulse Ox 90 L 04/02/19 15:00 Weight - Most Recent: 72.66 kg I&O - Last 24 Hours: Intake & Output 04/02/19 04/02/19 04/02/19 06:59 14:59 22:59 Intake Total 50 400 Output Total 450 1050 Balance -400 -650 Lab Results Last 24 Hours: Laboratory Results - last 24 hr 04/02/19 04/02/19 Range/Units 07:05 07:05 WBC 4.47 L (5.00-10.00) 10^3/uL RBC 3.57 L (3.80-5.50) 10^6/uL Hgb 11.1 L (12.0-16.0) g/dL Hct 36.5 L (37.0-47.0) % MCV 102.2 H (82.0-92.0) fL MCH 31.1 H (27.0-31.0) pg MCHC 30.4 L (32.0-36.0) g/dL RDW 13.8 (11.5-14.5) % Plt Count 139 L (150-400) 10^3/uL MPV 9.3 (7.4-10.4) fL Add Manual Diff Yes Neutrophils % (Manual) 57 (50-70) % Lymphocytes % (Manual) 22 (20-40) % Immat Monocytes % (Man) Monocytes % (Manual) 14 H (2-8) % Eosinophils % (Manual) 2 (1-3) % Basophils % (Manual) 1 (0-1) % Absolute Neutrophils 2.5479 Lymphocytes # (Manual) 0.9834 Monocytes # (Manual) 0.6258 Eosinophils # (Manual) 0.0894 Basophils # (Manual) 0.0447 Sodium 140 (136-145) mmol/L Potassium 4.1 (3.3-5.3) mmol/L Chloride 94 L (98-115) mmol/L Carbon Dioxide 46.5 H (21.0-32.0) mmol/L Anion Gap 3.6 L (5-15) mmol/L BUN 33 H (6-25) mg/dL Creatinine 1.26 H (0.51-1.17) mg/dL Est Cr Clr Drug Dosing 24.73 mL/min Estimated GFR (MDRD) 41 mL/min Glucose 124 H (75 - 99) mg/dL Calcium 9.6 (8.7-10.3) mg/dL Med Orders - Current: Current Medications Acetaminophen (Tylenol Extra Strength) 1,000 mg PO Q4H PRN PRN Reason: Pain Last Admin: 04/01/19 23:32 Dose: 1,000 mg Amlodipine Besylate (Norvasc) 5 mg PO DAILY [facility] Last Admin: 04/02/19 09:00 Dose: 5 mg Aspirin (Halfprin) 81 mg PO BEDTIME [facility] Last Admin: 04/01/19 20:09 Dose: 81 mg Citalopram Hydrobromide (Celexa) 20 mg PO BEDTIME [facility] Last Admin: 04/01/19 20:09 Dose: 20 mg Diclofenac Sodium (Voltaren) 50 mg PO BID [facility] Last Admin: 04/02/19 08:57 Dose: 50 mg Enoxaparin Sodium (Lovenox) 40 mg SUBCUT Q24H [facility] Last Admin: 04/02/19 08:57 Dose: 40 mg Furosemide (Lasix) 40 mg PO DAILY [facility] Last Admin: 04/02/19 08:58 Dose: 40 mg Furosemide (Lasix) 20 mg PO DAILY@1600 [facility] Last Admin: 04/01/19 15:48 Dose: 20 mg Gabapentin (Neurontin) 600 mg PO BEDTIME [facility] Last Admin: 04/01/19 20:08 Dose: 600 mg Lorazepam (Ativan) 0.5 mg PO DAILY PRN PRN Reason: agitation/restlessness Last Admin: 04/01/19 22:08 Dose: 0.5 mg Losartan Potassium (Cozaar) 100 mg PO DAILY [facility] Last Admin: 04/02/19 09:01 Dose: 100 mg Metoprolol Tartrate (Lopressor) 50 mg PO BID [facility] Last Admin: 04/02/19 08:59 Dose: 50 mg Mirtazapine (Remeron) 15 mg PO BEDTIME [facility] Last Admin: 04/01/19 20:09 Dose: 15 mg Yupelri 175 Mcg/3 Ml ([place] Med) 0 ml INH DAILY [facility] Last Admin: 04/02/19 08:59 Dose: 3 ml Non-Formulary Medication (Tiotropium [place] [Spiriva Respimat]) 2 puff INH DAILY [facility] Omeprazole (Omeprazole) 20 mg PO ACBREAKFAST [facility] Last Admin: 04/02/19 07:22 Dose: 20 mg Ramelteon (Rozerem) 8 mg PO BEDTIME [facility] Last Admin: 04/01/19 20:09 Dose: 8 mg Senna/Docusate Sodium (Senna Plus) 2 tab PO DAILY PRN PRN Reason: Constipation Simvastatin (Zocor) 20 mg PO BEDTIME [facility] Last Admin: 04/01/19 20:09 Dose: 20 mg Tramadol HCl (Ultram) 50 mg PO TID [facility] Last Admin: 04/02/19 13:27 Dose: 50 mg Discontinued Medications Diclofenac Sodium (Voltaren) 75 mg PO BID [facility] Last Admin: 03/31/19 10:26 Dose: Not Given Furosemide (Lasix) 20 mg IVPUSH NOW ONE Stop: 03/29/19 12:00 Last Admin: 03/29/19 12:12 Dose: 20 mg Furosemide (Lasix) 20 mg IVPUSH NOW ONE Stop: 03/29/19 16:13 Last Admin: 03/29/19 16:47 Dose: 20 mg Furosemide (Lasix) 40 mg IVPUSH DAILY [facility] Last Admin: 03/31/19 08:30 Dose: 40 mg Furosemide (Lasix) 20 mg IVPUSH NOW ONE Stop: 03/30/19 20:35 Last Admin: 03/30/19 20:45 Dose: 20 mg Furosemide (Lasix) 40 mg PO BIDDIURETIC [facility] Last Admin: 04/01/19 08:39 Dose: 40 mg Furosemide (Lasix) 20 mg PO DAILY@1600 [facility] Sodium Chloride (Normal Saline) 100 mls @ 200 mls/min IV ASDIRECTED [facility] Last Admin: 03/31/19 10:43 Dose: 200 mls/min Iopamidol (Isovue-370 (76%)) 100 ml IV ONETIME ONE Stop: 03/31/19 08:32 Last Admin: 03/31/19 10:43 Dose: 75 ml Lorazepam (Ativan) 0.5 mg PO ONETIME ONE Stop: 03/29/19 23:56 Last Admin: 03/30/19 01:36 Dose: 0.5 mg Lorazepam (Ativan) 0.5 mg PO ONETIME ONE Stop: 03/30/19 23:01 Last Admin: 03/31/19 01:37 Dose: 0.5 mg Lorazepam (Ativan) Confirm Administered Dose 0.5 mg .ROUTE .STK-MED ONE Stop: 03/31/19 01:36 Last Admin: 03/31/19 01:40 Dose: Not Given Ramelteon (Rozerem) 8 mg PO BEDTIME [facility] Tramadol HCl (Ultram) 50 mg PO ONETIME ONE Stop: 03/29/19 21:46 Last Admin: 03/29/19 22:11 Dose: 50 mg Tramadol HCl (Ultram) 50 mg PO TID PRN PRN Reason: Pain (severe 7-10) - Exam Physical Findings Comments:: GENERAL: Chronically ill appearing elderly white female sitting in hospital bed resting in no acute distress. HEENT: Normocephalic, atraumatic. Conjunctiva clear. Nares patent without discharge. Mucous membranes moist, posterior pharynx unremarkable. NECK: Supple, no masses. CV: Regular rate and rhythm, no murmurs, rubs, or gallops. 2+ radial pulses. PULMONARY: Normal effort, decreased air movement in the R base, faint bilateral crackles, no wheezes or rhonchi. ABDOMEN: Positive bowel sounds, soft, nontender, nondistended. EXTREMITIES: Trace ankle edema, no cyanosis. MUSCULOSKELETAL: Moves all extremities well. NEUROLOGICAL: No obvious deficits. DERMATOLOGIC: No rashes or suspicious lesions in exposed areas. PSYCHIATRIC: Alert and oriented x4, mildly confused, but interactive and appropriate. - Problem List Review Problem List Initiated/Reviewed/Updated: Yes - My Orders Last 24 Hours: My Active Orders 04/01/19 16:00 Furosemide [Lasix] 20 mg PO DAILY@1600 - Plan Plan:: HPI summary: 84yoF with a hx notable for chronic severe lung disease with hypoxemia and hypercapnia for which she uses home BiPAP and oxygen 2-4lpm at home as well as a history of HFpEF was reportedly in her baseline state of health until a couple days ago when she began having increased difficulty breathing from baseline. endorses that she hasn't been taking her baseline furosemide every day. He has also noticed more difficulties with her chronic lower extremity pain for which she recently had a spinal cord stimulator placed. Notable ED findings and course: - Initially required nonrebreather mask for oxygenation, later decreased to 5lpm via nasal cannula - CBC/CMP/troponin/UA unremarkable except BNP 730 - CXR with moderate fluid overload - Furosemide 20mg IV given Hospital course: No evidence of infectious etiology, but obtained procalcitonin to assist in the future if condition deteriorates. Worsening respiratory status likely due to nonadherence to diuretic regimen in the setting of very poor baseline respiratory status. Overall status improved in the first 24hrs, with 1.5kg weight loss and -500cc I/O balance. Overnight on 03/29, patient noted to be very restless, intermittently confused, and often complaining of nerve pain in her bilateral lower extremities, and on the morning of 03/30, it was determined by that spinal cord stimulator battery had , likely contributing to complaints of nerve pain. He reported that she has had her "night and day confused for a long time" and is quite restless and confused during the night at home at baseline. On 03/31, ongoing significant oxygen desaturation with transfers, so CT chest obtained and negative for PE, but with R lower lobe collapse since prior 2016 comparison study. Desaturations with transfers are noted to be without any respiratory symptoms, so query if this is actually what has been her baseline lately. Ongoing improvement now to baseline oxygenation status. Patient/ both again emphasized lack of desire for escalated care. Hospitalization problems and plan: # Acute on chronic hypoxic respiratory failure: Baseline O2 requirement 2-4lpm in addition to BiPAP. # Chronic hypercapnia: Baseline CO2 38-40. # Acute on chronic heart failure with preserved ejection fraction: 09/18/17 echo with EF 65% and evidence of diastolic dysfunction. # Chronic obstructive lung disease: 2016 PFTs with air trapping. # R hemidiaphragm paralysis # RLL collapse: Unsure of timecourse. # ROGER - Continue oxygen titration to keep saturations in the 88-92% range to reduce risk of worsening chronic hypercapnia - Continue home BiPAP use while sleeping; poorly complaint with use thus far , so highly encouraged BiPap use - Volume status stable on furosemide 40/20mg po BID - Continue Yupelri and montelukast - Monitor I/O and daily weight # Cognitive impairment: Previous documentation of MCI, without recent evaluation. # Sleep-wake cycle disturbance: Longstanding per . - Continue orientation and encouragement of being up during the day - Continue Rozeram qHS for delirium prevention and assistance with sleep- wake cycling # Chronic deconditioning: Evaluation by physical therapy and social contact worker completed 03/31/19. - Plan for SNF placement at [facility], likely on 04/03/19 given upcoming weekend Chronic, stable conditions: # HTN:Continue losartan 100mg, amlodipine 5mg, [id number] BID. #Hepatic steatosis # Transaminitis, AST predominant: At baseline. # Constipation: Continue Senna-docusate prn. # Thrombocytopenia:At baseline. # HLD: Continue [id number]. 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 #OA /Lumbar degenerative disc disease /Chronic pain: Continue diclofenac 75mg BID, Tylenol 1000mg prn.Followed by pain management withrecentspinal cord stimulator placement. Change tramadol to 25mg TID per request of patient/ to see if adequately controls pain. # RLS:Continue gabapentin 600mg qHS. Poor control previously on Lyrica. # Depression: Controlled and stable. Continue mirtazapine 15mg, citalopram 20mg. # Prevention: Continue ASA 81mg. Hospitalization details: # FEN: No IVF. Electrolytes normal. Low sodium diet. # PPX: Enoxaparin for DVT ppx. # Code status: DNR/DNI status, declines ICU interventions. # Emergency contact: , who was updated at bedside. # Disposition: Continue inpatient status. Anticipate discharge to [facility] on 04/03/19; additional night of inpatient stay required given weekend coordination of new SNF admission.
[2019-04-02] MEDS: Furosemide 20 MG Tab PO SCH (16:45)
[2019-04-02] MEDS: Citalopram 20 MG Tab PO SCH (20:54)
[2019-04-02] MEDS: Aspirin 81 MG Tab.EC PO SCH (20:55)
[2019-04-02] MEDS: Gabapentin 300 MG Cap PO SCH (20:55)
[2019-04-02] MEDS: Mirtazapine 15 MG Tab PO SCH (20:55)
[2019-04-02] MEDS: Simvastatin 20 MG Tab PO SCH (20:55)
[2019-04-02] MEDS: Acetaminophen 500 MG Tab PO PRN (22:05)
[2019-04-03] MEDS: Acetaminophen 500 MG Tab PO PRN ×3 (06:07→22:02)
[2019-04-03] MEDS: Omeprazole 20 MG Cap.CR PO SCH (07:33)
[2019-04-03] MEDS: traMADol 50 MG Tab PO SCH ×4 (07:33→21:08)
[2019-04-03] MEDS: REVEFENACIN 175 MCG/3 ML INH SCH (08:30)
[2019-04-03] MEDS: Enoxaparin 40 MG/0.4 ML Syringe SUBCUT SCH (08:45)
[2019-04-03] MEDS: Furosemide 40 MG Tab PO SCH (08:46)
[2019-04-03] MEDS: Diclofenac Sodium 50 MG Tab.EC PO SCH ×2 (08:46→21:09)
[2019-04-03] MEDS: amLODIPine 5 MG Tab PO SCH (08:49)
[2019-04-03] MEDS: Losartan 50 MG Tab PO SCH (08:49)
[2019-04-03] MEDS: Metoprolol Tartrate 50 MG Tab PO SCH ×2 (08:49→21:09)
--- NOTE | 2019-04-03 12:42 | PCM.PN ---
- General Info Date of Service: 04/03/19 Subjective Update: Mrs. Castanon reports breathing is at baseline. Ongoing general weakness. Intermittent, but improved, lower extremity nerve pain. Continues to have nights and days confused. Appetite is at baseline. believes she is at her baseline from the past several months, and endorses need for assistance with caring for her. Denies fever, chills, cough, chest pain, abdominal pain, current leg pain, edema , or other concerns. - Patient Data Vitals - Most Recent: Last Vital Signs Temp 35.9 C 04/03/19 06:46 Pulse 76 04/03/19 08:49 Resp 20 04/03/19 06:46 BP 133/76 04/03/19 08:49 Pulse Ox 95 04/03/19 08:30 Weight - Most Recent: 72.66 kg I&O - Last 24 Hours: Intake & Output 04/02/19 04/03/19 04/03/19 22:59 06:59 14:59 Intake Total 450 100 Output Total 1750 350 Balance -1300 -250 Med Orders - Current: Current Medications Acetaminophen (Tylenol Extra Strength) 1,000 mg PO Q4H PRN PRN Reason: Pain Last Admin: 04/03/19 06:07 Dose: 1,000 mg Amlodipine Besylate (Norvasc) 5 mg PO DAILY [facility] Last Admin: 04/03/19 08:49 Dose: 5 mg Aspirin (Halfprin) 81 mg PO BEDTIME [facility] Last Admin: 04/02/19 20:55 Dose: 81 mg Citalopram Hydrobromide (Celexa) 20 mg PO BEDTIME [facility] Last Admin: 04/02/19 20:54 Dose: 20 mg Diclofenac Sodium (Voltaren) 50 mg PO BID [facility] Last Admin: 04/03/19 08:46 Dose: 50 mg Enoxaparin Sodium (Lovenox) 40 mg SUBCUT Q24H [facility] Last Admin: 04/03/19 08:45 Dose: 40 mg Furosemide (Lasix) 40 mg PO DAILY [facility] Last Admin: 04/03/19 08:46 Dose: 40 mg Furosemide (Lasix) 20 mg PO DAILY@1600 [facility] Last Admin: 04/02/19 16:45 Dose: 20 mg Gabapentin (Neurontin) 600 mg PO BEDTIME [facility] Last Admin: 04/02/19 20:55 Dose: 600 mg Losartan Potassium (Cozaar) 100 mg PO DAILY [facility] Last Admin: 04/03/19 08:49 Dose: 100 mg Metoprolol Tartrate (Lopressor) 50 mg PO BID [facility] Last Admin: 04/03/19 08:49 Dose: 50 mg Mirtazapine (Remeron) 15 mg PO BEDTIME [facility] Last Admin: 04/02/19 20:55 Dose: 15 mg Yupelri 175 Mcg/3 Ml ([place] Med) 0 ml INH DAILY [facility] Last Admin: 04/03/19 08:30 Dose: 3 ml Non-Formulary Medication (Tiotropium [place] [Spiriva Respimat]) 2 puff INH DAILY [facility] Omeprazole (Omeprazole) 20 mg PO ACBREAKFAST [facility] Last Admin: 04/03/19 07:33 Dose: 20 mg Ramelteon (Rozerem) 8 mg PO BEDTIME [facility] Last Admin: 04/02/19 20:54 Dose: 8 mg Senna/Docusate Sodium (Senna Plus) 2 tab PO DAILY PRN PRN Reason: Constipation Simvastatin (Zocor) 20 mg PO BEDTIME [facility] Last Admin: 04/02/19 20:55 Dose: 20 mg Tramadol HCl (Ultram) 25 mg PO TID [facility] Discontinued Medications Diclofenac Sodium (Voltaren) 75 mg PO BID [facility] Last Admin: 03/31/19 10:26 Dose: Not Given Furosemide (Lasix) 20 mg IVPUSH NOW ONE Stop: 03/29/19 12:00 Last Admin: 03/29/19 12:12 Dose: 20 mg Furosemide (Lasix) 20 mg IVPUSH NOW ONE Stop: 03/29/19 16:13 Last Admin: 03/29/19 16:47 Dose: 20 mg Furosemide (Lasix) 40 mg IVPUSH DAILY [facility] Last Admin: 03/31/19 08:30 Dose: 40 mg Furosemide (Lasix) 20 mg IVPUSH NOW ONE Stop: 03/30/19 20:35 Last Admin: 03/30/19 20:45 Dose: 20 mg Furosemide (Lasix) 40 mg PO BIDDIURETIC [facility] Last Admin: 04/01/19 08:39 Dose: 40 mg Furosemide (Lasix) 20 mg PO DAILY@1600 [facility] Sodium Chloride (Normal Saline) 100 mls @ 200 mls/min IV ASDIRECTED [facility] Last Admin: 03/31/19 10:43 Dose: 200 mls/min Iopamidol (Isovue-370 (76%)) 100 ml IV ONETIME ONE Stop: 03/31/19 08:32 Last Admin: 03/31/19 10:43 Dose: 75 ml Lorazepam (Ativan) 0.5 mg PO ONETIME ONE Stop: 03/29/19 23:56 Last Admin: 03/30/19 01:36 Dose: 0.5 mg Lorazepam (Ativan) 0.5 mg PO ONETIME ONE Stop: 03/30/19 23:01 Last Admin: 03/31/19 01:37 Dose: 0.5 mg Lorazepam (Ativan) Confirm Administered Dose 0.5 mg .ROUTE .STK-MED ONE Stop: 03/31/19 01:36 Last Admin: 03/31/19 01:40 Dose: Not Given Lorazepam (Ativan) 0.5 mg PO DAILY PRN PRN Reason: agitation/restlessness Last Admin: 04/01/19 22:08 Dose: 0.5 mg Ramelteon (Rozerem) 8 mg PO BEDTIME [facility] Tramadol HCl (Ultram) 50 mg PO ONETIME ONE Stop: 03/29/19 21:46 Last Admin: 03/29/19 22:11 Dose: 50 mg Tramadol HCl (Ultram) 50 mg PO TID PRN PRN Reason: Pain (severe 7-10) Tramadol HCl (Ultram) 50 mg PO TID [facility] Last Admin: 04/03/19 08:46 Dose: Not Given - Exam Physical Findings Comments:: GENERAL: Chronically ill appearing elderly white female sitting on hospital bed eating lunch in no acute distress. HEENT: Normocephalic, atraumatic. Conjunctiva clear. Nares patent without discharge. Mucous membranes moist, posterior pharynx unremarkable. NECK: Supple, no masses. CV: Regular rate and rhythm, no murmurs, rubs, or gallops. 2+ radial pulses. PULMONARY: Normal effort, decreased air movement in the R base, faint bilateral crackles much improved from prior, no wheezes or rhonchi. ABDOMEN: Positive bowel sounds, soft, nontender, nondistended. EXTREMITIES: Trace ankle edema, no cyanosis. MUSCULOSKELETAL: Moves all extremities well. NEUROLOGICAL: No obvious deficits. DERMATOLOGIC: No rashes or suspicious lesions in exposed areas. PSYCHIATRIC: Alert and oriented x4, mildly confused, but interactive and appropriate. - Problem List Review Problem List Initiated/Reviewed/Updated: Yes - My Orders Last 24 Hours: My Active Orders 04/03/19 14:00 traMADol [Ultram] 25 mg PO TID - Plan Plan:: HPI summary: 84yoF with a hx notable for chronic severe lung disease with hypoxemia and hypercapnia for which she uses home BiPAP and oxygen 2-4lpm at home as well as a history of HFpEF was reportedly in her baseline state of health until a couple days ago when she began having increased difficulty breathing from baseline. endorses that she hasn't been taking her baseline furosemide every day. He has also noticed more difficulties with her chronic lower extremity pain for which she recently had a spinal cord stimulator placed. Notable ED findings and course: - Initially required nonrebreather mask for oxygenation, later decreased to 5lpm via nasal cannula - CBC/CMP/troponin/UA unremarkable except BNP 730 - CXR with moderate fluid overload - Furosemide 20mg IV given Hospital course: No evidence of infectious etiology, but obtained procalcitonin to assist in the future if condition deteriorates. Worsening respiratory status likely due to nonadherence to diuretic regimen in the setting of very poor baseline respiratory status. Overall status improved in the first 24hrs, with 1.5kg weight loss and -500cc I/O balance. Overnight on 03/29, patient noted to be very restless, intermittently confused, and often complaining of nerve pain in her bilateral lower extremities, and on the morning of 03/30, it was determined by that spinal cord stimulator battery had , likely contributing to complaints of nerve pain. He reported that she has had her "night and day confused for a long time" and is quite restless and confused during the night at home at baseline. On 03/31, ongoing significant oxygen desaturation with transfers, so CT chest obtained and negative for PE, but with R lower lobe collapse since prior 2016 comparison study. Desaturations with transfers are noted to be without any respiratory symptoms, so query if this is actually what has been her baseline lately. Ongoing improvement now to baseline oxygenation status. Patient/ both again emphasized lack of desire for escalated care. She has been accepted for admission to [facility] in [place], [place], but due to availability of needed oxygen supplies, are requesting admission on 04/04/19. Hospitalization problems and plan: # Acute on chronic hypoxic respiratory failure: Baseline O2 requirement 2-4lpm in addition to BiPAP. # Chronic hypercapnia: Baseline CO2 38-40. # Acute on chronic heart failure with preserved ejection fraction: 09/18/17 echo with EF 65% and evidence of diastolic dysfunction. # Chronic obstructive lung disease: 2016 PFTs with air trapping. # R hemidiaphragm paralysis # RLL collapse: Unsure of timecourse. # ROGER - Continue oxygen at 2lpm while awake and 4lpm with BiPap while sleeping - Continue stable fluid control regimen of furosemide 40/20mg po BID - Continue Yupelri and montelukast - Monitor daily weight - Plan for outpatient echo # Cognitive impairment: Previous documentation of MCI, without recent evaluation. # Sleep-wake cycle disturbance: Longstanding per . - Continue orientation and encouragement of being up during the day - Continue Rozeram qHS for delirium prevention and assistance with sleep- wake cycling # Chronic deconditioning: Evaluation by physical therapy and psychiatric social worker supervisor completed 03/31/19. - Plan for SNF placement at [facility], as above Chronic, stable conditions: # HTN:Continue losartan 100mg, amlodipine 5mg, [id number] BID. #Hepatic steatosis # Transaminitis, AST predominant: At baseline. # Constipation: Continue Senna-docusate prn. # Thrombocytopenia:At baseline. # HLD: Continue [id number]. 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 #OA /Lumbar degenerative disc disease /Chronic pain: Continue diclofenac 75mg BID, Tylenol 1000mg prn.Followed by pain management withrecentspinal cord stimulator placement. On 04/02/19, tramadol regimen changed to 25mg (from 50mg) TID per request of patient/ to see if adequately controls pain. # RLS:Continue gabapentin 600mg qHS. Poor control previously on Lyrica. # Depression: Controlled and stable. Continue mirtazapine 15mg, citalopram 20mg. # Prevention: Continue ASA 81mg. Hospitalization details: # FEN: No IVF. Electrolytes normal. Low sodium diet. # PPX: Enoxaparin for DVT ppx. # Code status: DNR/DNI status, declines ICU interventions. # Emergency contact: , who was updated at bedside. # Disposition: Continue inpatient status due to delay in acceptance for admission to [facility] in [place], [place], while obtaining needed oxygen supplies. Plan for morning discharge ton 04/04/19.
[2019-04-03] MEDS: Furosemide 20 MG Tab PO SCH (15:56)
[2019-04-03] MEDS: Simvastatin 20 MG Tab PO SCH (21:09)
[2019-04-03] MEDS: Citalopram 20 MG Tab PO SCH (21:09)
[2019-04-03] MEDS: Aspirin 81 MG Tab.EC PO SCH (21:09)
[2019-04-03] MEDS: Mirtazapine 15 MG Tab PO SCH (21:09)
[2019-04-03] MEDS: Gabapentin 300 MG Cap PO SCH (21:10)
[2019-04-04] MEDS ORDERED: traMADol 50 MG Tab PO ONE (02:30)
[2019-04-04 07:45] LABS: ANION GAP 6.6 mmol/L (5-15)
[2019-04-04] MEDS: Omeprazole 20 MG Cap.CR PO SCH (07:58)
[2019-04-04] MEDS: Losartan 50 MG Tab PO SCH (09:21)
[2019-04-04] MEDS: Metoprolol Tartrate 50 MG Tab PO SCH (09:22)
[2019-04-04] MEDS: Furosemide 40 MG Tab PO SCH (09:22)
[2019-04-04] MEDS: Enoxaparin 40 MG/0.4 ML Syringe SUBCUT SCH (09:22)
[2019-04-04] MEDS: amLODIPine 5 MG Tab PO SCH (09:23)
[2019-04-04 09:24] VITALS: BP 122/60
[2019-04-04] MEDS: Diclofenac Sodium 50 MG Tab.EC PO SCH (09:24)
[2019-04-04] MEDS: REVEFENACIN 175 MCG/3 ML INH SCH (09:28)
[2019-04-04] MEDS ORDERED: traMADol 50 MG Tab PO SCH (10:00)
--- NOTE | 2019-04-04 10:25 | PCM.DCSUM1 ---
Discharge Summary - Hospital Course Diagnosis: Stroke: No - Discharge Data Discharge Date: 04/04/19 Discharge Disposition: DC/Tfer to SNF 03 Condition: Fair - Referral to Home Health Primary Care Physician: Luz Rizzo MD - Patient Summary/Data Consults: Consultations 03/30/19 10:22 Consult to Case Management/Human Resources District Manager [CONS] Routine 03/31/19 07:00 PT Evaluation and Treatment [CONS] Routine - Patient Instructions Diet: Low Sodium Activity: As Tolerated Driving: Do Not Drive Showering/Bathing: May Shower Notify Provider of: Fever Other/Special Instructions: --Important she wear BiPap while sleeping even during day if she sleeps. --Her tramadol dosage is 50mg PO TID NOE. --Pain clinic may have to come on site to adjust nerve stimulator settings, however settings ~5-10 is likely what she requires - Discharge Plan *PRESCRIPTION DRUG MONITORING PROGRAM REVIEWED*: Not Applicable *COPY OF PRESCRIPTION DRUG MONITORING REPORT IN PATIENT TO: Not Applicable Prescriptions/Med Rec: Furosemide [Lasix] 20 mg PO DAILY@1600 #30 tablet Furosemide [Lasix] 40 mg PO DAILY #30 tablet Ramelteon [Rozerem] 8 mg PO BEDTIME #30 tablet Home Medications: Home Meds Aspirin [Adult Low Dose Aspirin EC] 81 mg PO BEDTIME 07/05/15 [History] Citalopram [Celexa] 20 mg PO BEDTIME 07/09/15 [History] Multivit-Min/Iron/Folic/Lutein [Centrum Silver Women Tablet] 1 each PO DAILY [History] Simvastatin 20 mg PO BEDTIME 03/23/16 [History] Omeprazole 20 mg PO ACBREAKFAST 06/22/17 [History] Acetaminophen [Tylenol Extra Strength] 1,000 mg PO Q4H PRN 09/17/17 [History] Diclofenac Sodium [Voltaren] 75 mg PO BID 09/17/17 [History] Metoprolol Tartrate 50 mg PO BID 09/17/17 [History] Sennosides/Docusate Sodium [Senna-Docusate Sodium Tablet] 2 tab PO DAILY PRN [History] Losartan [Cozaar] 100 mg PO DAILY 10/27/18 [History] Mirtazapine 15 mg PO BEDTIME 10/27/18 [History] Gabapentin [Neurontin] 600 mg PO BEDTIME #30 tab 12/03/18 [Rx] Albuterol Sulfate [Albuterol Sulfate Hfa] 2 puff INH Q4H PRN 03/29/19 [History] Revefenacin [Yupelri] 3 ml INH DAILY 03/29/19 [History] Tiotropium [place] [Spiriva Respimat] 2 puff INH DAILY 03/29/19 [History] amLODIPine [Norvasc] 5 mg PO DAILY 03/29/19 [History] Furosemide [Lasix] 20 mg PO DAILY@1600 #30 tablet 04/04/19 [Rx] Furosemide [Lasix] 40 mg PO DAILY #30 tablet 04/04/19 [Rx] Ramelteon [Rozerem] 8 mg PO BEDTIME #30 tablet 04/04/19 [Rx] traMADol [Ultram] 25 mg PO TID #0 tablet 04/04/19 [Rx] - Discharge Summary/Plan Comment DC Time >30 min.: Yes Discharge Summary/Plan Comment: Final diagnosis --Acute on chronic hypoxic respiratory failure: Baseline O2 requirement 2-4lpm in addition to BiPAP. --Chronic hypercapnia: Baseline CO2 38-40. --Acute on chronic heart failure with preserved ejection fraction: 09/18/17 echo with EF 65% and evidence of diastolic dysfunction. --Chronic obstructive lung disease: 2016 PFTs with air trapping. --R hemidiaphragm paralysis --RLL collapse: Suspect chronic, Unsure of time-course. --Cognitive impairment: Previous documentation of MCI, without recent evaluation. --ROGER - Continue oxygen at 2lpm while awake and 4lpm with BiPap while sleeping - Continue stable fluid control regimen of furosemide 40/20mg po BID - Continue Yupelri and montelukast - Plan for outpatient echo --Sleep-wake cycle disturbance: Longstanding per . - Continue orientation and encouragement of being up during the day - Continue Rozeram qHS for delirium prevention and assistance with sleep- wake cycling --Chronic deconditioning, PT/OT at [facility] Chronic, stable conditions: --HTN:Continue losartan 100mg, amlodipine 5mg, [id number] BID. --Hepatic steatosis --Transaminitis, AST predominant: At baseline. --Constipation: Continue Senna-docusate prn. --Thrombocytopenia:At baseline. --HLD: [id number]. 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 --OA /Lumbar degenerative disc disease /Chronic pain: Continue diclofenac 75mg BID, Tylenol 1000mg prn.Followed by pain management withrecentspinal -- cord stimulator placement. On 04/02/19, failed tramadol reductin trial, keep at 50mt TID --RLS:Continue gabapentin 600mg qHS. Poor control previously on Lyrica. --Depression: Controlled and stable. Continue mirtazapine 15mg, citalopram 20mg. --CVD Prevention: ASA 81mg. History Summary: Mrs Castanon was [facility] worsening shortness of breath from her baseline. She has a history of chronic severe lung disease with hypoxemia and hypercapnia for which she uses home BiPAP and oxygen 2-4lpm at home as well as a history of HFpEF was reportedly in her baseline state of health until a couple days prior to admission when she began having increased difficulty breathing from baseline. Ronan endorsed that she hasn't been taking her baseline furosemide every day. He has also noticed more difficulties with her chronic lower extremity pain for which she recently had a spinal cord stimulator placed. Notable ED findings and course included Initially required nonrebreather mask for oxygenation, later decreased to 5lpm via nasal cannula, CBC/CMP/troponin/UA unremarkable except BNP 730, CXR with moderate fluid overload in which she was given Furosemide 20mg IV. Hospital course: No evidence of infectious etiology, but obtained procalcitonin to assist in the future if condition deteriorates, pro-calcitonin eventually returned a few days later as 0.17 lightly above normal parameters however non-concerning. Was felt that she had exacerbation and worsening of her respiratory status likely due to nonadherence to diuretic regimen in the setting of very poor baseline respiratory status, (discussion with her Ronan she has a long history of nonadherence to her BiPAP during the daytime when sleeping. Overall status improved in the first 24hrs, with 1.5kg weight loss and -500cc I/O balance. Overnight on 03/29, patient noted to be very restless, intermittently confused, and often complaining of nerve pain in her bilateral lower extremities, and on the morning of 11/28, it was determined by that spinal cord stimulator battery had , likely contributing to complaints of nerve pain. He reported that she has had her "night and day confused for a long time" and is quite restless and confused during the night at home at baseline. On 03/31, ongoing significant oxygen desaturation with transfers, so CT chest obtained and negative for PE, but with R lower lobe collapse since prior 2016 comparison study. Desaturations with transfers are noted to be without any respiratory symptoms, so query if this is actually what has been her baseline lately. Ongoing improvement now to baseline oxygenation status. Patient/ both again emphasized lack of desire for escalated care. Tramadol was decreased by 2 % however she did not tolerate this. For DVT prophylaxis she was given low molecular weight heparin. Medications upon discharge See MAR Disposition Discharged for [facility] admission to [facility] in [place]. Her spouse is demanding that he takes her by private vehicle. Recommendations at follow-up --outpatient echo --Monitor BiPAP adherence (even during the day if naps), strict adherence at night --Periodic monitor CO2 levels --Pain clinic may have on-site visit for neurostimulator settings, recommend settings ~5-10 for now. --BNP, BMP in one week - General Info Functional Status: Reports: Tolerating Diet, Urinating, Incentive Spirometry. Denies: Pain Controlled, Ambulating - Review of Systems General: Reports: Weakness, Malaise, Other (She is reporting generalized increase in pain overnight ) HEENT: Reports: No Symptoms Pulmonary: Reports: Shortness of Breath. Denies: Cough, Sputum, Wheezing Cardiovascular: Denies: Edema Gastrointestinal: Denies: Constipation Musculoskeletal: Reports: Leg Pain Skin: Denies: Dryness Neurological: Reports: Pre-Existing Deficit, Tremors, Difficulty Walking. Denies: Confusion Psychiatric: Reports: Mood Lability. Denies: Confusion, Agitation - Patient Data Vitals - Most Recent: Last Vital Signs Temp 97.2 F 04/04/19 06:18 Pulse 64 04/04/19 09:22 Resp 20 04/04/19 06:18 BP 122/60 04/04/19 09:23 Pulse Ox 96 04/04/19 06:18 Weight - Most Recent: 155 lb 3 oz I&O - Last 24 hours: Intake & Output 04/03/19 04/04/19 04/04/19 22:59 06:59 14:59 Intake Total 450 350 Output Total 1550 150 Balance -1100 200 Lab Results - Last 24 hrs: Laboratory Results - last 24 hr 04/02/19 04/03/19 04/04/19 Range/Units 07:05 16:50 07:05 WBC 4.09 L (5.00-10.00) 10^3/uL RBC 4.07 (3.80-5.50) 10^6/uL Hgb 12.4 (12.0-16.0) g/dL Hct 40.3 (37.0-47.0) % MCV 99.0 H D (82.0-92.0) fL MCH 30.5 (27.0-31.0) pg MCHC 30.8 L (32.0-36.0) g/dL RDW 13.5 (11.5-14.5) % Plt Count 143 L (150-400) 10^3/uL MPV 9.1 (7.4-10.4) fL Immature Gran % (Auto) 3.4 (0.0-5.0) % Neut % (Auto) 55.5 (50.0-70.0) % Lymph % (Auto) 26.4 (20.0-40.0) % [place] % (Auto) 13.0 H (2.0-8.0) % Eos % (Auto) 1.5 (1.0-3.0) % Baso % (Auto) 0.2 (0.0-1.0) % Immature Gran # (Auto) 0.14 (0.00-0.50) 10^3/uL Neut # (Auto) 2.27 L (2.50-7.00) 10^3/uL Lymph # (Auto) 1.08 (1.00-4.00) 10^3/uL [place] # (Auto) 0.53 (0.10-0.80) 10^3/uL Eos # (Auto) 0.06 L (0.10-0.30) 10^3/uL Baso # (Auto) 0.01 (0.00-0.10) 10^3/uL Sodium (136-145) mmol/L Potassium (3.3-5.3) mmol/L Chloride (98-115) mmol/L Carbon Dioxide (21.0-32.0) mmol/L Anion Gap (5-15) mmol/L BUN (6-25) mg/dL Creatinine (0.51-1.17) mg/dL Est Cr Clr Drug Dosing mL/min Estimated GFR (MDRD) mL/min Glucose (75 - 99) mg/dL Calcium (8.7-10.3) mg/dL Total Bilirubin (0.2-1.0) mg/dL AST (15-37) U/L ALT (12-78) U/L Alkaline Phosphatase (46-116) IU/L Total Protein (6.4-8.2) g/dL Albumin (3.00-4.80) g/dL Procalcitonin 0.17 H (<0.10) ng/mL Specimen Type . Urine Color Light yellow (YELLOW) Urine Appearance Clear (CLEAR) Urine pH 8.5 (5.0-9.0) Ur Specific [place] 1.015 (1.005-1.030) Urine Protein Negative (NEGATIVE) mg/dL Urine Glucose (UA) Negative (NEGATIVE) mg/dL Urine Ketones Negative (NEGATIVE) mg/dL Urine Occult Blood Small H (NEGATIVE) Urine Nitrite Negative (NEGATIVE) Urine Bilirubin Negative (NEGATIVE) Urine Urobilinogen 0.2 (0.2-1.0) E.U./dL Ur Leukocyte Esterase Large H (NEGATIVE) Urine RBC 5-10 H (0-5) /HPF Urine WBC 20-30 H (0-5) /HPF Urine Bacteria Occasional (NONE TO FEW) /HPF 04/04/19 Range/Units 07:05 WBC (5.00-10.00) 10^3/uL RBC (3.80-5.50) 10^6/uL Hgb (12.0-16.0) g/dL Hct (37.0-47.0) % MCV (82.0-92.0) fL MCH (27.0-31.0) pg MCHC (32.0-36.0) g/dL RDW (11.5-14.5) % Plt Count (150-400) 10^3/uL MPV (7.4-10.4) fL Immature Gran % (Auto) (0.0-5.0) % Neut % (Auto) (50.0-70.0) % Lymph % (Auto) (20.0-40.0) % [place] % (Auto) (2.0-8.0) % Eos % (Auto) (1.0-3.0) % Baso % (Auto) (0.0-1.0) % Immature Gran # (Auto) (0.00-0.50) 10^3/uL Neut # (Auto) (2.50-7.00) 10^3/uL Lymph # (Auto) (1.00-4.00) 10^3/uL [place] # (Auto) (0.10-0.80) 10^3/uL Eos # (Auto) (0.10-0.30) 10^3/uL Baso # (Auto) (0.00-0.10) 10^3/uL Sodium 145 (136-145) mmol/L Potassium 3.9 (3.3-5.3) mmol/L Chloride 94 L (98-115) mmol/L Carbon Dioxide 48.3 H (21.0-32.0) mmol/L Anion Gap 6.6 (5-15) mmol/L BUN 27 H (6-25) mg/dL Creatinine 0.98 (0.51-1.17) mg/dL Est Cr Clr Drug Dosing 31.79 mL/min Estimated GFR (MDRD) 54 mL/min Glucose 95 (75 - 99) mg/dL Calcium 9.6 (8.7-10.3) mg/dL Total Bilirubin 0.4 (0.2-1.0) mg/dL AST 98 H (15-37) U/L ALT 47 (12-78) U/L Alkaline Phosphatase 89 (46-116) IU/L Total Protein 8.2 (6.4-8.2) g/dL Albumin 3.05 (3.00-4.80) g/dL Procalcitonin (<0.10) ng/mL Specimen Type Urine Color (YELLOW) Urine Appearance (CLEAR) Urine pH (5.0-9.0) Ur Specific [place] (1.005-1.030) Urine Protein (NEGATIVE) mg/dL Urine Glucose (UA) (NEGATIVE) mg/dL Urine Ketones (NEGATIVE) mg/dL Urine Occult Blood (NEGATIVE) Urine Nitrite (NEGATIVE) Urine Bilirubin (NEGATIVE) Urine Urobilinogen (0.2-1.0) E.U./dL Ur Leukocyte Esterase (NEGATIVE) Urine RBC (0-5) /HPF Urine WBC (0-5) /HPF Urine Bacteria (NONE TO FEW) /HPF Med Orders - Current: Current Medications Acetaminophen (Tylenol Extra Strength) 1,000 mg PO Q4H PRN PRN Reason: Pain Last Admin: 04/03/19 22:02 Dose: 1,000 mg Amlodipine Besylate (Norvasc) 5 mg PO DAILY [facility] Last Admin: 04/04/19 09:23 Dose: 5 mg Aspirin (Halfprin) 81 mg PO BEDTIME [facility] Last Admin: 04/03/19 21:09 Dose: 81 mg Citalopram Hydrobromide (Celexa) 20 mg PO BEDTIME [facility] Last Admin: 04/03/19 21:09 Dose: 20 mg Diclofenac Sodium (Voltaren) 50 mg PO BID [facility] Last Admin: 04/04/19 09:24 Dose: 50 mg Enoxaparin Sodium (Lovenox) 40 mg SUBCUT Q24H [facility] Last Admin: 04/04/19 09:22 Dose: 40 mg Furosemide (Lasix) 40 mg PO DAILY [facility] Last Admin: 04/04/19 09:22 Dose: 40 mg Furosemide (Lasix) 20 mg PO DAILY@1600 [facility] Last Admin: 04/03/19 15:56 Dose: 20 mg Gabapentin (Neurontin) 600 mg PO BEDTIME [facility] Last Admin: 04/03/19 21:10 Dose: 600 mg Losartan Potassium (Cozaar) 100 mg PO DAILY [facility] Last Admin: 04/04/19 09:21 Dose: 100 mg Metoprolol Tartrate (Lopressor) 50 mg PO BID [facility] Last Admin: 04/04/19 09:22 Dose: 50 mg Mirtazapine (Remeron) 15 mg PO BEDTIME [facility] Last Admin: 04/03/19 21:09 Dose: 15 mg Yupelri 175 Mcg/3 Ml ([place] Med) 0 ml INH DAILY [facility] Last Admin: 04/04/19 09:28 Dose: 3 ml Non-Formulary Medication (Tiotropium [place] [Spiriva Respimat]) 2 puff INH DAILY [facility] Omeprazole (Omeprazole) 20 mg PO ACBREAKFAST [facility] Last Admin: 04/04/19 07:58 Dose: 20 mg Ramelteon (Rozerem) 8 mg PO BEDTIME NOE Last Admin: 04/03/19 21:10 Dose: 8 mg Senna/Docusate Sodium (Senna Plus) 2 tab PO DAILY PRN PRN Reason: Constipation Simvastatin (Zocor) 20 mg PO BEDTIME NOE Last Admin: 04/03/19 21:09 Dose: 20 mg Tramadol HCl (Ultram) 50 mg PO TID NOE Discontinued Medications Diclofenac Sodium (Voltaren) 75 mg PO BID NOE Last Admin: 03/31/19 10:26 Dose: Not Given Furosemide (Lasix) 20 mg IVPUSH NOW ONE Stop: 03/29/19 12:00 Last Admin: 03/29/19 12:12 Dose: 20 mg Furosemide (Lasix) 20 mg IVPUSH NOW ONE Stop: 03/29/19 16:13 Last Admin: 03/29/19 16:47 Dose: 20 mg Furosemide (Lasix) 40 mg IVPUSH DAILY NOE Last Admin: 03/31/19 08:30 Dose: 40 mg Furosemide (Lasix) 20 mg IVPUSH NOW ONE Stop: 03/30/19 20:35 Last Admin: 03/30/19 20:45 Dose: 20 mg Furosemide (Lasix) 40 mg PO BIDDIURETIC NOE Last Admin: 04/01/19 08:39 Dose: 40 mg Furosemide (Lasix) 20 mg PO DAILY@1600 NOE Sodium Chloride (Normal Saline) 100 mls @ 200 mls/min IV ASDIRECTED NOE Last Admin: 03/31/19 10:43 Dose: 200 mls/min Iopamidol (Isovue-370 (76%)) 100 ml IV ONETIME ONE Stop: 03/31/19 08:32 Last Admin: 03/31/19 10:43 Dose: 75 ml Lorazepam (Ativan) 0.5 mg PO ONETIME ONE Stop: 03/29/19 23:56 Last Admin: 03/30/19 01:36 Dose: 0.5 mg Lorazepam (Ativan) 0.5 mg PO ONETIME ONE Stop: 03/30/19 23:01 Last Admin: 03/31/19 01:37 Dose: 0.5 mg Lorazepam (Ativan) Confirm Administered Dose 0.5 mg .ROUTE .STK-MED ONE Stop: 03/31/19 01:36 Last Admin: 03/31/19 01:40 Dose: Not Given Lorazepam (Ativan) 0.5 mg PO DAILY PRN PRN Reason: agitation/restlessness Last Admin: 04/01/19 22:08 Dose: 0.5 mg Ramelteon (Rozerem) 8 mg PO BEDTIME [facility] Tramadol HCl (Ultram) 50 mg PO ONETIME ONE Stop: 03/29/19 21:46 Last Admin: 03/29/19 22:11 Dose: 50 mg Tramadol HCl (Ultram) 50 mg PO TID PRN PRN Reason: Pain (severe 7-10) Tramadol HCl (Ultram) 50 mg PO TID [facility] Last Admin: 04/03/19 08:46 Dose: Not Given Tramadol HCl (Ultram) 25 mg PO TID [facility] Last Admin: 04/03/19 21:08 Dose: 25 mg Tramadol HCl (Ultram) 25 mg PO ONETIME ONE Stop: 04/04/19 02:31 Last Admin: 04/04/19 02:56 Dose: 25 mg - Exam Quality Assessment: Reports: Supplemental Oxygen General: Reports: Alert, Oriented, No Acute Distress Lungs: Reports: Decreased Breath Sounds, Crackles (Slight crackles bilateral bases). Denies: Wheezing Cardiovascular: Reports: Regular Rate, Regular Rhythm GI/Abdominal Exam: Soft, Non-Tender (Female) Exam: Deferred Back Exam: Denies: CVA Tenderness (L), CVA Tenderness (R)
[2019-04-04] MEDS: traMADol 50 MG Tab PO SCH (14:24)
[2019-04-04 17:26] VITALS: PULSE 84
== END 2019-04-04 11:05 | DRG 291 ==
LOC: KA.ED 10:30 → KA.MS 12:45 → UNDODISIN 04-04 11:05
PROVIDERS: ADMIT Physician Assistant Surgical; ATTEND Family Medicine
DX: I11.0 Hypertensive heart disease with heart failure (principal); I50.9 Heart failure, unspecified; J96.21 Acute and chronic respiratory failure with hypoxia; G91.9 Hydrocephalus, unspecified; G25.81 Restless legs syndrome; Q04.6 Congenital cerebral cysts; J98.19 Other pulmonary collapse; M54.30 Sciatica, unspecified side; Z66 Do not resuscitate; I50.33 Acute on chronic diastolic (congestive) heart failure; G83.9 Paralytic syndrome, unspecified; G47.33 Obstructive sleep apnea (adult) (pediatric); G47.20 Circadian rhythm sleep disorder, unspecified type; G31.84 Mild cognitive impairment of uncertain or unknown etiology; K76.0 Fatty (change of) liver, not elsewhere classified; K59.00 Constipation, unspecified; D69.6 Thrombocytopenia, unspecified; E78.5 Hyperlipidemia, unspecified; M51.36 Other intervertebral disc degeneration, lumbar region; G89.29 Other chronic pain; F32.9 Major depressive disorder, single episode, unspecified; R74.8 Abnormal levels of other serum enzymes; J44.9 Chronic obstructive pulmonary disease, unspecified; M54.5 Low back pain; G47.00 Insomnia, unspecified; H54.7 Unspecified visual loss; K59.09 Other constipation; G62.9 Polyneuropathy, unspecified; Z98.49 Cataract extraction status, unspecified eye; Z88.2 Allergy status to sulfonamides; Z87.01 Personal history of pneumonia (recurrent); Z90.89 Acquired absence of other organs; Z90.49 Acquired absence of other specified parts of digestive tract; Z79.82 Long term (current) use of aspirin; Z79.899 Other long term (current) drug therapy; Z99.81 Dependence on supplemental oxygen; Z90.710 Acquired absence of both cervix and uterus; Z96.82 Presence of neurostimulator
CPT/HCPCS: 36415; 51702; 71045; 71260; 80048; 80053; 81001; 83605; 83880; 84145; 84443; 84484; 85025; 85379; 85610; 85730; 93005; 94640; 96374; 97162-GP; 99285-25; A9270-GY; J1650; J1940; J7050; Q9967

== ENCOUNTER 2020-09-26 22:30 | Inpatient (IN) | payer MEDICARE, OTHER ==
[2020-09-26] MEDS ORDERED: Sodium Chloride 0.9% 10 ML Syringe FLUSH PRN (23:01)
--- NOTE | 2020-09-26 23:14 | EDM.PDOC ---
ED HPI GENERAL MEDICAL PROBLEM - General Chief Complaint: General Stated Complaint: GENERALIZED WEAKNESS Time Seen by Provider: 09/26/20 23:00 Source of Information: Reports: Patient, Family History Limitations: Reports: No Limitations - History of Present Illness INITIAL COMMENTS - FREE TEXT/NARRATIVE: 85 YO WF PRESENTS TO ER WITH COMPLAINTS OF GENERALIZED WEAKNESS AND MILD SH ORTNESS OF BREATH WHICH HAS BECOME PROGRESSIVE OVER THE LAST WEEK. AND PT REPORTS SHE HAS BEEN HAVING A LOT MORE DIFFICULTY GETTING AROUND DUE TO WEAKNESS AND NEUROPATHY. PT TAKING TRAMADOL, HYDROCODONE, GABAPENTIN AND AMITRIPTYLINE FOR HER DISCOMFORT. PT WAS RECENTLY DIAGNOSED WITH LEUKEMIA AND HAS BEEN TAKING A NEW MEDICATION OVER THE LAST COUPLE OF MONTHS. PT DENIES CHEST PAIN, NO NAUSEA/VOMITING, NO FEVER/CHILLS, NO COUGH/CONGESTION. PT WITH A FEW LOOSE STOOLS TODAY. PT ALERT AND ORIENTED X 3, NO SLURRED SPEECH, NO FACIAL DROOP, NO MOTOR WEAKNESS OR ATAXIA. Onset: Gradual Duration: Week(s): (1), Getting Worse Location: Reports: Generalized Quality: Reports: Ache Severity: Moderate Improves with: Reports: None Worsens with: Reports: Movement Associated Symptoms: Reports: No Other Symptoms, Malaise, Shortness of Breath, Weakness. Denies: Confusion, Chest Pain, Cough, Fever/Chills, Headaches, Nausea/Vomiting, Seizure - Related Data Allergies Allergy/AdvReac Type Severity Reaction Status Date / Time Sulfa (Sulfonamide Allergy Nausea and Verified 03/29/19 11:22 Antibiotics) Vomiting Home Meds: Home Meds Aspirin [Adult Low Dose Aspirin EC] 81 mg PO BEDTIME 07/05/15 [History] Citalopram [Celexa] 20 mg PO BEDTIME 07/09/15 [History] Multivit-Min/Iron/Folic/Lutein [Centrum Silver Women Tablet] 1 each PO DAILY 03/23/16 [History] Simvastatin 20 mg PO BEDTIME 03/23/16 [History] Omeprazole 20 mg PO ACBREAKFAST 06/22/17 [History] Acetaminophen [Tylenol Extra Strength] 1,000 mg PO Q4H PRN 09/17/17 [History] Diclofenac Sodium [Voltaren] 75 mg PO BID 09/17/17 [History] Metoprolol Tartrate 50 mg PO BID 09/17/17 [History] Sennosides/Docusate Sodium [Senna-Docusate Sodium Tablet] 2 tab PO DAILY PRN 09/17/17 [History] Losartan [Cozaar] 100 mg PO DAILY 10/27/18 [History] Mirtazapine 15 mg PO BEDTIME 10/27/18 [History] Gabapentin [Neurontin] 600 mg PO BEDTIME #30 tab 12/03/18 [Rx] Albuterol Sulfate [Albuterol Sulfate Hfa] 2 puff INH Q4H PRN 03/29/19 [History] Revefenacin [Yupelri] 3 ml INH DAILY 03/29/19 [History] Tiotropium [place] [Spiriva Respimat] 2 puff INH DAILY 03/29/19 [History] amLODIPine [Norvasc] 5 mg PO DAILY 03/29/19 [History] Furosemide [Lasix] 20 mg PO DAILY@1600 #30 tablet 04/04/19 [Rx] Furosemide [Lasix] 40 mg PO DAILY #30 tablet 04/04/19 [Rx] Ramelteon [Rozerem] 8 mg PO BEDTIME #30 tablet 04/04/19 [Rx] traMADol [Ultram] 25 mg PO TID #0 tablet 04/04/19 [Rx] Past Medical History HEENT History: Reports: Impaired Vision Cardiovascular History: Reports: Hypertension Respiratory History: Reports: Other (See Below) Other Respiratory History: has had pneumonia once before. 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, Peripheral Other Neuro History: restless legs Psychiatric History: Reports: Depression Other Psychiatric History: progressing memory issues Endocrine/Metabolic History: Reports: None Hematologic History: Reports: None Immunologic History: Reports: None Oncologic (Cancer) History: Reports: None Dermatologic History: Reports: Other (See Below) Other Dermatologic History: rocessa - Infectious Disease History Infectious Disease History: Reports: Chicken Pox, Measles - Past Surgical History Head Surgeries/Procedures: Reports: None HEENT Surgical History: Reports: Cataract Surgery, Tonsillectomy Cardiovascular Surgical History: Reports: None GI Surgical History: Reports: Appendectomy, Cholecystectomy, Colonoscopy Female Surgical History: Reports: Hysterectomy Musculoskeletal Surgical History: Reports: Other (See Below) Other Musculoskeletal Surgeries/Procedures:: injection to the back Social & Family History - Family History Family Medical History: No Pertinent Family History Endocrine/Metabolic: Reports: Diabetes, type II Oncologic: Reports: Esophageal Other Oncologic Family History: father of cancer - Caffeine Use Caffeine Use: Reports: Coffee ED ROS GENERAL - Review of Systems Review Of Systems: See Below Constitutional: Reports: Malaise, Weakness, Fatigue HEENT: Reports: No Symptoms Respiratory: Reports: Shortness of Breath Cardiovascular: Reports: No Symptoms Endocrine: Reports: No Symptoms GI/Abdominal: Reports: No Symptoms : Reports: No Symptoms Musculoskeletal: Reports: No Symptoms Skin: Reports: No Symptoms Neurological: Reports: No Symptoms, Weakness. Denies: Headache, Trouble Speaking, Difficulty Walking, Change in Speech Psychiatric: Reports: No Symptoms Hematologic/Lymphatic: Reports: No Symptoms Immunologic: Reports: No Symptoms ED EXAM, GENERAL - Physical Exam Exam: See Below Exam Limited By: No Limitations General Appearance: Alert, WD/WN, No Apparent Distress Eye Exam: Bilateral Eye: EOMI, PERRL Throat/Mouth: Normal Inspection, Normal Lips, Normal Teeth, Normal Gums, Normal Oropharynx, Normal Voice, No Airway Compromise Head: Atraumatic, Normocephalic Neck: Normal Inspection, Supple, Non-Tender, Full Range of Motion Respiratory/Chest: No Respiratory Distress, Lungs Clear, Normal Breath Sounds, No Accessory Muscle Use, Chest Non-Tender Cardiovascular: Normal Peripheral Pulses, Regular Rate, Rhythm, No Edema, No Gallop, No JVD, No Murmur, No Rub GI/Abdominal: Normal Bowel Sounds, Soft, Non-Tender, No Organomegaly, No Distention, No Abnormal Bruit, No Mass Back Exam: Normal Inspection, Full Range of Motion, NT Extremities: Normal Inspection, Normal Range of Motion, Non-Tender, Normal Capillary Refill, No Pedal Edema Neurological: Alert, Oriented, CN II-XII Intact, Normal Cognition, Normal Reflexes, No Motor/Sensory Deficits Psychiatric: Normal Mood, Flat Affect Skin Exam: Warm, Dry, Intact, Normal Color, No Rash Lymphatic: No Adenopathy #1 Interpretation EKG Date: 09/26/20 Time: 23:13 Rhythm: NSR Rate (Beats/Min): 58 [place]: Normal P-Wave: Present QRS: Normal ST-T: Normal QT: Normal Course - Vital Signs Last Recorded V/S: Last Vital Signs Temp 97.4 F 09/26/20 22:42 Pulse 61 09/26/20 22:42 Resp 20 09/26/20 22:42 BP 146/66 H 09/26/20 22:42 Pulse Ox 95 09/26/20 22:42 - Orders/Labs/Meds Orders: Active Orders 24 hr Category Date Time Status Patient Status Manage Transfer [TRANSFER] Routine ADT 09/27/20 00:04 Active Patient Status [ADT] Routine ADT 09/27/20 00:06 Active Cardiac Monitoring [RC] . DIRECTED Care 09/26/20 23:01 Active EKG Documentation Completion [RC] ASDIRECTED Care 09/26/20 23:02 Active Oxygen Therapy [RC] PRN Care 09/27/20 00:06 Active Peripheral IV Care [RC] . DIRECTED Care 09/26/20 23:02 Active Up With Assistance [RC] ASDIRECTED Care 09/27/20 00:05 Active VTE/DVT Education [RC] PER UNIT ROUTINE Care 09/27/20 00:06 Active Vital Signs [RC] Q4H Care 09/27/20 00:06 Active PT Evaluation and Treatment [CONS] Routine Cons 09/27/20 00:05 Active Heart Healthy Diet [DIET] Diet 09/27/20 Breakfast Active Chest 1V Frontal [CR] Stat Exams 09/26/20 23:01 Ordered CORONAVIRUS COVID-19 RAPID [MOLEC] Stat Lab 09/27/20 00:08 Ordered TYPE AND SCREEN [BBK] Stat Lab 09/26/20 23:01 Ordered UA W/MICROSCOPIC [URIN] Stat Lab 09/26/20 23:40 Results Acetaminophen/HYDROcodone [Tenstrike 325-10 MG] Med 09/27/20 00:08 Ordered 1 tab PO Q6H PRN Gabapentin [Neurontin] Med 09/27/20 09:00 Ordered 600 mg PO TID Sodium Chloride 0.9% [Saline Flush] Med 09/26/20 23:01 Active 10 ml FLUSH Q8HR PRN Sodium Chloride 0.9% [Saline Flush] Med 09/27/20 00:05 Active 10 ml FLUSH Q8HR PRN traMADol [Ultram] Med 09/27/20 00:09 Ordered 50 mg PO Q6H PRN Peripheral IV Insertion Adult [OM.PC] Routine Oth 09/26/20 23:01 Ordered Saline Lock Insert [OM.PC] Routine Oth 09/27/20 00:05 Ordered Resuscitation Status Routine Resus Stat 09/27/20 00:05 Ordered EKG 12 Lead [EK] Stat Ther 09/26/20 23:01 Ordered Medication Orders Sodium Chloride (Sodium Chloride 0.9% 10 Ml Syringe) 10 ml FLUSH Q8HR PRN PRN Reason: keep vein open Sodium Chloride (Sodium Chloride 0.9% 10 Ml Syringe) 10 ml FLUSH Q8HR PRN PRN Reason: keep vein open Labs: Laboratory Tests 09/26/20 09/26/20 09/26/20 Range/Units 23:22 23:22 23:40 WBC 3.20 L (5.00-10.00) 10^3/uL RBC 3.42 L (3.80-5.50) 10^6/uL Hgb 7.8 L D (12.0-16.0) g/dL Hct 28.5 L (37.0-47.0) % MCV 83.3 D (82.0-92.0) fL MCH 22.8 L (27.0-31.0) pg MCHC 27.4 L (32.0-36.0) g/dL RDW 15.4 H (11.5-14.5) % Plt Count 87 L (150-400) 10^3/uL MPV 9.7 (7.4-10.4) fL Immature Gran % (Auto) 1.9 (0.0-5.0) % Neut % (Auto) 51.2 (50.0-70.0) % Lymph % (Auto) 33.8 (20.0-40.0) % [place] % (Auto) 12.2 H (2.0-8.0) % Eos % (Auto) 0.9 L (1.0-3.0) % Baso % (Auto) 0.0 (0.0-1.0) % Neut # (Auto) 1.64 L (2.50-7.00) 10^3/uL Lymph # (Auto) 1.08 (1.00-4.00) 10^3/uL [place] # (Auto) 0.39 (0.10-0.80) 10^3/uL Eos # (Auto) 0.03 L (0.10-0.30) 10^3/uL Baso # (Auto) 0.00 (0.00-0.10) 10^3/uL Immature Gran # (Auto) 0.06 (0.00-0.50) 10^3/uL Sodium 140 (136-145) mmol/L Potassium 4.3 (3.5-5.1) mmol/L Chloride 99 (98-107) mmol/L Carbon Dioxide 39.3 H (21.0-32.0) mmol/L Anion Gap 6.0 (5-15) mmol/L BUN 19 H (7-18) mg/dL Creatinine 0.84 (0.51-1.17) mg/dL Est Cr Clr Drug Dosing 40.13 mL/min Estimated GFR (MDRD) > 60 mL/min Glucose 102 (70-140) mg/dL Calcium 8.8 (8.7-10.3) mg/dL Total Bilirubin 0.5 (0.2-1.0) mg/dL AST 37 (15-37) U/L ALT 45 (14-63) U/L Alkaline Phosphatase 74 (46-116) U/L Troponin I High Sens 8.600 (0-51.000) pg/mL B-Natriuretic Peptide 222 H (0-100) pg/mL Total Protein 7.6 (6.4-8.2) g/dL Albumin 3.40 (3.40-5.00) g/dL Urine Color Yellow (YELLOW) Urine Appearance Clear (CLEAR) Urine pH 6.0 (5.0-9.0) Ur Specific [place] 1.025 (1.005-1.030) Urine Protein Trace H (NEGATIVE) mg/dL Urine Glucose (UA) Negative (NEGATIVE) mg/dL Urine Ketones Negative (NEGATIVE) mg/dL Urine Occult Blood Negative (NEGATIVE) Urine Nitrite Positive H (NEGATIVE) Urine Bilirubin Negative (NEGATIVE) Urine Urobilinogen 0.2 (0.2-1.0) E.U./dL Ur Leukocyte Esterase Negative (NEGATIVE) Meds: Medications Generic Name Dose Route Start Last Admin Trade Name Freq PRN Reason Stop Dose Admin Sodium Chloride 10 ml 09/26/20 23:01 Sodium Chloride 0.9% 10 Ml Syringe FLUSH Q8HR PRN keep vein open Sodium Chloride 10 ml 09/27/20 00:05 Sodium Chloride 0.9% 10 Ml Syringe FLUSH Q8HR PRN keep vein open - Radiology Interpretation Free Text/Narrative:: CXR-NAD Departure - Departure Time of Disposition: 00:03 Disposition: Admitted As Inpatient 68 Condition: Poor Clinical Impression: Pancytopenia, Profound anemia, Generalized weakness - Discharge Information Forms: ED Department Discharge Sepsis Event Note (ED) - Evaluation Sepsis Screening Result: No Definite Risk - Focused Exam Vital Signs: Vital Signs Temp Pulse Resp BP Pulse Ox 09/26/20 22:42 97.4 F 61 20 146/66 H 95 - My Orders Last 24 Hours: My Active Orders 09/26/20 23:01 Cardiac Monitoring [RC] . DIRECTED Chest 1V Frontal [CR] Stat TYPE AND SCREEN [BBK] Stat Sodium Chloride 0.9% [Saline Flush] 10 ml FLUSH Q8HR PRN Peripheral IV Insertion Adult [OM.PC] Routine EKG 12 Lead [EK] Stat 09/26/20 23:02 EKG Documentation Completion [RC] ASDIRECTED Peripheral IV Care [RC] . DIRECTED 09/26/20 23:40 UA W/MICROSCOPIC [URIN] Stat 09/27/20 00:04 Patient Status Manage Transfer [TRANSFER] Routine 09/27/20 00:05 Up With Assistance [RC] ASDIRECTED PT Evaluation and Treatment [CONS] Routine Sodium Chloride 0.9% [Saline Flush] 10 ml FLUSH Q8HR PRN Saline Lock Insert [OM.PC] Routine Resuscitation Status Routine 09/27/20 00:06 Patient Status [ADT] Routine Oxygen Therapy [RC] PRN VTE/DVT Education [RC] PER UNIT ROUTINE Vital Signs [RC] Q4H 09/27/20 00:08 CORONAVIRUS COVID-19 RAPID [MOLEC] Stat Acetaminophen/HYDROcodone [Tenstrike 325-10 MG] 1 tab PO Q6H PRN 09/27/20 00:09 traMADol [Ultram] 50 mg PO Q6H PRN 09/27/20 Breakfast Heart Healthy Diet [DIET] 09/27/20 09:00 Gabapentin [Neurontin] 600 mg PO TID - Assessment/Plan Last 24 Hours: My Active Orders 09/26/20 23:01 Cardiac Monitoring [RC] . DIRECTED Chest 1V Frontal [CR] Stat TYPE AND SCREEN [BBK] Stat Sodium Chloride 0.9% [Saline Flush] 10 ml FLUSH Q8HR PRN Peripheral IV Insertion Adult [OM.PC] Routine EKG 12 Lead [EK] Stat 09/26/20 23:02 EKG Documentation Completion [RC] ASDIRECTED Peripheral IV Care [RC] . DIRECTED 09/26/20 23:40 UA W/MICROSCOPIC [URIN] Stat 09/27/20 00:04 Patient Status Manage Transfer [TRANSFER] Routine 09/27/20 00:05 Up With Assistance [RC] ASDIRECTED PT Evaluation and Treatment [CONS] Routine Sodium Chloride 0.9% [Saline Flush] 10 ml FLUSH Q8HR PRN Saline Lock Insert [OM.PC] Routine Resuscitation Status Routine 09/27/20 00:06 Patient Status [ADT] Routine Oxygen Therapy [RC] PRN VTE/DVT Education [RC] PER UNIT ROUTINE Vital Signs [RC] Q4H 09/27/20 00:08 CORONAVIRUS COVID-19 RAPID [MOLEC] Stat Acetaminophen/HYDROcodone [Tenstrike 325-10 MG] 1 tab PO Q6H PRN 09/27/20 00:09 traMADol [Ultram] 50 mg PO Q6H PRN 09/27/20 Breakfast Heart Healthy Diet [DIET] 09/27/20 09:00 Gabapentin [Neurontin] 600 mg PO TID Assessment:: 1. PANCYTOPENIA 2. PROFOUND ANEMIA 3. GENERALIZED WEAKNESS Plan: 1. ADMIT TO MEDICINE- DISCUSSED WITH EVAN EARL WHO ACCEPTED ADMISSION 2. TRANSFUSE 1 UNIT PRBC 3. SUPPORTIVE CARE 4. PT CONSULT
[2020-09-26 23:48] LABS: CHLORIDE,CL 99 mmol/L (98-107); SODIUM,NA 140 mmol/L (136-145)
[2020-09-27] MEDS ORDERED: Sodium Chloride 0.9% 10 ML Syringe FLUSH PRN (00:05)
[2020-09-27] MEDS ORDERED: Lidocaine 2% 100 MG/5 ML Syringe IVPUSH PRN (02:30)
[2020-09-27] MEDS ORDERED: EPINEPHrine 1:10,000 1 MG/10 ML Syringe IVPUSH PRN (02:30)
[2020-09-27] MEDS ORDERED: Atropine 0.1 MG/ML 10 ML Syringe IVPUSH PRN (02:30)
[2020-09-27] MEDS ORDERED: Nitroglycerin 0.4 MG Tab.SL SL PRN (02:30)
[2020-09-27] MEDS: traMADol 50 MG Tab PO PRN (02:31)
[2020-09-27] MEDS: Acetaminophen/HYDROcodone 325-10 MG Tab PO PRN (03:21)
--- NOTE | 2020-09-27 07:38 | CR ---
[id number] RAD/RAD Chest Portable EXAM: PORTABLE CHEST INDICATION: SOB COMPARISON: March 29, 2019. DISCUSSION: Cardiomegaly without evidence of pulmonary edema. Stable moderate elevation of the right hemidiaphragm and 16 mm right base granuloma. Chronic healed right rib fractures. Surgical clips right upper quadrant of the abdomen, vertebroplasty at the thoracolumbar junction, midthoracic spine stimulator leads. Mild volume loss or scarring in the lung bases with no acute infiltrates identified. IMPRESSION: 1. No acute findings. Migel Lozano MD 09/27/20 0737 Thank you for allowing us to participate in the care of your patient.
--- NOTE | 2020-09-27 08:51 | PCM.HP.2 ---
H&P History of Present Illness - General Date of Service: 09/27/20 Admit Problem/Dx: Admission Diagnosis/Problem Admission Diagnosis/Problem Pancytopenia Source of Information: Patient, Family, RN Bilateral Foot Pain Score (Numeric/FACES): 7 - Related Data Allergies/Adverse Reactions: Allergies Allergy/AdvReac Type Severity Reaction Status Date / Time Sulfa (Sulfonamide Allergy Nausea and Verified 10/03/20 02:05 Antibiotics) Vomiting Home Medications: Home Meds Multivit-Min/Iron/Folic/Lutein [Centrum Silver Women Tablet] 1 each PO DAILY 03/23/16 [History] Simvastatin 20 mg PO BEDTIME 03/23/16 [History] Acetaminophen [Tylenol Extra Strength] 1,000 mg PO Q4H PRN 09/17/17 [History] Diclofenac Sodium [Voltaren] 75 mg PO BID 09/17/17 [History] Metoprolol Tartrate 50 mg PO BID 09/17/17 [History] Losartan [Cozaar] 100 mg PO DAILY 10/27/18 [History] Albuterol Sulfate [Albuterol Sulfate Hfa] 2 puff INH Q4H PRN 03/29/19 [History] Revefenacin [Yupelri] 3 ml INH DAILY 03/29/19 [History] amLODIPine [Norvasc] 5 mg PO DAILY 03/29/19 [History] Acalabrutinib [Calquence] 100 mg PO BID 09/27/20 [History] DULoxetine HCl [Duloxetine HCl] 30 mg PO BID 09/27/20 [History] Donepezil HCl 10 mg PO DAILY 09/27/20 [History] Famotidine 20 mg PO DAILY 09/27/20 [History] Furosemide [Lasix] 20 mg PO DAILY 09/27/20 [History] Gabapentin [Neurontin] 600 mg PO TID cap 09/27/20 [Rx] Hydrocodone/Acetaminophen [Vicodin Hp 10-300 mg Tablet] 5 - 325 mg PO Q6HR PRN 09/27/20 [History] Loperamide [Imodium] 4 mg PO Q6H PRN #30 cap 09/27/20 [Rx] Nortriptyline HCl [Pamelor] 30 mg PO DAILY 09/27/20 [History] Prochlorperazine [Compazine] 5 mg PO Q6H PRN 10/03/20 [History] traMADol [Ultram] 50 mg PO Q6H 10/03/20 [History] Past Medical History HEENT History: Reports: Impaired Vision Cardiovascular History: Reports: Heart Failure, Hypertension Respiratory History: Reports: COPD, Other (See Below) Other Respiratory History: has had pneumonia once before. left lung partially collapsed Gastrointestinal History: Reports: Cholelithiasis, Chronic Constipation, Other (See Below) Other Gastrointestinal History: "had holes in the intestine and had surgery to patch the hole back in the Genitourinary History: Reports: None [employer]ING [employer] History: Reports: Musculoskeletal History: Reports: Arthritis, Other (See Below) Other Musculoskeletal History: sciatica Neurological History: Reports: Neuropathy, Peripheral Other Neuro History: restless legs Psychiatric History: Reports: Depression Other Psychiatric History: progressing memory issues Endocrine/Metabolic History: Reports: None Hematologic History: Reports: None Immunologic History: Reports: None Oncologic (Cancer) History: Reports: Leukemia Other Oncologic History: Recently diagnosed in 08/2020 Dermatologic History: Reports: Other (See Below) Other Dermatologic History: rocessa - Infectious Disease History Infectious Disease History: Reports: Chicken Pox, Measles - Past Surgical History Head Surgeries/Procedures: Reports: None HEENT Surgical History: Reports: Cataract Surgery, Tonsillectomy Cardiovascular Surgical History: Reports: None Respiratory Surgical History: Reports: None GI Surgical History: Reports: Appendectomy, Cholecystectomy, Colonoscopy Female Surgical History: Reports: Hysterectomy Musculoskeletal Surgical History: Reports: Other (See Below) Other Musculoskeletal Surgeries/Procedures:: injection to the back Social & Family History - Family History Family Medical History: No Pertinent Family History Endocrine/Metabolic: Reports: Diabetes, type II Oncologic: Reports: Esophageal Other Oncologic Family History: father of cancer - Tobacco Use Tobacco Use Status *Q: Former Tobacco User Years of Tobacco use: 10 Packs/Tins Daily: 1 Used Tobacco, but Quit: Yes Month/Year Tobacco Last Used: 06/1979 - Caffeine Use Caffeine Use: Reports: Coffee Other Caffeine Use: 2-3 cups/day - Recreational Drug Use Recreational Drug Use: No H&P Review of Systems - Review of Systems: Review Of Systems: See Below General: Reports: Weakness, Fatigue. Denies: Fever HEENT: Reports: Sore Throat ("scratchy") Pulmonary: Reports: Shortness of Breath (at baseline). Denies: Wheezing, Cough Cardiovascular: Reports: Dyspnea on Exertion (at baseline ) Gastrointestinal: Reports: Diarrhea (since starting cancer medication) Genitourinary: Reports: Dysuria, Frequency. Denies: Hematuria, Flank Pain Musculoskeletal: Reports: Back Pain (chronic ) Skin: Reports: No Symptoms Psychiatric: Reports: Confusion (at baseline) Neurological: Reports: Confusion (at baseline) Hematologic/Lymphatic: Reports: Anemia (known pancytopenia) Immunologic: Reports: No Symptoms Exam - Exam Exam: See Below - Vital Signs Vital Signs: Last Vital Signs Temp 96.7 F L 09/27/20 05:25 Pulse 62 09/27/20 05:25 Resp 20 09/27/20 05:25 BP 137/60 09/27/20 05:25 Pulse Ox 97 09/27/20 05:25 Weight: 138 lb 3 oz - Exam Quality Assessment: Supplemental Oxygen. No: Urinary Catheter General: Alert, Oriented, Cooperative. No: Mild Distress HEENT: Conjunctiva Clear, Mucosa Moist & Colony Neck: Supple, Trachea Midline Lungs: Clear to Auscultation, Normal Respiratory Effort, Decreased Breath Sounds. No: Crackles, Rhonchi, Wheezing Cardiovascular: Regular Rate, Regular Rhythm GI/Abdominal Exam: Normal Bowel Sounds, Soft, Non-Tender, No Distention (Female) Exam: Deferred Rectal (Female) Exam: Deferred Back Exam: Normal Inspection, Full Range of Motion Extremities: Normal Inspection, Normal Range of Motion, Non-Tender, No Pedal Edema, Normal Capillary Refill Peripheral Pulses: 2+: Dorsalis Pedis (L), Dorsalis Pedis (R) Skin: Warm, Dry, Intact Neuro Extensive - Mental Status: Alert, Oriented x3, Normal Mood/Affect, Normal Cognition Psychiatric: Alert, Normal Affect, Normal Mood - Patient Data Lab Results Last 24 hrs: Laboratory Results - last 24 hr 09/26/20 09/26/20 09/26/20 Range/Units 23:22 23:22 23:22 WBC 3.20 L (5.00-10.00) 10^3/uL RBC 3.42 L (3.80-5.50) 10^6/uL Hgb 7.8 L D (12.0-16.0) g/dL Hct 28.5 L (37.0-47.0) % MCV 83.3 D (82.0-92.0) fL MCH 22.8 L (27.0-31.0) pg MCHC 27.4 L (32.0-36.0) g/dL RDW 15.4 H (11.5-14.5) % Plt Count 87 L (150-400) 10^3/uL MPV 9.7 (7.4-10.4) fL Immature Gran % (Auto) 1.9 (0.0-5.0) % Neut % (Auto) 51.2 (50.0-70.0) % Lymph % (Auto) 33.8 (20.0-40.0) % Mora % (Auto) 12.2 H (2.0-8.0) % Eos % (Auto) 0.9 L (1.0-3.0) % Baso % (Auto) 0.0 (0.0-1.0) % Neut # (Auto) 1.64 L (2.50-7.00) 10^3/uL Lymph # (Auto) 1.08 (1.00-4.00) 10^3/uL Mora # (Auto) 0.39 (0.10-0.80) 10^3/uL Eos # (Auto) 0.03 L (0.10-0.30) 10^3/uL Baso # (Auto) 0.00 (0.00-0.10) 10^3/uL Immature Gran # (Auto) 0.06 (0.00-0.50) 10^3/uL Sodium 140 (136-145) mmol/L Potassium 4.3 (3.5-5.1) mmol/L Chloride 99 (98-107) mmol/L Carbon Dioxide 39.3 H (21.0-32.0) mmol/L Anion Gap 6.0 (5-15) mmol/L BUN 19 H (7-18) mg/dL Creatinine 0.84 (0.51-1.17) mg/dL Est Cr Clr Drug Dosing 40.13 mL/min Estimated GFR (MDRD) > 60 mL/min Glucose 102 (70-140) mg/dL Calcium 8.8 (8.7-10.3) mg/dL Total Bilirubin 0.5 (0.2-1.0) mg/dL AST 37 (15-37) U/L ALT 45 (14-63) U/L Alkaline Phosphatase 74 (46-116) U/L Troponin I High Sens 8.600 (0-51.000) pg/mL B-Natriuretic Peptide 222 H (0-100) pg/mL Total Protein 7.6 (6.4-8.2) g/dL Albumin 3.40 (3.40-5.00) g/dL Specimen Type Urine Color (YELLOW) Urine Appearance (CLEAR) Urine pH (5.0-9.0) Ur Specific Hen[place] (1.005-1.030) Urine Protein (NEGATIVE) mg/dL Urine Glucose (UA) (NEGATIVE) mg/dL Urine Ketones (NEGATIVE) mg/dL Urine Occult Blood (NEGATIVE) Urine Nitrite (NEGATIVE) Urine Bilirubin (NEGATIVE) Urine Urobilinogen (0.2-1.0) E.U./dL Ur Leukocyte Esterase (NEGATIVE) Urine RBC (0-5) /HPF Urine WBC (0-5) /HPF Ur Epithelial Cells /LPF Urine Bacteria (NONE TO FEW) /HPF SARS CoV-2 RNA Rapid RADHA (NEGATIVE) Blood Type A POSITIVE Gel Antibody Screen Negative Crossmatch See Detail 09/26/20 09/27/20 Range/Units 23:40 00:10 WBC (5.00-10.00) 10^3/uL RBC (3.80-5.50) 10^6/uL Hgb (12.0-16.0) g/dL Hct (37.0-47.0) % MCV (82.0-92.0) fL MCH (27.0-31.0) pg MCHC (32.0-36.0) g/dL RDW (11.5-14.5) % Plt Count (150-400) 10^3/uL MPV (7.4-10.4) fL Immature Gran % (Auto) (0.0-5.0) % Neut % (Auto) (50.0-70.0) % Lymph % (Auto) (20.0-40.0) % Mora % (Auto) (2.0-8.0) % Eos % (Auto) (1.0-3.0) % Baso % (Auto) (0.0-1.0) % Neut # (Auto) (2.50-7.00) 10^3/uL Lymph # (Auto) (1.00-4.00) 10^3/uL Mora # (Auto) (0.10-0.80) 10^3/uL Eos # (Auto) (0.10-0.30) 10^3/uL Baso # (Auto) (0.00-0.10) 10^3/uL Immature Gran # (Auto) (0.00-0.50) 10^3/uL Sodium (136-145) mmol/L Potassium (3.5-5.1) mmol/L Chloride (98-107) mmol/L Carbon Dioxide (21.0-32.0) mmol/L Anion Gap (5-15) mmol/L BUN (7-18) mg/dL Creatinine (0.51-1.17) mg/dL Est Cr Clr Drug Dosing mL/min Estimated GFR (MDRD) mL/min Glucose (70-140) mg/dL Calcium (8.7-10.3) mg/dL Total Bilirubin (0.2-1.0) mg/dL AST (15-37) U/L ALT (14-63) U/L Alkaline Phosphatase (46-116) U/L Troponin I High Sens (0-51.000) pg/mL B-Natriuretic Peptide (0-100) pg/mL Total Protein (6.4-8.2) g/dL Albumin (3.40-5.00) g/dL Specimen Type Urinvoid Urine Color Yellow (YELLOW) Urine Appearance Clear (CLEAR) Urine pH 6.0 (5.0-9.0) Ur Specific Henning 1.025 (1.005-1.030) Urine Protein Trace H (NEGATIVE) mg/dL Urine Glucose (UA) Negative (NEGATIVE) mg/dL Urine Ketones Negative (NEGATIVE) mg/dL Urine Occult Blood Negative (NEGATIVE) Urine Nitrite Positive H (NEGATIVE) Urine Bilirubin Negative (NEGATIVE) Urine Urobilinogen 0.2 (0.2-1.0) E.U./dL Ur Leukocyte Esterase Negative (NEGATIVE) Urine RBC 0-5 (0-5) /HPF Urine WBC 10-20 H (0-5) /HPF Ur Epithelial Cells Few /LPF Urine Bacteria Many H (NONE TO FEW) /HPF SARS CoV-2 RNA Rapid RADHA Negative (NEGATIVE) Blood Type Gel Antibody Screen Crossmatch Result Diagrams: 09/27/20 09:25 09/26/20 23:22 Sepsis Event Note - Evaluation Sepsis Screening Result: No Definite Risk - Focused Exam Vital Signs: Vital Signs Temp Pulse Resp BP Pulse Ox Pulse Ox 09/27/20 05:25 96.7 F L 62 20 137/60 97 09/27/20 02:15 97.3 F 64 18 127/53 L 100 09/27/20 00:06 95 09/26/20 22:42 97.4 F 61 20 146/66 H 95 Problem List Initiated/Reviewed/Updated: Yes Orders Last 24hrs: Active Orders 24 hr Category Date Time Status Patient Status [ADT] Routine ADT 09/27/20 00:06 Active Oxygen Therapy [RC] PRN Care 09/27/20 00:06 Active Peripheral IV Care [RC] , Care 09/26/20 23:02 Active Telemetry Monitoring [Cardiac Monitoring] [RC] 07,11,15 Care 09/27/20 07:37 Active ,19,23,03 Up With Assistance [RC] ASDIRECTED Care 09/27/20 00:05 Active VTE/DVT Education [RC] PER UNIT ROUTINE Care 09/27/20 00:06 Active Vital Signs [RC] 03,07,11,15,19,23 Care 09/27/20 00:06 Active Consult to Case Management/Screw Down [CONS] Cons 09/27/20 04:55 Active Routine PT Evaluation and Treatment [CONS] Routine Cons 09/27/20 00:05 Active Heart Healthy Diet [DIET] Diet 09/27/20 Breakfast Active CULTURE URINE [RM] Stat Lab 09/27/20 01:06 Ordered RED BLOOD CELLS LP [BBK] Stat Lab 09/26/20 23:22 Results TYPE AND SCREEN [BBK] Stat Lab 09/26/20 23:22 Results Acetaminophen/HYDROcodone [[place] 325-10 MG] Med 09/27/20 00:08 Active 1 tab PO Q6H PRN Atropine [Atropine 0.1 MG/ML] Med 09/27/20 02:30 Active See Dose Instructions IVPUSH ASDIRECTED PRN EPINEPHrine [EPINEPHrine 1:10,000] Med 09/27/20 02:30 Active 1 mg IVPUSH ASDIRECTED PRN Gabapentin [Neurontin] Med 09/27/20 09:00 Active 600 mg PO TID Lidocaine 2% [Xylocaine 2%] Med 09/27/20 02:30 Active See Dose Instructions IVPUSH ASDIRECTED PRN Nitroglycerin [Nitrostat] Med 09/27/20 02:30 Active 0.4 mg SL ASDIRECTED PRN traMADol [Ultram] Med 09/27/20 00:09 Active 50 mg PO Q6H PRN Peripheral IV Insertion Adult [OM.PC] Routine Oth 09/26/20 23:01 Ordered Saline Lock Insert [OM.PC] Routine Oth 09/27/20 00:05 Ordered Resuscitation Status Routine Resus Stat 09/27/20 00:05 Ordered EKG 12 Lead [EK] Stat Ther 09/26/20 23:01 Stop Req Medication Orders Hydrocodone Bitart/Acetaminophen (Acetaminophen/Hydrocodone 325-10 Mg Tab) 1 tab PO Q6H PRN PRN Reason: Pain Last Admin: 09/27/20 03:21 Dose: 1 tab Documented by: JOYCELYN Atropine Sulfate (Atropine 0.1 Mg/Ml 10 Ml Syringe) 0 mg IVPUSH ASDIRECTED PRN PRN Reason: Heart. Epinephrine HCl (Epinephrine 1:10,000 1 Mg/10 Ml Syringe) 1 mg IVPUSH ASDIRECTED PRN PRN Reason: Heart. Gabapentin (Gabapentin 100 Mg Cap) 600 mg PO TID NOE Lidocaine HCl (Lidocaine 2% 100 Mg/5 Ml Syringe) 0 mg IVPUSH ASDIRECTED PRN PRN Reason: Heart. Nitroglycerin (Nitroglycerin 0.4 Mg Tab.Sl) 0.4 mg SL ASDIRECTED PRN PRN Reason: Heart. Tramadol HCl (Tramadol 50 Mg Tab) 50 mg PO Q6H PRN PRN Reason: Pain Last Admin: 09/27/20 02:31 Dose: 50 mg Documented by: JOYCELYN Assessment/Plan Comment:: HPI summary: Courtney is an 85y F patient who presented to the ER last night around 2229 for complaints of increased weakness and SOB over the past week. Patient has known significant peripheral neuropathy and has had recent decline in her physical condition. 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 She is followed by Dr Norman and was started on Acalabrutinib 100 mg daily in early Aug, 2020. ED course: CXR with no acute process. EKG sinus bradycardia, HR 58. Vitals stable. UA indicated +ve nitrites, WBC 10-20 and many bacteria. Patient complained of increased weakness over the past week and increased shortness of breath. Patient reportedly had a few loose stools, started a new medication due to recent "leukemia" diagnosis per and patient. WBC 3.20, Hgb 7.8, Plt 87. On-call [facility] provider, Vandana Rebollar APRN, MECCA agreed to admit patient overnight. Hospital course: 09/27/20 - Patient reports feeling stronger this morning and would like to go miracle e. One unit of packed red cells was ordered per ER provider which was typed and cross-matched to patient. The blood was not given. CBC to be repeated this morning at [facility]: WBC 2.9, Hgb 8.3, Plt 91. Patient has known pancytopenia and small lymphocytic lymphoma with cell counts trending downward over recent months. Shortness of breath near patient's baseline per patient and she uses supplemental O2 at 2L at home along with BIPAP while sleeping due to central apnea. UA suggestive of UTI, patient complaining of urinary burning and increased frequency. Will start patient on a course of macrobid due to reports of significant diarrhea with last course of augmentin in April,. Kitty landa has reportedly had diarrhea since starting acalabrutinib in early August per Dr Norman. Holding home senna and starting calmoseptine to be applied PRN for perianal irritation. Patient case discussed with Dr Rizzo who indicated that patient is at her baseline due to known pancytopenia and chronic conditions. Will plan to discharge patient home later today. Hospitalization problems and plan: # Pancytopenia - Labs at recent baseline for patient given treatment with Acalabrutinib per Dr Norman for small lymphocytic lymphoma. # Anemia - 1 unit PRBC's were ordered by ER provider and this was cross-matched. Blood was not given (Hgb of 7.8); recheck CBC this am. # Weakness - PT eval and tx ordered per ER. # UTI - UA indicated positive nitrites, many bacteria and WBC of 10-20k. - Course of macrobid started in hospital this morning, urine culture pending. Chronic, stable conditions: # Hypertension # HFpEF (last echo 09/18/17 - EF of 65%) # Chronic respiratory failure with hypoxia and hypercapnia # Chronic obstructive pulmonary disease, unspecified COPD type - on home O2 2L at baseline # ROGER (obstructive sleep apnea) # Granulomatous lung disease # Pulmonary nodules # Hyperlipidemia # Depression # Dementia without behavioral disturbance; progressive # Hydrocephalus, adult # Pancytopenia # Small lymphocytic lymphoma # Macrocytosis # Chronic left-sided low back pain with left-sided sciatica # Severe peripheral neuropathy # Restless legs syndrome # GERD # Chronic constipation # Hepatic steatosis # Transaminitis # Diverticulosis # Mixed stress and urge urinary incontinence # Generalized osteoarthritis of multiple sites # Age related osteoporosis # Chronic pain syndrome # S/P insertion of spinal cord stimulator # Physical deconditioning # Frequent falls Hospitalization details: # FEN: Heart healthy diet. Electrolytes WNL. No IV fluids # PPX: None. # Code status: Changed status to DNR per POL on file at [facility] # Emergency contact: , Efrain [phone] - updated on patient's status per myself # Disposition: Likely discharge later today as patient's chronic conditions are at baseline per Dr Rizzo; no criteria to continue hospitalization. Will treat UTI with oral medications as outpatient.
[2020-09-27] MEDS: Gabapentin 100 MG Cap PO SCH (10:08)
[2020-09-27] MEDS ORDERED: Acetaminophen 500 MG Tab PO PRN (10:33)
[2020-09-27] MEDS ORDERED: Acetaminophen/HYDROcodone 325-5 MG Tab PO PRN (10:56)
[2020-09-27] MEDS ORDERED: Albuterol 8 GM Inhaler INH PRN (10:58)
[2020-09-27] MEDS: Furosemide 20 MG Tab PO SCH (11:20)
[2020-09-27] MEDS: Famotidine 20 MG Tab PO SCH (11:20)
[2020-09-27] MEDS: DULoxetine 30 MG Cap PO SCH (11:20)
[2020-09-27] MEDS: Diclofenac Sodium 75 MG Tab.EC PO SCH (11:21)
[2020-09-27] MEDS: Losartan 50 MG Tab PO SCH (11:21)
[2020-09-27] MEDS: Multivitamins with Minerals/Iron/Folic Acid/Lycopene Tab PO SCH (11:21)
[2020-09-27 11:22] VITALS: BP 149/79
[2020-09-27] MEDS: Menthol/Zinc Oxide Ointment 113 GM Tube TOP PRN (11:22)
[2020-09-27 11:26] VITALS: PULSE 86
[2020-09-27] MEDS: amLODIPine 5 MG Tab PO SCH (11:26)
[2020-09-27] MEDS: Metoprolol Tartrate 50 MG Tab PO SCH (11:26)
--- NOTE | 2020-09-27 11:32 | PCM.DCSUM1 ---
Discharge Summary - Hospital Course Free Text/Narrative:: Date of admission: 09/27/20 Date of discharge: 09/27/20 Admission diagnoses: # Pancytopenia # Anemia # Weakness Discharge diagnoses: # Hypertension # HFpEF (last echo 09/18/17 - EF of 65%) # Chronic respiratory failure with hypoxia and hypercapnia # Chronic obstructive pulmonary disease, unspecified COPD type - on home O2 2L at baseline # ROGER (obstructive sleep apnea) # Granulomatous lung disease # Pulmonary nodules # Hyperlipidemia # Depression # Dementia without behavioral disturbance; progressive # Hydrocephalus, adult # Pancytopenia # Small lymphocytic lymphoma # Macrocytosis # Chronic left-sided low back pain with left-sided sciatica # Severe peripheral neuropathy # Restless legs syndrome # GERD # Chronic constipation # Hepatic steatosis # Transaminitis # Diverticulosis # Mixed stress and urge urinary incontinence # acute cystitis without hematuria - course of macrobid PO BID x 5 days provided # Generalized osteoarthritis of multiple sites # Age related osteoporosis # Chronic pain syndrome # S/P insertion of spinal cord stimulator # Physical deconditioning # Frequent falls Hospital course: HPI summary: Courtney is an 85y F patient who presented to the ER last night around 2229 for complaints of increased weakness and SOB over the past week. Patient has known significant peripheral neuropathy and has had recent decline in her physical condition. 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 She is followed by Dr Norman and was started on Acalabrutinib 100 mg daily in early Aug, 2020. ED course: CXR with no acute process. EKG sinus bradycardia, HR 58. Vitals stable. UA indicated +ve nitrites, WBC 10-20 and many bacteria. Patient complained of increased weakness over the past week and increased shortness of breath. Patient reportedly had a few loose stools, started a new medication due to recent "leukemia" diagnosis per and patient. WBC 3.20, Hgb 7.8, Plt 87. Patient was admitted under inpatient status for pancytopenia and "profound" anemia and weakness. 09/27/20 - Patient reports feeling stronger this morning and would like to go home. Blood ordered from ER was not given. CBC this morning indicated WBC of 2.9, Hgb 8.3 without intervention, Plt 91. Patient has known pancytopenia and small lymphocytic lymphoma with cell counts trending downward over the recent past. Shortness of breath near patient's baseline per patient and she uses supplemental O2 at 2L at home along with BIPAP while sleeping due to central apnea. UA suggestive of UTI, patient complaining of urinary burning and increased frequency. Will start patient on a course of macrobid due to reports of significant diarrhea with last course of augmentin in April,. Patient has reportedly had diarrhea since starting acalabrutinib per Dr Norman. Holding home senna and starting calmoseptine to be applied PRN for p erianal irritation. Loperamide PRN diarrhea. Stop aspirin due to thrombocytopenia, platelets < 100,000. Patient case discussed with Dr Rizzo who indicated that patient is at her baseline due to known pancytopenia and chronic conditions, labs stable given known pancytopenia. Patient does not meet criteria for ongoing hospitalization. Will plan to discharge patient home later today. Discharge and follow-up recommendations: - Discharge to home with continued home health already in place. Continue same home medications as prior, recommending holding senna due to diarrhea related to cancer medication. Stop aspirin due to thrombocytopenia. - New medications at discharge: Macrobid for UTI - Rx for 9 doses sent to [facility] with first dose given in hospital prior to discharge; will start loperamide for medication induced diarrhea. - Follow-up with Dr Palmira Wilkins in 10-14 days for follow-up. Patient scheduled on 10/02/20 at [facility] [place] with Dr Norman. - Discharge Data Discharge Date: 09/27/20 Discharge Disposition: Home, Self-Care 01 Condition: Fair - Referral to Home Health Primary Care Physician: Luz Rizzo MD - Patient Summary/Data Consults: Consultations 09/27/20 00:05 PT Evaluation and Treatment [CONS] Routine 09/27/20 04:55 Consult to Case Management/Baby Formula Worker [CONS] Routine - Patient Instructions Diet: Usual Diet as Tolerated - Discharge Plan *PRESCRIPTION DRUG MONITORING PROGRAM REVIEWED*: No *COPY OF PRESCRIPTION DRUG MONITORING REPORT IN PATIENT TO: No Prescriptions/Med Rec: Loperamide [Imodium] 4 mg PO Q6H PRN #30 cap PRN Reason: Diarrhea Home Medications: Home Meds Multivit-Min/Iron/Folic/Lutein [Centrum Silver Women Tablet] 1 each PO DAILY 03/23/16 [History] Simvastatin 20 mg PO BEDTIME 03/23/16 [History] Acetaminophen [Tylenol Extra Strength] 1,000 mg PO Q4H PRN 09/17/17 [History] Diclofenac Sodium [Voltaren] 75 mg PO BID 09/17/17 [History] Metoprolol Tartrate 50 mg PO BID 09/17/17 [History] Losartan [Cozaar] 100 mg PO DAILY 10/27/18 [History] Albuterol Sulfate [Albuterol Sulfate Hfa] 2 puff INH Q4H PRN 03/29/19 [History] Revefenacin [Yupelri] 3 ml INH DAILY 03/29/19 [History] amLODIPine [Norvasc] 5 mg PO DAILY 03/29/19 [History] Acalabrutinib [Calquence] 100 mg PO BID 09/27/20 [History] DULoxetine HCl [Duloxetine HCl] 30 mg PO BID 09/27/20 [History] Donepezil HCl 10 mg PO DAILY 09/27/20 [History] Famotidine 20 mg PO DAILY 09/27/20 [History] Furosemide [Lasix] 20 mg PO DAILY 09/27/20 [History] Gabapentin [Neurontin] 600 mg PO TID cap 09/27/20 [Rx] Hydrocodone/Acetaminophen [Vicodin Hp 10-300 mg Tablet] 5 - 325 mg PO Q6HR PRN 09/27/20 [History] Loperamide [Imodium] 4 mg PO Q6H PRN #30 cap 09/27/20 [Rx] Nortriptyline HCl [Pamelor] 30 mg PO DAILY 09/27/20 [History] Prochlorperazine [Compazine] 5 mg PO Q6H PRN 10/03/20 [History] traMADol [Ultram] 50 mg PO Q6H 10/03/20 [History] Oxygen Therapy Mode: Nasal Cannula (at night and with naps) Oxygen Flow Rate (L/min): 2 Referrals: Luz Rizzo MD [Primary Care Provider] - 10/09/20 1:00 pm () - Discharge Summary/Plan Comment DC Time >30 min.: Yes - Patient Data Vitals - Most Recent: Last Vital Signs Temp 97.4 F 09/27/20 11:00 Pulse 86 09/27/20 11:26 Resp 20 09/27/20 11:00 BP 149/79 H 09/27/20 11:26 Pulse Ox 96 09/27/20 11:00 Weight - Most Recent: 138 lb 3 oz I&O - Last 24 hours: Intake & Output 09/26/20 09/27/20 09/27/20 22:59 06:59 14:59 Intake Total 100 Balance 100 Lab Results - Last 24 hrs: Laboratory Results - last 24 hr 09/26/20 09/26/20 09/26/20 Range/Units 23:22 23:22 23:22 WBC 3.20 L (5.00-10.00) 10^3/uL RBC 3.42 L (3.80-5.50) 10^6/uL Hgb 7.8 L D (12.0-16.0) g/dL Hct 28.5 L (37.0-47.0) % MCV 83.3 D (82.0-92.0) fL MCH 22.8 L (27.0-31.0) pg MCHC 27.4 L (32.0-36.0) g/dL RDW 15.4 H (11.5-14.5) % Plt Count 87 L (150-400) 10^3/uL MPV 9.7 (7.4-10.4) fL Immature Gran % (Auto) 1.9 (0.0-5.0) % Neut % (Auto) 51.2 (50.0-70.0) % Lymph % (Auto) 33.8 (20.0-40.0) % [place] % (Auto) 12.2 H (2.0-8.0) % Eos % (Auto) 0.9 L (1.0-3.0) % Baso % (Auto) 0.0 (0.0-1.0) % Neut # (Auto) 1.64 L (2.50-7.00) 10^3/uL Lymph # (Auto) 1.08 (1.00-4.00) 10^3/uL [place] # (Auto) 0.39 (0.10-0.80) 10^3/uL Eos # (Auto) 0.03 L (0.10-0.30) 10^3/uL Baso # (Auto) 0.00 (0.00-0.10) 10^3/uL Immature Gran # (Auto) 0.06 (0.00-0.50) 10^3/uL Sodium 140 (136-145) mmol/L Potassium 4.3 (3.5-5.1) mmol/L Chloride 99 (98-107) mmol/L Carbon Dioxide 39.3 H (21.0-32.0) mmol/L Anion Gap 6.0 (5-15) mmol/L BUN 19 H (7-18) mg/dL Creatinine 0.84 (0.51-1.17) mg/dL Est Cr Clr Drug Dosing 40.13 mL/min Estimated GFR (MDRD) > 60 mL/min Glucose 102 (70-140) mg/dL Calcium 8.8 (8.7-10.3) mg/dL Total Bilirubin 0.5 (0.2-1.0) mg/dL AST 37 (15-37) U/L ALT 45 (14-63) U/L Alkaline Phosphatase 74 (46-116) U/L Troponin I High Sens 8.600 (0-51.000) pg/mL B-Natriuretic Peptide 222 H (0-100) pg/mL Total Protein 7.6 (6.4-8.2) g/dL Albumin 3.40 (3.40-5.00) g/dL Specimen Type Urine Color (YELLOW) Urine Appearance (CLEAR) Urine pH (5.0-9.0) Ur Specific [place] (1.005-1.030) Urine Protein (NEGATIVE) mg/dL Urine Glucose (UA) (NEGATIVE) mg/dL Urine Ketones (NEGATIVE) mg/dL Urine Occult Blood (NEGATIVE) Urine Nitrite (NEGATIVE) Urine Bilirubin (NEGATIVE) Urine Urobilinogen (0.2-1.0) E.U./dL Ur Leukocyte Esterase (NEGATIVE) Urine RBC (0-5) /HPF Urine WBC (0-5) /HPF Ur Epithelial Cells /LPF Urine Bacteria (NONE TO FEW) /HPF SARS CoV-2 RNA Rapid RADHA (NEGATIVE) Blood Type A POSITIVE Gel Antibody Screen Negative Crossmatch See Detail 09/26/20 09/27/20 Range/Units 23:40 00:10 WBC (5.00-10.00) 10^3/uL RBC (3.80-5.50) 10^6/uL Hgb (12.0-16.0) g/dL Hct (37.0-47.0) % MCV (82.0-92.0) fL MCH (27.0-31.0) pg MCHC (32.0-36.0) g/dL RDW (11.5-14.5) % Plt Count (150-400) 10^3/uL MPV (7.4-10.4) fL Immature Gran % (Auto) (0.0-5.0) % Neut % (Auto) (50.0-70.0) % Lymph % (Auto) (20.0-40.0) % [place] % (Auto) (2.0-8.0) % Eos % (Auto) (1.0-3.0) % Baso % (Auto) (0.0-1.0) % Neut # (Auto) (2.50-7.00) 10^3/uL Lymph # (Auto) (1.00-4.00) 10^3/uL [place] # (Auto) (0.10-0.80) 10^3/uL Eos # (Auto) (0.10-0.30) 10^3/uL Baso # (Auto) (0.00-0.10) 10^3/uL Immature Gran # (Auto) (0.00-0.50) 10^3/uL Sodium (136-145) mmol/L Potassium (3.5-5.1) mmol/L Chloride (98-107) mmol/L Carbon Dioxide (21.0-32.0) mmol/L Anion Gap (5-15) mmol/L BUN (7-18) mg/dL Creatinine (0.51-1.17) mg/dL Est Cr Clr Drug Dosing mL/min Estimated GFR (MDRD) mL/min Glucose (70-140) mg/dL Calcium (8.7-10.3) mg/dL Total Bilirubin (0.2-1.0) mg/dL AST (15-37) U/L ALT (14-63) U/L Alkaline Phosphatase (46-116) U/L Troponin I High Sens (0-51.000) pg/mL B-Natriuretic Peptide (0-100) pg/mL Total Protein (6.4-8.2) g/dL Albumin (3.40-5.00) g/dL Specimen Type Urincath Urine Color Yellow (YELLOW) Urine Appearance Clear (CLEAR) Urine pH 6.0 (5.0-9.0) Ur Specific [place] 1.025 (1.005-1.030) Urine Protein Trace H (NEGATIVE) mg/dL Urine Glucose (UA) Negative (NEGATIVE) mg/dL Urine Ketones Negative (NEGATIVE) mg/dL Urine Occult Blood Negative (NEGATIVE) Urine Nitrite Positive H (NEGATIVE) Urine Bilirubin Negative (NEGATIVE) Urine Urobilinogen 0.2 (0.2-1.0) E.U./dL Ur Leukocyte Esterase Negative (NEGATIVE) Urine RBC 0-5 (0-5) /HPF Urine WBC 10-20 H (0-5) /HPF Ur Epithelial Cells Few /LPF Urine Bacteria Many H (NONE TO FEW) /HPF SARS CoV-2 RNA Rapid RADHA Negative (NEGATIVE) Blood Type Gel Antibody Screen Crossmatch SHAY Results - Last 24 hrs: Microbiology 09/26/20 23:40 Urine Culture - Final Urine, Catheterized Med Orders - Current: Current Medications Acetaminophen (Acetaminophen 500 Mg Tab) 1,000 mg PO Q4H PRN PRN Reason: Pain Hydrocodone Bitart/Acetaminophen (Acetaminophen/Hydrocodone 325-5 Mg Tab) 1 tab PO Q6HR PRN PRN Reason: Pain Albuterol (Albuterol 8 Gm Inhaler) 0 gm INH Q4H PRN PRN Reason: Shortness of Breath Amlodipine Besylate (Amlodipine 5 Mg Tab) 5 mg PO DAILY [facility] Last Admin: 09/27/20 11:26 Dose: 5 mg Documented by: Atropine Sulfate (Atropine 0.1 Mg/Ml 10 Ml Syringe) 0 mg IVPUSH ASDIRECTED PRN PRN Reason: Heart. Calamine/Phenol (Menthol/Zinc Oxide Ointment 113 Gm Tube) 0 gm TOP TID PRN PRN Reason: Sore Bottom Last Admin: 09/27/20 11:22 Dose: 1 applic Documented by: Diclofenac Sodium (Diclofenac Sodium 75 Mg Tab.Ec) 75 mg PO BID [facility] Last Admin: 09/27/20 11:21 Dose: 75 mg Documented by: Duloxetine HCl (Duloxetine 30 Mg Cap) 30 mg PO BID [facility] Last Admin: 09/27/20 11:20 Dose: 30 mg Documented by: Epinephrine HCl (Epinephrine 1:10,000 1 Mg/10 Ml Syringe) 1 mg IVPUSH ASDIRECTED PRN PRN Reason: Heart. Famotidine (Famotidine 20 Mg Tab) 20 mg PO DAILY [facility] Last Admin: 09/27/20 11:20 Dose: 20 mg Documented by: Furosemide (Furosemide 20 Mg Tab) 20 mg PO DAILY [facility] Last Admin: 09/27/20 11:20 Dose: 20 mg Documented by: Gabapentin (Gabapentin 100 Mg Cap) 600 mg PO TID [facility] Last Admin: 09/27/20 10:08 Dose: 600 mg Documented by: Gabapentin (Gabapentin 300 Mg Cap) 600 mg PO TID [facility] Lidocaine HCl (Lidocaine 2% 100 Mg/5 Ml Syringe) 0 mg IVPUSH ASDIRECTED PRN PRN Reason: Heart. Losartan Potassium (Losartan 50 Mg Tab) 100 mg PO DAILY [facility] Last Admin: 09/27/20 11:21 Dose: 100 mg Documented by: Metoprolol Tartrate (Metoprolol Tartrate 50 Mg Tab) 50 mg PO BID [facility] Last Admin: 09/27/20 11:26 Dose: 50 mg Documented by: Multivitamins/Minerals (Multivitamins With Minerals/Iron/Folic Acid/Lycopene Tab) 1 tab PO DAILY [facility] Last Admin: 09/27/20 11:21 Dose: 1 tab Documented by: Nitrofurantoin Macrocrystals (Nitrofurantoin Monohydrate/Macrocrystalline 100 Mg Cap) 100 mg PO ONETIME ONE Stop: 09/27/20 11:06 Nitroglycerin (Nitroglycerin 0.4 Mg Tab.Sl) 0.4 mg SL ASDIRECTED PRN PRN Reason: Heart. Tramadol HCl (Tramadol 50 Mg Tab) 50 mg PO Q6H PRN PRN Reason: Pain Last Admin: 09/27/20 02:31 Dose: 50 mg Documented by: Discontinued Medications Hydrocodone Bitart/Acetaminophen (Acetaminophen/Hydrocodone 325-10 Mg Tab) 1 tab PO Q6H PRN PRN Reason: Pain Last Admin: 09/27/20 03:21 Dose: 1 tab Documented by: Amoxicillin/Clavulanate Potassium (Amoxicillin/Clavulanate K 500-125 Mg Tab) 1 tab PO BID [facility] Sodium Chloride (Sodium Chloride 0.9% 10 Ml Syringe) 10 ml FLUSH Q8HR PRN PRN Reason: keep vein open Sodium Chloride (Sodium Chloride 0.9% 10 Ml Syringe) 10 ml FLUSH Q8HR PRN PRN Reason: keep vein open Tramadol HCl (Tramadol 50 Mg Tab) 50 mg PO TID NOE
[2020-09-27] MEDS: Nitrofurantoin Monohydrate/Macrocrystalline 100 MG Cap PO ONE (11:45)
[2020-09-27] MEDS: Amoxicillin/Clavulanate K 500-125 MG Tab PO SCH (12:01)
[2020-09-27] MEDS: Loperamide 2 MG Cap PO PRN (12:28)
[2020-09-27] MEDS ORDERED: traMADol 50 MG Tab PO SCH (14:00)
[2020-09-27] MEDS ORDERED: Gabapentin 300 MG Cap PO SCH (14:00)
== END 2020-09-27 13:45 | disposition home or self-care (01) | DRG 809 ==
LOC: KA.ED 22:30 → KA.MS 09-27 00:04 → UNDOADMIN 09-27 00:04 → KA.MS 09-27 00:05 → UNDOADMIN 09-27 00:05 → KA.MS 09-27 02:13 → UNDODISIN 09-27 13:45
PROVIDERS: ADMIT Physician Assistant Medical; ATTEND Nurse Practitioner Family
DX: D61.818 Other pancytopenia (principal); I50.32 Chronic diastolic (congestive) heart failure; R53.1 Weakness; J96.11 Chronic respiratory failure with hypoxia; J96.12 Chronic respiratory failure with hypercapnia; G91.9 Hydrocephalus, unspecified; C85.80 Other specified types of non-Hodgkin lymphoma, unspecified site; M54.30 Sciatica, unspecified side; N30.00 Acute cystitis without hematuria; J44.9 Chronic obstructive pulmonary disease, unspecified; Z20.822 Contact with and (suspected) exposure to COVID-19; G47.33 Obstructive sleep apnea (adult) (pediatric); R91.1 Solitary pulmonary nodule; E78.5 Hyperlipidemia, unspecified; J98.4 Other disorders of lung; F03.90 Unspecified dementia, unspecified severity, without behavioral disturbance, psychotic disturbance, mood disturbance, and anxiety; F32.9 Major depressive disorder, single episode, unspecified; D75.89 Other specified diseases of blood and blood-forming organs; M54.42 Lumbago with sciatica, left side; G62.9 Polyneuropathy, unspecified; G25.81 Restless legs syndrome; K21.9 Gastro-esophageal reflux disease without esophagitis; K59.09 Other constipation; K76.0 Fatty (change of) liver, not elsewhere classified; K57.90 Diverticulosis of intestine, part unspecified, without perforation or abscess without bleeding; M19.90 Unspecified osteoarthritis, unspecified site; M81.0 Age-related osteoporosis without current pathological fracture; G89.4 Chronic pain syndrome; R53.81 Other malaise; D64.9 Anemia, unspecified; D69.6 Thrombocytopenia, unspecified; H54.7 Unspecified visual loss; I11.0 Hypertensive heart disease with heart failure; Z88.2 Allergy status to sulfonamides; Z79.899 Other long term (current) drug therapy; Z98.49 Cataract extraction status, unspecified eye; Z98.890 Other specified postprocedural states; Z90.710 Acquired absence of both cervix and uterus; Z87.891 Personal history of nicotine dependence; Z90.49 Acquired absence of other specified parts of digestive tract; Z79.82 Long term (current) use of aspirin
CPT/HCPCS: 36415; 71045; 80053; 81001; 83880; 84484; 85025; 86850; 86900; 86901; 86920; 86922; 87086; 87088; 87186; 93005; 99285-25; A9270-GY; U0002

== ENCOUNTER 2020-10-03 02:03 | Emergency (ER) | payer MEDICARE, OTHER ==
[2020-10-03] MEDS ORDERED: Albuterol/Ipratropium 3.0-0.5 MG/3 ML Neb Soln NEB ONE (02:20)
[2020-10-03 03:24] LABS: ANION GAP 3.6 mmol/L (5-15); CHLORIDE,CL 96 mmol/L (98-107); SODIUM,NA 136 mmol/L (136-145)
--- NOTE | 2020-10-03 03:42 | EDM.PDOC ---
ED HPI GENERAL MEDICAL PROBLEM - General Chief Complaint: Respiratory Problem Stated Complaint: sob Time Seen by Provider: 10/03/20 03:23 Source of Information: Reports: Patient, Significant Other History Limitations: Reports: No Limitations - History of Present Illness INITIAL COMMENTS - FREE TEXT/NARRATIVE: Patient presents with dyspnea. No fever. No asthma or COPD. She has a problem with her right diaphragm. She uses oxygen at home at 1.5-2 liters but can go up if needed. She was hospitalized with this and a UTI last week. She was found to have leukemia about 6 weeks ago and started a medication for it. The ear flap binder is using it intermittently now with her. says she has been getting worse the last couple of weeks. She still gets around with a walker and dresses herself and showers. 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 Treatments, Oxygen - Related Data Allergies Allergy/AdvReac Type Severity Reaction Status Date / Time Sulfa (Sulfonamide Allergy Nausea and Verified 10/03/20 02:05 Antibiotics) Vomiting Home Meds: Home Meds Multivit-Min/Iron/Folic/Lutein [Centrum Silver Women Tablet] 1 each PO DAILY 03/23/16 [History] Simvastatin 20 mg PO BEDTIME 03/23/16 [History] Acetaminophen [Tylenol Extra Strength] 1,000 mg PO Q4H PRN 09/17/17 [History] Diclofenac Sodium [Voltaren] 75 mg PO BID 09/17/17 [History] Metoprolol Tartrate 50 mg PO BID 09/17/17 [History] Losartan [Cozaar] 100 mg PO DAILY 10/27/18 [History] Albuterol Sulfate [Albuterol Sulfate Hfa] 2 puff INH Q4H PRN 03/29/19 [History] Revefenacin [Yupelri] 3 ml INH DAILY 03/29/19 [History] amLODIPine [Norvasc] 5 mg PO DAILY 03/29/19 [History] Acalabrutinib [Calquence] 100 mg PO BID 09/27/20 [History] DULoxetine HCl [Duloxetine HCl] 30 mg PO BID 09/27/20 [History] Donepezil HCl 10 mg PO DAILY 09/27/20 [History] Famotidine 20 mg PO DAILY 09/27/20 [History] Furosemide [Lasix] 20 mg PO DAILY 09/27/20 [History] Gabapentin [Neurontin] 600 mg PO TID cap 09/27/20 [Rx] Hydrocodone/Acetaminophen [Vicodin Hp 10-300 mg Tablet] 5 - 325 mg PO Q6HR PRN 09/27/20 [History] Loperamide [Imodium] 4 mg PO Q6H PRN #30 cap 09/27/20 [Rx] Nortriptyline HCl [Pamelor] 30 mg PO DAILY 09/27/20 [History] Past Medical History HEENT History: Reports: Impaired Vision Cardiovascular History: Reports: Heart Failure, Hypertension Respiratory History: Reports: COPD, Other (See Below) Other Respiratory History: has had pneumonia once before. 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: Musculoskeletal History: Reports: Arthritis, Other (See Below) Other Musculoskeletal History: sciatica Neurological History: Reports: Neuropathy, Peripheral Other Neuro History: restless legs Psychiatric History: Reports: Anxiety, Depression Other Psychiatric History: progressing memory issues Endocrine/Metabolic History: Reports: None Hematologic History: Reports: None Immunologic History: Reports: None Oncologic (Cancer) History: Reports: Leukemia Other Oncologic History: Recently diagnosed in 08/2020 Dermatologic History: Reports: Other (See Below) Other Dermatologic History: rocessa - Infectious Disease History Infectious Disease History: Reports: Chicken Pox, Measles - Past Surgical History Head Surgeries/Procedures: Reports: None HEENT Surgical History: Reports: Cataract Surgery, Tonsillectomy Cardiovascular Surgical History: Reports: None Respiratory Surgical History: Reports: None GI Surgical History: Reports: Appendectomy, Cholecystectomy, Colonoscopy Female Surgical History: Reports: Hysterectomy Musculoskeletal Surgical History: Reports: Other (See Below) Other Musculoskeletal Surgeries/Procedures:: injection to the back Social & Family History - Family History Family Medical History: No Pertinent Family History Endocrine/Metabolic: Reports: Diabetes, type II Oncologic: Reports: Esophageal Other Oncologic Family History: father of cancer - Tobacco Use Tobacco Use Status *Q: Former Tobacco User Used Tobacco, but Quit: Yes Month/Year Tobacco Last Used: 1999 Tobacco Use Comment: stop date is a guess!! - Caffeine Use Caffeine Use: Reports: Coffee Other Caffeine Use: 2-3 cups/day - Recreational Drug Use Recreational Drug Use: No ED ROS GENERAL - Review of Systems Review Of Systems: Comprehensive ROS is negative, except as noted in HPI. ED EXAM, GENERAL - Physical Exam Exam: See Below Exam Limited By: No Limitations General Appearance: Alert, WD/WN, No Apparent Distress Eye Exam: Bilateral Eye: EOMI, Normal Inspection, PERRL Ears: Normal External Exam, Hearing Grossly Normal Nose: Normal Inspection, No Blood Throat/Mouth: Normal Inspection, Normal Lips, Normal Voice, No Airway Compromise Head: Atraumatic, Normocephalic Neck: Normal Inspection, Full Range of Motion Respiratory/Chest: No Respiratory Distress, Lungs Clear, Decreased Breath Sounds (shallow breathing) Cardiovascular: Normal Peripheral Pulses, Regular Rate, Rhythm, No Murmur Back Exam: Normal Inspection, Full Range of Motion. No: CVA Tenderness (L), CVA Tenderness (R) Extremities: Normal Inspection, Normal Range of Motion, Non-Tender, No Pedal Ed carine Neurological: Alert, Oriented, Normal Cognition, No Motor/Sensory Deficits Psychiatric: Normal Affect, Normal Mood Skin Exam: Warm, Dry, Intact, No Rash, Pallor Course - Vital Signs Last Recorded V/S: Last Vital Signs Temp 96.9 F 10/03/20 02:05 Pulse 59 L 10/03/20 04:21 Resp 20 10/03/20 04:21 BP 138/58 L 10/03/20 04:21 Pulse Ox 96 10/03/20 04:21 - Orders/Labs/Meds Orders: Active Orders 24 hr Category Date Time Status RT Aerosol Therapy [RC] ASDIRECTED Care 10/03/20 02:20 Active Chest 2V [CR] Stat Exams 10/03/20 02:21 Ordered Labs: Laboratory Tests 10/03/20 10/03/20 Range/Units 02:53 02:53 WBC 4.70 L (5.00-10.00) 10^3/uL RBC 3.29 L (3.80-5.50) 10^6/uL Hgb 7.5 L (12.0-16.0) g/dL Hct 28.0 L (37.0-47.0) % MCV 85.1 (82.0-92.0) fL MCH 22.8 L (27.0-31.0) pg MCHC 26.8 L (32.0-36.0) g/dL RDW 16.2 H (11.5-14.5) % Plt Count 113 L (150-400) 10^3/uL MPV 9.7 (7.4-10.4) fL Immature Gran % (Auto) 1.7 (0.0-5.0) % Neut % (Auto) 66.0 (50.0-70.0) % Lymph % (Auto) 17.2 L (20.0-40.0) % [place] % (Auto) 14.0 H (2.0-8.0) % Eos % (Auto) 0.9 L (1.0-3.0) % Baso % (Auto) 0.2 (0.0-1.0) % Neut # (Auto) 3.10 (2.50-7.00) 10^3/uL Lymph # (Auto) 0.81 L (1.00-4.00) 10^3/uL [place] # (Auto) 0.66 (0.10-0.80) 10^3/uL Eos # (Auto) 0.04 L (0.10-0.30) 10^3/uL Baso # (Auto) 0.01 (0.00-0.10) 10^3/uL Immature Gran # (Auto) 0.08 (0.00-0.50) 10^3/uL Sodium 136 (136-145) mmol/L Potassium 4.9 (3.5-5.1) mmol/L Chloride 96 L (98-107) mmol/L Carbon Dioxide 41.3 H (21.0-32.0) mmol/L Anion Gap 3.6 L (5-15) mmol/L BUN 12 (7-18) mg/dL Creatinine 0.73 (0.51-1.17) mg/dL Est Cr Clr Drug Dosing 46.18 mL/min Estimated GFR (MDRD) > 60 mL/min Glucose 110 (70-140) mg/dL Calcium 8.6 L (8.7-10.3) mg/dL Total Bilirubin 0.4 (0.2-1.0) mg/dL AST 43 H (15-37) U/L ALT 53 (14-63) U/L Alkaline Phosphatase 81 (46-116) U/L B-Natriuretic Peptide 522 H (0-100) pg/mL Total Protein 7.6 (6.4-8.2) g/dL Albumin 3.34 L (3.40-5.00) g/dL Meds: Medications Discontinued Medications Generic Name Dose Route Start Last Admin Trade Name Nelli PRN Reason Stop Dose Admin Albuterol/Ipratropium 3 ml 10/03/20 02:20 Albuterol/Ipratropium 3.0-0.5 Mg/3 Ml Neb Soln NEB 10/03/20 02:21 ONETIME ONE - Re-Assessments/Exams Free Text/Narrative Re-Assessment/Exam: 10/03/20 04:34 All blood counts are low with Hg 7.5. I reviewed note from last week when she was admitted and had considered starting blood transfusion but not given. says they saw the ear flap binder yesterday and is monitoring the hemoglobin but didn't recommend transfusion yet. They haven't used the nebulizer for at least two weeks as they kind of forget that option. He doesn't know if it is albuterol or Duoneb for sure. Patient is doing well after Duoneb treatment in ER. Sats in 97-100% on 2.5 liters so decreased to 2 then 1.5 liters and maintaining mid-90's. CXR shows elevated right hemidiaphragm but no pneumonia. Cardiomegaly but no CHF. We discussed treatment options and agree that she should be okay at home if they use the nebulizer when she gets dyspneic. They will follow up with PCP if any problems or return to ER if needed. Discharged to home in stable condition. Departure - Departure Time of Disposition: 04:25 Disposition: Home, Self-Care 01 Condition: Good Clinical Impression: Hypoxemia requiring supplemental oxygen, Leukemia, Pancytopenia Dyspnea Qualifiers: Dyspnea type: unspecified Qualified Code(s): R06.00 - Dyspnea, unspecified - Discharge Information Referrals: Luz Rizzo MD [Primary Care Provider] - Forms: ED Department Discharge Additional Instructions: Continue using the oxygen at home as directed, keeping oxygen sats in mid 90's as we discussed to avoid CO2 buildup. Use your nebulizer (Duoneb) as needed when short of breath. Follow up with your PCP if problems persist. Sepsis Event Note (ED) - Evaluation Sepsis Screening Result: No Definite Risk - Focused Exam Vital Signs: Vital Signs Temp Pulse Resp BP Pulse Ox 10/03/20 04:21 59 L 20 138/58 L 96 10/03/20 03:37 60 20 128/61 94 L 10/03/20 02:20 67 10/03/20 02:05 96.9 F 64 22 H 121/50 L 90 L - My Orders Last 24 Hours: My Active Orders 10/03/20 02:20 RT Aerosol Therapy [RC] ASDIRECTED 10/03/20 02:21 Chest 2V [CR] Stat - Assessment/Plan Last 24 Hours: My Active Orders 10/03/20 02:20 RT Aerosol Therapy [RC] ASDIRECTED 10/03/20 02:21 Chest 2V [CR] Stat
[2020-10-03 04:23] VITALS: BP 138/58; PULSE 59
--- NOTE | 2020-10-03 08:25 | CR ---
[id number] RAD/RAD Chest PA And Lateral EXAM: FRONTAL AND LATERAL CHEST INDICATION: SOB COMPARISON: September 26, 2020. DISCUSSION: Early interstitial edema or infiltrates in the left lung with mildly increased relative to the prior study. Stable cardiomegaly. A prominent calcified granuloma in the right lung base is unchanged. Minimal bilateral pleural effusions. Prior vertebroplasties. Chronic bilateral rib fractures. Stimulator leads midthoracic spinal canal. IMPRESSION: 1. Mild interstitial edema and/or infiltrates in the left mid and lower lung. 2. Trace bilateral effusions. Migel Lozano MD 10/03/20 0824 Thank you for allowing us to participate in the care of your patient.
== END 2020-10-03 05:00 | disposition home or self-care (01) ==
LOC: KA.ED 02:03
DX: D61.818 Other pancytopenia (principal); R09.02 Hypoxemia; C95.90 Leukemia, unspecified not having achieved remission; I11.0 Hypertensive heart disease with heart failure; I50.9 Heart failure, unspecified; J44.9 Chronic obstructive pulmonary disease, unspecified; G62.9 Polyneuropathy, unspecified; Z88.2 Allergy status to sulfonamides; Z99.81 Dependence on supplemental oxygen; Z79.899 Other long term (current) drug therapy; Z87.891 Personal history of nicotine dependence
CPT/HCPCS: 71046; 80053; 83880; 85025; 94640; 99284; 99285-25

== ENCOUNTER 2020-10-03 13:36 | Inpatient (IN) | payer MEDICARE, OTHER ==
[2020-10-03] MEDS ORDERED: Albuterol/Ipratropium 3.0-0.5 MG/3 ML Neb Soln NEB ONE (13:56)
[2020-10-03] MEDS ORDERED: Sodium Chloride 0.9% 1,000 ML ONE (14:16)
--- NOTE | 2020-10-03 14:25 | EDM.PDOC ---
ED HPI GENERAL MEDICAL PROBLEM - General Stated Complaint: CHILLS,FEET BURN,ANXIOUS Time Seen by Provider: 10/03/20 14:11 Source of Information: Reports: Patient, Significant Other History Limitations: Reports: No Limitations - History of Present Illness INITIAL COMMENTS - FREE TEXT/NARRATIVE: Patient returns with low oxygen levels. She is feeling short of breath. Home Health aide was there this morning and saw sats at 89% on 4 liters and said she should go to ER. says she has done DuoNeb 3 times since the ER visit here during the night (about 12 hours ago). They didn't help. He also tells me that the sheep boner had expected her to get a blood transfusion after the clinic visit yesterday, however the message had received was that it was at a level he was just going to monitor. Hg was 7.8 yesterday, 7.5 over night in ER and now 6.9, so will give transfusion. generalized Pain Score (Numeric/FACES): 6 - Related Data Allergies Allergy/AdvReac Type Severity Reaction Status Date / Time Sulfa (Sulfonamide Allergy Nausea and Verified 10/03/20 02:05 Antibiotics) Vomiting Home Meds: Home Meds Multivit-Min/Iron/Folic/Lutein [Centrum Silver Women Tablet] 1 each PO DAILY 03/23/16 [History] Simvastatin 20 mg PO BEDTIME 03/23/16 [History] Acetaminophen [Tylenol Extra Strength] 1,000 mg PO Q4H PRN 09/17/17 [History] Diclofenac Sodium [Voltaren] 75 mg PO BID 09/17/17 [History] Metoprolol Tartrate 50 mg PO BID 09/17/17 [History] Losartan [Cozaar] 100 mg PO DAILY 10/27/18 [History] Albuterol Sulfate [Albuterol Sulfate Hfa] 2 puff INH Q4H PRN 03/29/19 [History] Revefenacin [Yupelri] 3 ml INH DAILY 03/29/19 [History] amLODIPine [Norvasc] 5 mg PO DAILY 03/29/19 [History] Acalabrutinib [Calquence] 100 mg PO BID 09/27/20 [History] DULoxetine HCl [Duloxetine HCl] 30 mg PO BID 09/27/20 [History] Donepezil HCl 10 mg PO DAILY 09/27/20 [History] Famotidine 20 mg PO DAILY 09/27/20 [History] Furosemide [Lasix] 20 mg PO DAILY 09/27/20 [History] Gabapentin [Neurontin] 600 mg PO TID cap 09/27/20 [Rx] Hydrocodone/Acetaminophen [Vicodin Hp 10-300 mg Tablet] 5 - 325 mg PO Q6HR PRN 09/27/20 [History] Loperamide [Imodium] 4 mg PO Q6H PRN #30 cap 09/27/20 [Rx] Nortriptyline HCl [Pamelor] 30 mg PO DAILY 09/27/20 [History] Prochlorperazine [Compazine] 5 mg PO Q6H PRN 10/03/20 [History] traMADol [Ultram] 50 mg PO TID 10/03/20 [History] Past Medical History HEENT History: Reports: Impaired Vision Cardiovascular History: Reports: Heart Failure, Hypertension Respiratory History: Reports: COPD, Other (See Below) Other Respiratory History: has had pneumonia once before. left lung partially collapsed Gastrointestinal History: Reports: Cholelithiasis, Chronic Constipation, Other (See Below) Other Gastrointestinal History: "had holes in the intestine and had surgery to patch the hole back in the Genitourinary History: Reports: None FOUNDRY HAND History: Reports: Musculoskeletal History: Reports: Arthritis, Other (See Below) Other Musculoskeletal History: sciatica Neurological History: Reports: Neuropathy, Peripheral Other Neuro History: restless legs Psychiatric History: Reports: Anxiety, Depression Other Psychiatric History: progressing memory issues Endocrine/Metabolic History: Reports: None Hematologic History: Reports: None Immunologic History: Reports: None Oncologic (Cancer) History: Reports: Leukemia Other Oncologic History: Recently diagnosed in 08/2020 Dermatologic History: Reports: Other (See Below) Other Dermatologic History: rocessa - Infectious Disease History Infectious Disease History: Reports: Chicken Pox, Measles - Past Surgical History Head Surgeries/Procedures: Reports: None HEENT Surgical History: Reports: Cataract Surgery, Tonsillectomy Cardiovascular Surgical History: Reports: None Respiratory Surgical History: Reports: None GI Surgical History: Reports: Appendectomy, Cholecystectomy, Colonoscopy Female Surgical History: Reports: Hysterectomy Musculoskeletal Surgical History: Reports: Other (See Below) Other Musculoskeletal Surgeries/Procedures:: injection to the back Social & Family History - Family History Family Medical History: No Pertinent Family History Endocrine/Metabolic: Reports: Diabetes, type II Oncologic: Reports: Esophageal Other Oncologic Family History: father of cancer - Caffeine Use Caffeine Use: Reports: Coffee Other Caffeine Use: 2-3 cups/day ED ROS GENERAL - Review of Systems Review Of Systems: See Below Constitutional: Reports: Malaise, Weakness, Fatigue. Denies: Fever, Chills HEENT: Denies: Ear Pain, Throat Pain, Vision Change Respiratory: Reports: Shortness of Breath, Cough (mild) Cardiovascular: Denies: Chest Pain, Syncope GI/Abdominal: Denies: Abdominal Pain, Vomiting : Denies: Dysuria, Flank Pain Musculoskeletal: Reports: Other (chronic pain all over but especially in feet that she manages with gabapentin, tramadol and oxycontin) Skin: Reports: Pallor. Denies: Cyanosis, Jaundice, Mottled, Diaphoresis ED EXAM, GENERAL - Physical Exam Exam: See Below Exam Limited By: No Limitations General Appearance: Alert, No Apparent Distress, Thin Eye Exam: Bilateral Eye: EOMI, Normal Inspection, PERRL Ears: Normal External Exam, Hearing Grossly Normal Nose: Normal Inspection, No Blood Throat/Mouth: Normal Inspection, Normal Lips (but dry), Normal Voice, No Airway Compromise Head: Atraumatic, Normocephalic Neck: Normal Inspection Respiratory/Chest: Decreased Breath Sounds, Crackles (bases) Cardiovascular: Normal Peripheral Pulses, Regular Rate, Rhythm, No Edema GI/Abdominal: Normal Bowel Sounds, Soft, Non-Tender, No Organomegaly, No Distention Back Exam: Normal Inspection, Full Range of Motion. No: CVA Tenderness (L), CVA Tenderness (R) Neurological: Alert, Oriented, Normal Cognition Psychiatric: Normal Affect, Normal Mood Skin Exam: Warm, Dry, Intact, No Rash, Pallor Course - Vital Signs Last Recorded V/S: Last Vital Signs Temp 97.5 F 10/03/20 17:20 Pulse 76 10/03/20 17:20 Resp 16 10/03/20 17:20 BP 114/73 10/03/20 17:20 Pulse Ox 90 L 10/03/20 16:53 - Orders/Labs/Meds Orders: Active Orders 24 hr Category Date Time Status Patient Status [ADT] Routine ADT 10/03/20 17:38 Ordered RT Aerosol Therapy [RC] ASDIRECTED Care 10/03/20 13:56 Active Verify Patient Consent Obtain [RC] ASDIRECTED Care 10/03/20 15:55 Active RED BLOOD CELLS LP [BBK] Stat Lab 10/03/20 15:30 Results TYPE AND SCREEN [BBK] Stat Lab 10/03/20 14:04 Received Sodium Chloride 0.9% [Normal Saline] 500 ml Med 10/03/20 17:00 Active IV ASDIRECTED Blood Transfusion Reflex Orders [OM.PC] Routine Oth 10/03/20 15:54 Ordered Transfuse Red Blood Cells [COMM] Stat Oth 10/03/20 15:54 Ordered Medication Orders Sodium Chloride (Normal Saline) 500 mls @ 100 mls/hr IV ASDIRECTED [facility] Labs: Laboratory Tests 10/03/20 10/03/20 10/03/20 Range/Units 14:04 14:31 15:12 WBC 4.72 L (5.00-10.00) 10^3/uL RBC 3.09 L (3.80-5.50) 10^6/uL Hgb 6.9 L* (12.0-16.0) g/dL Hct 25.6 L (37.0-47.0) % MCV 82.8 (82.0-92.0) fL MCH 22.3 L (27.0-31.0) pg MCHC 27.0 L (32.0-36.0) g/dL RDW 16.5 H (11.5-14.5) % Plt Count 108 L (150-400) 10^3/uL MPV 10.1 (7.4-10.4) fL Immature Gran % (Auto) 1.5 (0.0-5.0) % Neut % (Auto) 64.4 (50.0-70.0) % Lymph % (Auto) 19.3 L (20.0-40.0) % [place] % (Auto) 13.6 H (2.0-8.0) % Eos % (Auto) 0.8 L (1.0-3.0) % Baso % (Auto) 0.4 (0.0-1.0) % Neut # (Auto) 3.04 (2.50-7.00) 10^3/uL Lymph # (Auto) 0.91 L (1.00-4.00) 10^3/uL [place] # (Auto) 0.64 (0.10-0.80) 10^3/uL Eos # (Auto) 0.04 L (0.10-0.30) 10^3/uL Baso # (Auto) 0.02 (0.00-0.10) 10^3/uL Immature Gran # (Auto) 0.07 (0.00-0.50) 10^3/uL Microcytosis Rare B-Natriuretic Peptide 513 H (0-100) pg/mL Specimen Type Urinvoid Urine Color Yellow (YELLOW) Urine Appearance Clear (CLEAR) Urine pH 6.0 (5.0-9.0) Ur Specific [place] 1.025 (1.005-1.030) Urine Protein Trace H (NEGATIVE) mg/dL Urine Glucose (UA) Negative (NEGATIVE) mg/dL Urine Ketones Negative (NEGATIVE) mg/dL Urine Occult Blood Trace-intact H (NEGATIVE) Urine Nitrite Negative (NEGATIVE) Urine Bilirubin Negative (NEGATIVE) Urine Urobilinogen 0.2 (0.2-1.0) E.U./dL Ur Leukocyte Esterase Negative (NEGATIVE) Urine RBC 0-5 (0-5) /HPF Urine WBC 5-10 H (0-5) /HPF Ur Epithelial Cells Not seen /LPF Urine Bacteria Not seen (NONE TO FEW) /HPF Blood Type Gel Antibody Screen Crossmatch 10/03/20 Range/Units 15:30 WBC (5.00-10.00) 10^3/uL RBC (3.80-5.50) 10^6/uL Hgb (12.0-16.0) g/dL Hct (37.0-47.0) % MCV (82.0-92.0) fL MCH (27.0-31.0) pg MCHC (32.0-36.0) g/dL RDW (11.5-14.5) % Plt Count (150-400) 10^3/uL MPV (7.4-10.4) fL Immature Gran % (Auto) (0.0-5.0) % Neut % (Auto) (50.0-70.0) % Lymph % (Auto) (20.0-40.0) % [place] % (Auto) (2.0-8.0) % Eos % (Auto) (1.0-3.0) % Baso % (Auto) (0.0-1.0) % Neut # (Auto) (2.50-7.00) 10^3/uL Lymph # (Auto) (1.00-4.00) 10^3/uL [place] # (Auto) (0.10-0.80) 10^3/uL Eos # (Auto) (0.10-0.30) 10^3/uL Baso # (Auto) (0.00-0.10) 10^3/uL Immature Gran # (Auto) (0.00-0.50) 10^3/uL Microcytosis B-Natriuretic Peptide (0-100) pg/mL Specimen Type Urine Color (YELLOW) Urine Appearance (CLEAR) Urine pH (5.0-9.0) Ur Specific [place] (1.005-1.030) Urine Protein (NEGATIVE) mg/dL Urine Glucose (UA) (NEGATIVE) mg/dL Urine Ketones (NEGATIVE) mg/dL Urine Occult Blood (NEGATIVE) Urine Nitrite (NEGATIVE) Urine Bilirubin (NEGATIVE) Urine Urobilinogen (0.2-1.0) E.U./dL Ur Leukocyte Esterase (NEGATIVE) Urine RBC (0-5) /HPF Urine WBC (0-5) /HPF Ur Epithelial Cells /LPF Urine Bacteria (NONE TO FEW) /HPF Blood Type A POSITIVE Gel Antibody Screen Negative Crossmatch See Detail Meds: Medications Generic Name Dose Route Start Last Admin Trade Name Freq PRN Reason Stop Dose Admin Sodium Chloride 500 mls @ 100 mls/hr 10/03/20 17:00 Normal Saline IV ASDIRECTED NOE Discontinued Medications Generic Name Dose Route Start Last Admin Trade Name Freq PRN Reason Stop Dose Admin Albuterol/Ipratropium 3 ml 10/03/20 13:56 10/03/20 14:02 Albuterol/Ipratropium 3.0-0.5 Mg/3 Ml Neb Soln NEB 10/03/20 13:57 3 ml ONETIME ONE Administration Sodium Chloride Confirm 10/03/20 14:16 10/03/20 14:33 Normal Saline Administered 10/03/20 14:17 Not Given Dose 1,000 mls @ as directed .ROUTE .STK-MED ONE Sodium Chloride 1,000 mls @ 999 mls/hr 10/03/20 14:32 10/03/20 14:34 Normal Saline IV 10/03/20 15:32 999 mls/hr .BOLUS ONE Administration - Re-Assessments/Exams Free Text/Narrative Re-Assessment/Exam: 10/03/20 15:20 CXR now, compared with 12 hours ago, shows increased mild to moderate bilateral interstitial edema and/or infiltrates. 10/03/20 17:41 Discussed case with Vandana Rebollar NP who discussed with PCP Dr. Rizzo. We will admit for treatment. Patient is requiring signficantly more oxygen than she did last night. We are giving blood now and will wait to address the presumed pneumonia until the blood is in. The possibility of hospice will be discussed during hospitalization as well. 10/03/20 17:46 Labs continue to show pancytopenia. Hg has dropped from 7.5 to 6.9 in last 12 hours. Departure - Departure Time of Disposition: 17:39 Disposition: Admitted As Inpatient 68 Condition: Fair Clinical Impression: Hypoxemia requiring supplemental oxygen Anemia Qualifiers: Anemia type: unspecified type Qualified Code(s): D64.9 - Anemia, unspecified Dyspnea Qualifiers: Dyspnea type: unspecified Qualified Code(s): R06.00 - Dyspnea, unspecified CAP (community acquired pneumonia) Qualifiers: Lung location: lower lobe of lung - Discharge Information Referrals: Luz Rizzo MD [Primary Care Provider] - Sepsis Event Note (ED) - Focused Exam Vital Signs: Vital Signs Temp Temp Pulse Resp BP Pulse Ox 10/03/20 17:20 97.5 F 76 16 114/73 10/03/20 17:03 97 F 68 16 146/69 H 10/03/20 16:53 74 13 133/82 90 L 10/03/20 16:20 67 19 135/62 91 L 10/03/20 16:14 98.2 F 69 16 144/62 H 92 L 10/03/20 15:30 66 20 137/83 92 L 10/03/20 15:27 63 97 10/03/20 15:15 72 21 H 113/83 88 L 10/03/20 15:00 67 20 126/52 L 89 L 10/03/20 14:50 98.4 F 65 20 133/79 89 L 10/03/20 14:45 66 18 133/107 H 90 L 10/03/20 14:30 62 22 H 155/67 H 89 L 10/03/20 14:02 67 - My Orders Last 24 Hours: My Active Orders 10/03/20 13:56 RT Aerosol Therapy [RC] ASDIRECTED 10/03/20 14:04 TYPE AND SCREEN [BBK] Stat 10/03/20 15:30 RED BLOOD CELLS LP [BBK] Stat 10/03/20 15:54 Blood Transfusion Reflex Orders [OM.PC] Routine Transfuse Red Blood Cells [COMM] Stat 10/03/20 15:55 Verify Patient Consent Obtain [RC] ASDIRECTED 10/03/20 17:00 Sodium Chloride 0.9% [Normal Saline] 500 ml IV ASDIRECTED 10/03/20 17:38 Patient Status [ADT] Routine - Assessment/Plan Last 24 Hours: My Active Orders 10/03/20 13:56 RT Aerosol Therapy [RC] ASDIRECTED 10/03/20 14:04 TYPE AND SCREEN [BBK] Stat 10/03/20 15:30 RED BLOOD CELLS LP [BBK] Stat 10/03/20 15:54 Blood Transfusion Reflex Orders [OM.PC] Routine Transfuse Red Blood Cells [COMM] Stat 10/03/20 15:55 Verify Patient Consent Obtain [RC] ASDIRECTED 10/03/20 17:00 Sodium Chloride 0.9% [Normal Saline] 500 ml IV ASDIRECTED 10/03/20 17:38 Patient Status [ADT] Routine
[2020-10-03] MEDS ORDERED: Sodium Chloride 0.9% 1,000 ML IV ONE (14:32)
--- NOTE | 2020-10-03 15:16 | CR ---
[id number] RAD/RAD Chest PA or AP 1V EXAM: FRONTAL CHEST INDICATION: Cough with crackles in the lung bases. COMPARISON: October 03, 2020. DISCUSSION: Stable cardiomegaly. Increased mild to moderate bilateral interstitial edema and/or infiltrates. Small bilateral pleural effusions. Calcified granulomata in the right lung base are unchanged. Stimulator leads in the mid to lower thoracic spinal canal. Chronic right rib fractures. IMPRESSION: 1. Mild to moderate bilateral interstitial edema and/or infiltrates have increased. Migel Lozano MD 10/03/20 [id number] Thank you for allowing us to participate in the care of your patient.
[2020-10-03] MEDS ORDERED: Sodium Chloride 0.9% 500 ML IV SCH (17:00)
[2020-10-03] MEDS ORDERED: LORazepam 0.5 MG Tab ONE (18:44)
[2020-10-03] MEDS ORDERED: LORazepam 0.5 MG Tab PO ONE ×2 (18:45→20:49)
[2020-10-03] MEDS ORDERED: Prochlorperazine 5 MG Tab PO PRN (20:26)
[2020-10-03] MEDS ORDERED: Loperamide 2 MG Cap PO PRN (20:26)
[2020-10-03] MEDS ORDERED: Acetaminophen 500 MG Tab PO PRN (20:26)
[2020-10-03] MEDS ORDERED: Acetaminophen/HYDROcodone 325-5 MG Tab PO PRN ×2 (20:26→21:13)
[2020-10-03] MEDS ORDERED: Simvastatin 20 MG Tab PO SCH (21:00)
[2020-10-03] MEDS ORDERED: Melatonin 3 MG Tab PO SCH (21:00)
[2020-10-03] MEDS: Metoprolol Tartrate 50 MG Tab PO SCH (21:04)
[2020-10-03] MEDS: Diclofenac Sodium 75 MG Tab.EC PO SCH (21:04)
[2020-10-03] MEDS: DULoxetine 30 MG Cap PO SCH (21:04)
[2020-10-03] MEDS: Gabapentin 300 MG Cap PO SCH (21:04)
[2020-10-03] MEDS: traMADol 50 MG Tab PO SCH (21:05)
[2020-10-04] MEDS ORDERED: Albuterol 8 GM Inhaler INH PRN (00:31)
[2020-10-04] MEDS ORDERED: Furosemide 40 MG/4 ML VIAL IVPUSH ONE ×3 (01:21→16:20)
--- NOTE | 2020-10-04 08:26 | PCM.HP.2 ---
H&P History of Present Illness - General Date of Service: 10/04/20 Admit Problem/Dx: Admission Diagnosis/Problem Admission Diagnosis/Problem Anemia Source of Information: Old Records, Provider, RN generalized Pain Score (Numeric/FACES): 6 - Related Data Allergies/Adverse Reactions: Allergies Allergy/AdvReac Type Severity Reaction Status Date / Time Sulfa (Sulfonamide Allergy Nausea and Verified 10/03/20 02:05 Antibiotics) Vomiting Home Medications: Home Meds Multivit-Min/Iron/Folic/Lutein [Centrum Silver Women Tablet] 1 each PO DAILY 03/23/16 [History] Simvastatin 20 mg PO BEDTIME 03/23/16 [History] Acetaminophen [Tylenol Extra Strength] 1,000 mg PO Q4H PRN 09/17/17 [History] Diclofenac Sodium [Voltaren] 75 mg PO BID 09/17/17 [History] Metoprolol Tartrate 50 mg PO BID 09/17/17 [History] Losartan [Cozaar] 100 mg PO DAILY 10/27/18 [History] Albuterol Sulfate [Albuterol Sulfate Hfa] 2 puff INH Q4H PRN 03/29/19 [History] Revefenacin [Yupelri] 3 ml INH DAILY 03/29/19 [History] amLODIPine [Norvasc] 5 mg PO DAILY 03/29/19 [History] Acalabrutinib [Calquence] 100 mg PO BID 09/27/20 [History] DULoxetine HCl [Duloxetine HCl] 30 mg PO BID 09/27/20 [History] Donepezil HCl 10 mg PO DAILY 09/27/20 [History] Famotidine 20 mg PO DAILY 09/27/20 [History] Furosemide [Lasix] 20 mg PO DAILY 09/27/20 [History] Gabapentin [Neurontin] 600 mg PO TID cap 09/27/20 [Rx] Hydrocodone/Acetaminophen [Vicodin Hp 10-300 mg Tablet] 5 - 325 mg PO Q6HR PRN 09/27/20 [History] Loperamide [Imodium] 4 mg PO Q6H PRN #30 cap 09/27/20 [Rx] Nortriptyline HCl [Pamelor] 30 mg PO DAILY 09/27/20 [History] Prochlorperazine [Compazine] 5 mg PO Q6H PRN 10/03/20 [History] traMADol [Ultram] 50 mg PO Q6H 10/03/20 [History] Past Medical History HEENT History: Reports: Impaired Vision Cardiovascular History: Reports: Heart Failure, Hypertension Respiratory History: Reports: COPD, Other (See Below) Other Respiratory History: has had pneumonia once before. 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: Musculoskeletal History: Reports: Arthritis, Other (See Below) Other Musculoskeletal History: sciatica Neurological History: Reports: Neuropathy, Peripheral Other Neuro History: restless legs Psychiatric History: Reports: Anxiety, Depression Other Psychiatric History: progressing memory issues Endocrine/Metabolic History: Reports: None Hematologic History: Reports: None Immunologic History: Reports: None Oncologic (Cancer) History: Reports: Leukemia Other Oncologic History: Recently diagnosed in 08/2020 Dermatologic History: Reports: Other (See Below) Other Dermatologic History: rocessa - Infectious Disease History Infectious Disease History: Reports: Chicken Pox, Measles - Past Surgical History Head Surgeries/Procedures: Reports: None HEENT Surgical History: Reports: Cataract Surgery, Tonsillectomy Cardiovascular Surgical History: Reports: None Respiratory Surgical History: Reports: None GI Surgical History: Reports: Appendectomy, Cholecystectomy, Colonoscopy Female Surgical History: Reports: Hysterectomy Musculoskeletal Surgical History: Reports: Other (See Below) Other Musculoskeletal Surgeries/Procedures:: injection to the back Social & Family History - Family History Family Medical History: No Pertinent Family History Endocrine/Metabolic: Reports: Diabetes, type II Oncologic: Reports: Esophageal Other Oncologic Family History: father of cancer - Tobacco Use Tobacco Use Status *Q: Never Tobacco User - Caffeine Use Caffeine Use: Reports: Coffee Other Caffeine Use: 2-3 cups/day - Recreational Drug Use Recreational Drug Use: No H&P Review of Systems - Review of Systems: Review Of Systems: See Below Exam - Exam Exam: See Below - Vital Signs Vital Signs: Last Vital Signs Temp 97.6 F 10/04/20 06:22 Pulse 56 L 10/04/20 06:22 Resp 22 H 10/04/20 06:22 BP 121/46 L 10/04/20 06:22 Pulse Ox 91 L 10/04/20 06:22 Weight: 148 lb - Exam Quality Assessment: Supplemental Oxygen General: Other (Morning on rounds patient hollering, agitation significant, improved with calming soothing talking measures). No: Alert, Oriented Lungs: Crackles Cardiovascular: Tachycardia GI/Abdominal Exam: Soft, No Distention (Female) Exam: Deferred Extremities: Slow Capillary Refill Skin: Other ([place]) Neurological: Sensation Intact Neuro Extensive - Mental Status: Other (Patient uncooperative, hollering, agit ated) Psychiatric: Agitated - Patient Data Lab Results Last 24 hrs: Laboratory Results - last 24 hr 10/03/20 10/03/20 10/03/20 Range/Units 14:04 14:31 15:12 WBC 4.72 L (5.00-10.00) 10^3/uL RBC 3.09 L (3.80-5.50) 10^6/uL Hgb 6.9 L* (12.0-16.0) g/dL Hct 25.6 L (37.0-47.0) % MCV 82.8 (82.0-92.0) fL MCH 22.3 L (27.0-31.0) pg MCHC 27.0 L (32.0-36.0) g/dL RDW 16.5 H (11.5-14.5) % Plt Count 108 L (150-400) 10^3/uL MPV 10.1 (7.4-10.4) fL Immature Gran % (Auto) 1.5 (0.0-5.0) % Neut % (Auto) 64.4 (50.0-70.0) % Lymph % (Auto) 19.3 L (20.0-40.0) % [place] % (Auto) 13.6 H (2.0-8.0) % Eos % (Auto) 0.8 L (1.0-3.0) % Baso % (Auto) 0.4 (0.0-1.0) % Neut # (Auto) 3.04 (2.50-7.00) 10^3/uL Lymph # (Auto) 0.91 L (1.00-4.00) 10^3/uL [place] # (Auto) 0.64 (0.10-0.80) 10^3/uL Eos # (Auto) 0.04 L (0.10-0.30) 10^3/uL Baso # (Auto) 0.02 (0.00-0.10) 10^3/uL Immature Gran # (Auto) 0.07 (0.00-0.50) 10^3/uL Microcytosis Rare B-Natriuretic Peptide 513 H (0-100) pg/mL Specimen Type Urinvoid Urine Color Yellow (YELLOW) Urine Appearance Clear (CLEAR) Urine pH 6.0 (5.0-9.0) Ur Specific [place] 1.025 (1.005-1.030) Urine Protein Trace H (NEGATIVE) mg/dL Urine Glucose (UA) Negative (NEGATIVE) mg/dL Urine Ketones Negative (NEGATIVE) mg/dL Urine Occult Blood Trace-intact H (NEGATIVE) Urine Nitrite Negative (NEGATIVE) Urine Bilirubin Negative (NEGATIVE) Urine Urobilinogen 0.2 (0.2-1.0) E.U./dL Ur Leukocyte Esterase Negative (NEGATIVE) Urine RBC 0-5 (0-5) /HPF Urine WBC 5-10 H (0-5) /HPF Ur Epithelial Cells Not seen /LPF Urine Bacteria Not seen (NONE TO FEW) /HPF SARS CoV-2 RNA Rapid RADHA (NEGATIVE) Blood Type Gel Antibody Screen Crossmatch 10/03/20 10/03/20 Range/Units 15:30 17:45 WBC (5.00-10.00) 10^3/uL RBC (3.80-5.50) 10^6/uL Hgb (12.0-16.0) g/dL Hct (37.0-47.0) % MCV (82.0-92.0) fL MCH (27.0-31.0) pg MCHC (32.0-36.0) g/dL RDW (11.5-14.5) % Plt Count (150-400) 10^3/uL MPV (7.4-10.4) fL Immature Gran % (Auto) (0.0-5.0) % Neut % (Auto) (50.0-70.0) % Lymph % (Auto) (20.0-40.0) % [place] % (Auto) (2.0-8.0) % Eos % (Auto) (1.0-3.0) % Baso % (Auto) (0.0-1.0) % Neut # (Auto) (2.50-7.00) 10^3/uL Lymph # (Auto) (1.00-4.00) 10^3/uL [place] # (Auto) (0.10-0.80) 10^3/uL Eos # (Auto) (0.10-0.30) 10^3/uL Baso # (Auto) (0.00-0.10) 10^3/uL Immature Gran # (Auto) (0.00-0.50) 10^3/uL Microcytosis B-Natriuretic Peptide (0-100) pg/mL Specimen Type Urine Color (YELLOW) Urine Appearance (CLEAR) Urine pH (5.0-9.0) Ur Specific [place] (1.005-1.030) Urine Protein (NEGATIVE) mg/dL Urine Glucose (UA) (NEGATIVE) mg/dL Urine Ketones (NEGATIVE) mg/dL Urine Occult Blood (NEGATIVE) Urine Nitrite (NEGATIVE) Urine Bilirubin (NEGATIVE) Urine Urobilinogen (0.2-1.0) E.U./dL Ur Leukocyte Esterase (NEGATIVE) Urine RBC (0-5) /HPF Urine WBC (0-5) /HPF Ur Epithelial Cells /LPF Urine Bacteria (NONE TO FEW) /HPF SARS CoV-2 RNA Rapid RADHA Negative (NEGATIVE) Blood Type A POSITIVE Gel Antibody Screen Negative Crossmatch See Detail Result Diagrams: 10/04/20 16:46 10/04/20 16:46 Sepsis Event Note - Evaluation Sepsis Screening Result: No Definite Risk - Focused Exam Vital Signs: Vital Signs Temp Temp Pulse Pulse Resp BP BP 10/04/20 06:22 97.6 F 56 L 22 H 121/46 L 10/04/20 03:00 97.1 F 55 L 20 120/66 10/04/20 01:03 97.3 F 62 24 H 134/41 L 10/03/20 23:16 97.5 F 81 22 H 137/53 L 10/03/20 23:00 97.5 F 84 20 137/53 L 10/03/20 21:04 98 162/65 H 10/03/20 20:46 98.0 F 106 H 24 H 149/78 H 10/03/20 20:31 98.0 F 101 H 24 H 163/79 H Pulse Ox 10/04/20 06:22 91 L 10/04/20 03:00 89 L 10/04/20 01:03 90 L 10/03/20 23:16 94 L 10/03/20 23:00 94 L 10/03/20 21:04 10/03/20 20:46 85 L 10/03/20 20:31 92 L Problem List Initiated/Reviewed/Updated: Yes Orders Last 24hrs: Active Orders 24 hr Category Date Time Status Patient Status [ADT] Routine ADT 10/03/20 17:38 Active RT Aerosol Therapy [RC] ASDIRECTED Care 10/03/20 13:56 Active Heart Healthy Diet [DIET] Diet 10/04/20 Breakfast Active B-TYPE NATRIURETIC PEPTIDE,BNP [CHEM] Routine Lab 10/04/20 07:30 Received CBC WITH AUTO DIFF [HEME] Routine Lab 10/04/20 07:30 Received CMP [COMPREHENSIVE METABOLIC PN,CMP] [CHEM] Routine Lab 10/04/20 07:30 Received Acetaminophen [Tylenol Extra Strength] Med 10/03/20 20:26 Active 1,000 mg PO Q4H PRN Acetaminophen/HYDROcodone [[place] 325-5 MG] Med 10/03/20 21:13 Active 1 tab PO Q6HR PRN Albuterol [Ventolin HFA] Med 10/04/20 00:31 Active 0 gm INH Q4H PRN DULoxetine [Cymbalta] Med 10/03/20 21:00 Active 30 mg PO BID Diclofenac Sodium [Voltaren] Med 10/03/20 21:00 Active 75 mg PO BID Donepezil [Aricept] Med 10/04/20 09:00 Active 10 mg PO DAILY FA/Lycopene/Lut/MV,Ca,Iron,Min [Centrum] Med 10/04/20 09:00 Active 1 tab PO DAILY Famotidine [Pepcid] Med 10/04/20 09:00 Active 20 mg PO DAILY Furosemide [Lasix] Med 10/04/20 09:00 Active 20 mg PO DAILY Gabapentin [Neurontin] Med 10/03/20 21:00 Active 600 mg PO TID Loperamide [Imodium] Med 10/03/20 20:26 Active 4 mg PO Q6H PRN Losartan [Cozaar] Med 10/04/20 09:00 Active 100 mg PO DAILY Melatonin Med 10/03/20 21:00 Active 3 mg PO BEDTIME Metoprolol Tartrate [Lopressor] Med 10/03/20 21:00 Active 50 mg PO BID Nortriptyline HCl [Pamelor] Med 10/04/20 21:00 Active 30 mg PO BEDTIME Prochlorperazine [Compazine] Med 10/03/20 20:26 Active 5 mg PO Q6H PRN Revefenacin [Yupelri] Med 10/04/20 09:00 Active 175 mcg INH DAILYRT Simvastatin [Zocor] Med 10/03/20 21:00 Active 20 mg PO BEDTIME Sodium Chloride 0.9% [Normal Saline] 500 ml Med 10/03/20 17:00 Active IV ASDIRECTED amLODIPine [Norvasc] Med 10/04/20 09:00 Active 5 mg PO DAILY traMADol [Ultram] Med 10/03/20 21:00 Active 50 mg PO TID Blood Transfusion Reflex Orders [OM.PC] Routine Oth 10/03/20 15:54 Ordered Transfuse Red Blood Cells [COMM] Stat Oth 10/03/20 15:54 Ordered Resuscitation Status Routine Resus Stat 10/04/20 01:01 Ordered Medication Orders Acetaminophen (Acetaminophen 500 Mg Tab) 1,000 mg PO Q4H PRN PRN Reason: Pain Hydrocodone Bitart/Acetaminophen (Acetaminophen/Hydrocodone 325-5 Mg Tab) 1 tab PO Q6HR PRN PRN Reason: Pain Albuterol (Albuterol 8 Gm Inhaler) 0 gm INH Q4H PRN PRN Reason: Shortness of Breath Amlodipine Besylate (Amlodipine 5 Mg Tab) 5 mg PO DAILY [facility] Diclofenac Sodium (Diclofenac Sodium 75 Mg Tab.Ec) 75 mg PO BID [facility] Last Admin: 10/03/20 21:04 Dose: 75 mg Documented by: ALEJA Donepezil HCl (Donepezil 10 Mg Tab) 10 mg PO DAILY [facility] Duloxetine HCl (Duloxetine 30 Mg Cap) 30 mg PO BID [facility] Last Admin: 10/03/20 21:04 Dose: 30 mg Documented by: ALEJA Famotidine (Famotidine 20 Mg Tab) 20 mg PO DAILY NOE Furosemide (Furosemide 20 Mg Tab) 20 mg PO DAILY [facility] Gabapentin (Gabapentin 300 Mg Cap) 600 mg PO TID [facility] Last Admin: 10/03/20 21:04 Dose: 600 mg Documented by: ALEJA Sodium Chloride (Normal Saline) 500 mls @ 100 mls/hr IV ASDIRECTED [facility] Loperamide HCl (Loperamide 2 Mg Cap) 4 mg PO Q6H PRN PRN Reason: Diarrhea Losartan Potassium (Losartan 50 Mg Tab) 100 mg PO DAILY [facility] Melatonin (Melatonin 3 Mg Tab) 3 mg PO BEDTIME [facility] Last Admin: 10/03/20 21:05 Dose: 3 mg Documented by: ALEJA Metoprolol Tartrate (Metoprolol Tartrate 50 Mg Tab) 50 mg PO BID [facility] Last Admin: 10/03/20 21:04 Dose: 50 mg Documented by: ALEJA Multivitamins/Minerals (Multivitamins With Minerals/Iron/Folic Acid/Lycopene Tab) 1 tab PO DAILY [facility] (Nortriptyline Hcl [ Pamelor] 10 Mg Capsule)Own Med * 30 mg PO BEDTIME [facility] Prochlorperazine Maleate (Prochlorperazine 5 Mg Tab) 5 mg PO Q6H PRN PRN Reason: Nausea Simvastatin (Simvastatin 20 Mg Tab) 20 mg PO BEDTIME [facility] Last Admin: 10/03/20 21:04 Dose: 20 mg Documented by: ALEJA Tramadol HCl (Tramadol 50 Mg Tab) 50 mg PO TID [facility] Last Admin: 10/03/20 21:05 Dose: 50 mg Documented by: ALEJA Assessment/Plan Comment:: History of present illness Ms Castanon is a 85y female was admitted into inpatient status due to shortness of breath and hypoxia. She had initially presented to the ED ~12hrs prior with shortness of breath and was treated with a DuoNeb and released to home however it was noted by the home health aide that her oxygen saturations were 89% on 4 L despite DuoNebs and was advised to return return back to ED. Was recently discharged from [facility] last week when she came in for increased weakness and shortness of breath that she had been having for a few days prior. At that time her chest x-ray showed no acute process. She was found to be pancytopenia, weak, and was treated for UTI. Patient is also under the care of Dr. 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 Patient was admitted with orders for blood transfusion ED course Isotonic saline 1000 L bolus orders to transfuse Chest x-ray, @0200--comparison, September 26; interstitial edema with trace bilateral effusions, stable cardiomegaly. Repeated same day 1430 mild to moderate bilateral interstitial edema have increased Hospital course 10/04/2020; on-call provider was notified ~midnight regarding shortness of breath, orders for 20 mg Lasix given. Little output thereafter. BNP elevated from 513 to 988. Morning on rounds patient significantly agitated, thrashing around in bed, hollering, uncooperative--ameliorated with calming soothing talking measures. Nurses report significant after Ativan last night. Primary hospital problems --Anemia, status post 2 units packed red blood cells given --Acute on chronic respiratory failure with hypoxia --HFpEF exacerbation, (last echo 09/18/17 - EF of 65%), BNP elevated from 513 to 988. --Acute psychosis, suspect hypoxia related, IV Lasix 40 mg stat --Hyperkalemia, HOLD ARB, HOLD PRN ALB INHALER, added albuterol nebs, trend. give Lasix, --Leukemia, poorly progressing, small lymphocytic lymphoma, Holding Acalabrutinib Chronic, conditions: Hypertension Chronic obstructive pulmonary disease, unspecified COPD type - on home O2 2L at baseline, paralyzed hemidiaphragm ROGER (obstructive sleep apnea) Granulomatous lung disease Pulmonary nodules Hyperlipidemia Depression/Dementia progressive Hydrocephalus, adult Pancytopenia Small lymphocytic lymphoma Macrocytosis Chronic left-sided low back pain with left-sided sciatica Severe peripheral neuropathy Restless legs syndrome GERD Chronic constipation Hepatic steatosis Transaminitis Diverticulosis Mixed stress and urge urinary incontinence Generalized osteoarthritis of multiple sites Age related osteoporosis Chronic pain syndrome S/P insertion of spinal cord stimulator Physical deconditioning Frequent falls Disposition/overall plan --Lasix 40 mg x 1 now --Repeat potassium 5pm Social Code status: DNR per POLST on file at [place] Emergency contact: , Efrain [phone] - Mortality Measure Prognosis:: Poor
[2020-10-04 08:36] LABS: ANION GAP 7.4 mmol/L (5-15); CHLORIDE,CL 97 mmol/L (98-107); SODIUM,NA 136 mmol/L (136-145)
[2020-10-04] MEDS ORDERED: Famotidine 20 MG Tab PO SCH (09:00)
[2020-10-04] MEDS ORDERED: Multivitamins with Minerals/Iron/Folic Acid/Lycopene Tab PO SCH (09:00)
[2020-10-04] MEDS ORDERED: Revefenacin 175 MCG/3 ML Neb Soln INH SCH (09:00)
[2020-10-04] MEDS ORDERED: Donepezil 10 MG Tab PO SCH (09:00)
[2020-10-04] MEDS ORDERED: amLODIPine 5 MG Tab PO SCH (09:00)
[2020-10-04] MEDS ORDERED: Losartan 50 MG Tab PO SCH (09:00)
[2020-10-04] MEDS ORDERED: Furosemide 20 MG Tab PO SCH (09:00)
[2020-10-04] MEDS: DULoxetine 30 MG Cap PO SCH (10:51)
[2020-10-04] MEDS: Gabapentin 300 MG Cap PO SCH ×2 (10:51→18:40)
[2020-10-04] MEDS: traMADol 50 MG Tab PO SCH ×2 (10:52→18:40)
[2020-10-04] MEDS: Diclofenac Sodium 75 MG Tab.EC PO SCH (10:54)
[2020-10-04] MEDS: Metoprolol Tartrate 50 MG Tab PO SCH (10:54)
[2020-10-04] MEDS: Albuterol 0.083% 2.5 MG/3 ML Neb Soln NEB SCH ×2 (13:42→18:46)
[2020-10-04 16:53] LABS: PCO2 ARTERIAL,POC 106 mmHg (35-48)
[2020-10-04] MEDS ORDERED: Gabapentin 300 MG Cap PO SCH (17:00)
[2020-10-04] MEDS ORDERED: traMADol 50 MG Tab PO SCH (17:00)
[2020-10-04 17:10] LABS: ANION GAP 6.9 mmol/L (5-15)
[2020-10-04] MEDS ORDERED: Glycopyrrolate 0.2 MG/ML SDV IVPUSH PRN (17:35)
--- NOTE | 2020-10-04 17:38 | PCM.PN ---
- General Info Date of Service: 10/04/20 Subjective Update: Notified by rounding provider, RUTHY Armas, and nursing staff of patient's progressively declining status. ABG and labs had been ordered by rounding provider to reassess and were notable for ABG 7.2/106/63-39, potassium of 6.2 with declining creatinine with minimal urine output despite overloaded status and furosemide 100mg IV in the past 24hrs. Arrived at bedside at 1655 noting patient to be sitting in bedside chair and minimally responsive, but appearing comfortable. , Efrain, at bedside provided history that patient has been declining, most notably in the past month and more rapidly in the past couple weeks and days. He was at bedside this morning when patient was extremely agitated and he endorsed that situations with increased confusion have been happening more often lately. He also endorsed that in the past month, she has been talking about wanting to see her friends and family who have previously . When discussing her current status, he inquired, "Do we have to keep poking her anymore?" and endorsed awareness that she was dying. He readily endorsed knowing her wishes to not have any heroic measures and firmly states t hat her code status is DNR/DNI. He states that they have had many conversations over the years and he is confident that if she were to be able to freely talk to us right now, she would wish for her primary goal to be provided comfort and not have interventions. Discussed comfort care measures and provided support. Sat with patient when he called one of their daughters and their son; discussed winsome ent's critical status and answered questions. Their three children are all planning to arrive at the hospital later this evening or tomorrow morning. - Patient Data Vitals - Most Recent: Last Vital Signs Temp 35.9 C L 10/04/20 15:00 Pulse 55 L 10/04/20 15:00 Resp 18 10/04/20 15:00 BP 97/73 10/04/20 15:00 Pulse Ox 88 L 10/04/20 15:00 Weight - Most Recent: 66.542 kg I&O - Last 24 Hours: Intake & Output 10/04/20 10/04/20 10/04/20 06:59 14:59 22:59 Intake Total 332 300 Output Total 250 Balance 332 50 Lab Results Last 24 Hours: Laboratory Results - last 24 hr 10/03/20 10/03/20 10/04/20 Range/Units 15:30 17:45 07:30 WBC 8.86 (5.00-10.00) 10^3/uL RBC 4.29 (3.80-5.50) 10^6/uL Hgb 10.7 L D (12.0-16.0) g/dL Hct 38.1 (37.0-47.0) % MCV 88.8 D (82.0-92.0) fL MCH 24.9 L (27.0-31.0) pg MCHC 28.1 L (32.0-36.0) g/dL RDW 16.2 H (11.5-14.5) % Plt Count 118 L (150-400) 10^3/uL MPV 9.8 (7.4-10.4) fL Immature Gran % (Auto) 3.0 (0.0-5.0) % Neut % (Auto) 71.8 H (50.0-70.0) % Lymph % (Auto) 8.4 L (20.0-40.0) % [place] % (Auto) 16.7 H (2.0-8.0) % Eos % (Auto) 0.0 L (1.0-3.0) % Baso % (Auto) 0.1 (0.0-1.0) % Neut # (Auto) 6.36 (2.50-7.00) 10^3/uL Lymph # (Auto) 0.74 L (1.00-4.00) 10^3/uL [place] # (Auto) 1.48 H (0.10-0.80) 10^3/uL Eos # (Auto) 0.00 L (0.10-0.30) 10^3/uL Baso # (Auto) 0.01 (0.00-0.10) 10^3/uL Immature Gran # (Auto) 0.27 (0.00-0.50) 10^3/uL POC ABG pH (7.35-7.45) pH POC ABG pCO2 (35-48) mmHg POC ABG pO2 (83-108) mmHg POC ABG HCO3 (21-28) mmol/L ABG O2 Sat (Calculated) (94-98) % POC ABG Base Excess (-2-3) mmol/L Sodium (136-145) mmol/L Potassium (3.5-5.1) mmol/L Chloride (98-107) mmol/L Carbon Dioxide (21.0-32.0) mmol/L Anion Gap (5-15) mmol/L BUN (7-18) mg/dL Creatinine (0.51-1.17) mg/dL Est Cr Clr Drug Dosing mL/min Estimated GFR (MDRD) mL/min Glucose (70-140) mg/dL Calcium (8.7-10.3) mg/dL Total Bilirubin (0.2-1.0) mg/dL AST (15-37) U/L ALT (14-63) U/L Alkaline Phosphatase (46-116) U/L Troponin I High Sens (0-51.000) pg/mL B-Natriuretic Peptide (0-100) pg/mL Total Protein (6.4-8.2) g/dL Albumin (3.40-5.00) g/dL SARS CoV-2 RNA Rapid RADHA Negative (NEGATIVE) Blood Type A POSITIVE Gel Antibody Screen Negative Crossmatch See Detail 10/04/20 10/04/20 10/04/20 Range/Units 07:30 16:30 16:46 WBC (5.00-10.00) 10^3/uL RBC (3.80-5.50) 10^6/uL Hgb (12.0-16.0) g/dL Hct (37.0-47.0) % MCV (82.0-92.0) fL MCH (27.0-31.0) pg MCHC (32.0-36.0) g/dL RDW (11.5-14.5) % Plt Count (150-400) 10^3/uL MPV (7.4-10.4) fL Immature Gran % (Auto) (0.0-5.0) % Neut % (Auto) (50.0-70.0) % Lymph % (Auto) (20.0-40.0) % [place] % (Auto) (2.0-8.0) % Eos % (Auto) (1.0-3.0) % Baso % (Auto) (0.0-1.0) % Neut # (Auto) (2.50-7.00) 10^3/uL Lymph # (Auto) (1.00-4.00) 10^3/uL [place] # (Auto) (0.10-0.80) 10^3/uL Eos # (Auto) (0.10-0.30) 10^3/uL Baso # (Auto) (0.00-0.10) 10^3/uL Immature Gran # (Auto) (0.00-0.50) 10^3/uL POC ABG pH 7.2 L* (7.35-7.45) pH POC ABG pCO2 106 H* (35-48) mmHg POC ABG pO2 63 L (83-108) mmHg POC ABG HCO3 39 H (21-28) mmol/L ABG O2 Sat (Calculated) 82.6 L* (94-98) % POC ABG Base Excess 11 H (-2-3) mmol/L Sodium 136 136 (136-145) mmol/L Potassium 5.9 H 6.2 H (3.5-5.1) mmol/L Chloride 97 L 97 L (98-107) mmol/L Carbon Dioxide 37.5 H 38.3 H (21.0-32.0) mmol/L Anion Gap 7.4 6.9 (5-15) mmol/L BUN 14 20 H (7-18) mg/dL Creatinine 0.86 1.27 H (0.51-1.17) mg/dL Est Cr Clr Drug Dosing 39.20 26.55 mL/min Estimated GFR (MDRD) > 60 40 mL/min Glucose 135 154 H (70-140) mg/dL Calcium 8.2 L 8.4 L (8.7-10.3) mg/dL Total Bilirubin 0.7 (0.2-1.0) mg/dL AST 35 (15-37) U/L ALT 44 (14-63) U/L Alkaline Phosphatase 79 (46-116) U/L Troponin I High Sens (0-51.000) pg/mL B-Natriuretic Peptide 988 H (0-100) pg/mL Total Protein 7.5 (6.4-8.2) g/dL Albumin 3.02 L (3.40-5.00) g/dL SARS CoV-2 RNA Rapid RADHA (NEGATIVE) Blood Type Gel Antibody Screen Crossmatch 10/04/20 10/04/20 Range/Units 16:46 16:46 WBC 6.29 (5.00-10.00) 10^3/uL RBC 3.86 (3.80-5.50) 10^6/uL Hgb 9.6 L (12.0-16.0) g/dL Hct 34.8 L (37.0-47.0) % MCV 90.2 (82.0-92.0) fL MCH 24.9 L (27.0-31.0) pg MCHC 27.6 L (32.0-36.0) g/dL RDW 16.5 H (11.5-14.5) % Plt Count 111 L (150-400) 10^3/uL MPV 9.8 (7.4-10.4) fL Immature Gran % (Auto) 3.7 (0.0-5.0) % Neut % (Auto) 72.0 H (50.0-70.0) % Lymph % (Auto) 9.9 L (20.0-40.0) % [place] % (Auto) 14.1 H (2.0-8.0) % Eos % (Auto) 0.0 L (1.0-3.0) % Baso % (Auto) 0.3 (0.0-1.0) % Neut # (Auto) 4.53 (2.50-7.00) 10^3/uL Lymph # (Auto) 0.62 L (1.00-4.00) 10^3/uL [place] # (Auto) 0.89 H (0.10-0.80) 10^3/uL Eos # (Auto) 0.00 L (0.10-0.30) 10^3/uL Baso # (Auto) 0.02 (0.00-0.10) 10^3/uL Immature Gran # (Auto) 0.23 (0.00-0.50) 10^3/uL POC ABG pH (7.35-7.45) pH POC ABG pCO2 (35-48) mmHg POC ABG pO2 (83-108) mmHg POC ABG HCO3 (21-28) mmol/L ABG O2 Sat (Calculated) (94-98) % POC ABG Base Excess (-2-3) mmol/L Sodium (136-145) mmol/L Potassium (3.5-5.1) mmol/L Chloride (98-107) mmol/L Carbon Dioxide (21.0-32.0) mmol/L Anion Gap (5-15) mmol/L BUN (7-18) mg/dL Creatinine (0.51-1.17) mg/dL Est Cr Clr Drug Dosing mL/min Estimated GFR (MDRD) mL/min Glucose (70-140) mg/dL Calcium (8.7-10.3) mg/dL Total Bilirubin (0.2-1.0) mg/dL AST (15-37) U/L ALT (14-63) U/L Alkaline Phosphatase (46-116) U/L Troponin I High Sens 63.500 H* (0-51.000) pg/mL B-Natriuretic Peptide (0-100) pg/mL Total Protein (6.4-8.2) g/dL Albumin (3.40-5.00) g/dL SARS CoV-2 RNA Rapid RADHA (NEGATIVE) Blood Type Gel Antibody Screen Crossmatch Med Orders - Current: Current Medications Albuterol (Albuterol 0.083% 2.5 Mg/3 Ml Neb Soln) 2.5 mg NEB Q4HRRT NOE Last Admin: 10/04/20 13:42 Dose: 2.5 mg Documented by: Gabapentin (Gabapentin 300 Mg Cap) 600 mg PO Q6H NOE Sodium Chloride (Normal Saline) 500 mls @ 100 mls/hr IV ASDIRECTED NOE Discontinued Medications Acetaminophen (Acetaminophen 500 Mg Tab) 1,000 mg PO Q4H PRN PRN Reason: Pain Last Admin: 10/04/20 15:52 Dose: 1,000 mg Documented by: Hydrocodone Bitart/Acetaminophen (Acetaminophen/Hydrocodone 325-5 Mg Tab) 1 tab PO Q6HR PRN PRN Reason: Pain Hydrocodone Bitart/Acetaminophen (Acetaminophen/Hydrocodone 325-5 Mg Tab) 1 tab PO Q6HR PRN PRN Reason: Pain Last Admin: 10/04/20 11:21 Dose: 1 tab Documented by: Albuterol (Albuterol 8 Gm Inhaler) 0 gm INH Q4H PRN PRN Reason: Shortness of Breath Albuterol/Ipratropium (Albuterol/Ipratropium 3.0-0.5 Mg/3 Ml Neb Soln) 3 ml NEB ONETIME ONE Stop: 10/03/20 13:57 Last Admin: 10/03/20 14:02 Dose: 3 ml Documented by: Amlodipine Besylate (Amlodipine 5 Mg Tab) 5 mg PO DAILY [facility] Last Admin: 10/04/20 10:53 Dose: 5 mg Documented by: Diclofenac Sodium (Diclofenac Sodium 75 Mg Tab.Ec) 75 mg PO BID [facility] Last Admin: 10/04/20 10:54 Dose: 75 mg Documented by: Donepezil HCl (Donepezil 10 Mg Tab) 10 mg PO DAILY [facility] Last Admin: 10/04/20 10:48 Dose: 10 mg Documented by: Duloxetine HCl (Duloxetine 30 Mg Cap) 30 mg PO BID [facility] Last Admin: 10/04/20 10:51 Dose: 30 mg Documented by: Famotidine (Famotidine 20 Mg Tab) 20 mg PO DAILY [facility] Last Admin: 10/04/20 10:56 Dose: Not Given Documented by: Furosemide (Furosemide 20 Mg Tab) 20 mg PO DAILY [facility] Last Admin: 10/04/20 10:34 Dose: Not Given Documented by: Furosemide (Furosemide 40 Mg/4 Ml Vial) 20 mg IVPUSH NOW ONE Stop: 10/04/20 01:22 Last Admin: 10/04/20 01:36 Dose: 20 mg Documented by: Furosemide (Furosemide 40 Mg/4 Ml Vial) 40 mg IVPUSH NOW ONE Stop: 10/04/20 09:23 Last Admin: 10/04/20 09:47 Dose: 40 mg Documented by: Furosemide (Furosemide 40 Mg/4 Ml Vial) 40 mg IVPUSH NOW ONE Stop: 10/04/20 16:21 Last Admin: 10/04/20 16:44 Dose: 40 mg Documented by: Gabapentin (Gabapentin 300 Mg Cap) 600 mg PO TID [facility] Last Admin: 10/04/20 10:51 Dose: 600 mg Documented by: Sodium Chloride (Normal Saline) Confirm Administered Dose 1,000 mls @ as directed .ROUTE .STK-MED ONE Stop: 10/03/20 14:17 Last Admin: 10/03/20 14:33 Dose: Not Given Documented by: Sodium Chloride (Normal Saline) 1,000 mls @ 999 mls/hr IV .BOLUS ONE Stop: 10/03/20 15:32 Last Infusion: 10/03/20 15:30 Dose: 100 mls/hr Documented by: Loperamide HCl (Loperamide 2 Mg Cap) 4 mg PO Q6H PRN PRN Reason: Diarrhea Lorazepam (Lorazepam 0.5 Mg Tab) 0.5 mg PO ONETIME ONE Stop: 10/03/20 18:46 Last Admin: 10/03/20 18:46 Dose: 0.5 mg Documented by: Lorazepam (Lorazepam 0.5 Mg Tab) Confirm Administered Dose 0.5 mg .ROUTE .STK- MED ONE Stop: 10/03/20 18:45 Last Admin: 10/03/20 18:47 Dose: Not Given Documented by: Lorazepam (Lorazepam 0.5 Mg Tab) 0.5 mg PO ONETIME ONE Stop: 10/03/20 20:50 Last Admin: 10/03/20 21:06 Dose: 0.5 mg Documented by: Losartan Potassium (Losartan 50 Mg Tab) 100 mg PO DAILY [facility] Last Admin: 10/04/20 10:34 Dose: Not Given Documented by: Melatonin (Melatonin 3 Mg Tab) 3 mg PO BEDTIME [facility] Last Admin: 10/03/20 21:05 Dose: 3 mg Documented by: Metoprolol Tartrate (Metoprolol Tartrate 50 Mg Tab) 50 mg PO BID [facility] Last Admin: 10/04/20 10:54 Dose: 50 mg Documented by: Multivitamins/Minerals (Multivitamins With Minerals/Iron/Folic Acid/Lycopene Tab) 1 tab PO DAILY [facility] Last Admin: 10/04/20 10:34 Dose: Not Given Documented by: (Nortriptyline Hcl [ Pamelor] 10 Mg Capsule)Own Med * 30 mg PO BEDTIME [facility] Prochlorperazine Maleate (Prochlorperazine 5 Mg Tab) 5 mg PO Q6H PRN PRN Reason: Nausea Simvastatin (Simvastatin 20 Mg Tab) 20 mg PO BEDTIME [facility] Last Admin: 10/03/20 21:04 Dose: 20 mg Documented by: Tramadol HCl (Tramadol 50 Mg Tab) 50 mg PO TID [facility] Last Admin: 10/04/20 10:52 Dose: 50 mg Documented by: Tramadol HCl (Tramadol 50 Mg Tab) 50 mg PO Q6H [facility] - Exam Quality Assessment: Supplemental Oxygen General: Lethargic, Obtunded HEENT: Pupils Equal Lungs: Crackles, Rales, Rhonchi Cardiovascular: Regular Rhythm, Bradycardia GI/Abdominal Exam: Soft Skin: Dry, Cool - Patient Data Lab Results Last 24 hrs: Laboratory Results - last 24 hr 10/03/20 10/03/20 10/04/20 Range/Units 15:30 17:45 07:30 WBC 8.86 (5.00-10.00) 10^3/uL RBC 4.29 (3.80-5.50) 10^6/uL Hgb 10.7 L D (12.0-16.0) g/dL Hct 38.1 (37.0-47.0) % MCV 88.8 D (82.0-92.0) fL MCH 24.9 L (27.0-31.0) pg MCHC 28.1 L (32.0-36.0) g/dL RDW 16.2 H (11.5-14.5) % Plt Count 118 L (150-400) 10^3/uL MPV 9.8 (7.4-10.4) fL Immature Gran % (Auto) 3.0 (0.0-5.0) % Neut % (Auto) 71.8 H (50.0-70.0) % Lymph % (Auto) 8.4 L (20.0-40.0) % [place] % (Auto) 16.7 H (2.0-8.0) % Eos % (Auto) 0.0 L (1.0-3.0) % Baso % (Auto) 0.1 (0.0-1.0) % Neut # (Auto) 6.36 (2.50-7.00) 10^3/uL Lymph # (Auto) 0.74 L (1.00-4.00) 10^3/uL [place] # (Auto) 1.48 H (0.10-0.80) 10^3/uL Eos # (Auto) 0.00 L (0.10-0.30) 10^3/uL Baso # (Auto) 0.01 (0.00-0.10) 10^3/uL Immature Gran # (Auto) 0.27 (0.00-0.50) 10^3/uL POC ABG pH (7.35-7.45) pH POC ABG pCO2 (35-48) mmHg POC ABG pO2 (83-108) mmHg POC ABG HCO3 (21-28) mmol/L ABG O2 Sat (Calculated) (94-98) % POC ABG Base Excess (-2-3) mmol/L Sodium (136-145) mmol/L Potassium (3.5-5.1) mmol/L Chloride (98-107) mmol/L Carbon Dioxide (21.0-32.0) mmol/L Anion Gap (5-15) mmol/L BUN (7-18) mg/dL Creatinine (0.51-1.17) mg/dL Est Cr Clr Drug Dosing mL/min Estimated GFR (MDRD) mL/min Glucose (70-140) mg/dL Calcium (8.7-10.3) mg/dL Total Bilirubin (0.2-1.0) mg/dL AST (15-37) U/L ALT (14-63) U/L Alkaline Phosphatase (46-116) U/L Troponin I High Sens (0-51.000) pg/mL B-Natriuretic Peptide (0-100) pg/mL Total Protein (6.4-8.2) g/dL Albumin (3.40-5.00) g/dL SARS CoV-2 RNA Rapid RADHA Negative (NEGATIVE) Blood Type A POSITIVE Gel Antibody Screen Negative Crossmatch See Detail 10/04/20 10/04/20 10/04/20 Range/Units 07:30 16:30 16:46 WBC (5.00-10.00) 10^3/uL RBC (3.80-5.50) 10^6/uL Hgb (12.0-16.0) g/dL Hct (37.0-47.0) % MCV (82.0-92.0) fL MCH (27.0-31.0) pg MCHC (32.0-36.0) g/dL RDW (11.5-14.5) % Plt Count (150-400) 10^3/uL MPV (7.4-10.4) fL Immature Gran % (Auto) (0.0-5.0) % Neut % (Auto) (50.0-70.0) % Lymph % (Auto) (20.0-40.0) % [place] % (Auto) (2.0-8.0) % Eos % (Auto) (1.0-3.0) % Baso % (Auto) (0.0-1.0) % Neut # (Auto) (2.50-7.00) 10^3/uL Lymph # (Auto) (1.00-4.00) 10^3/uL [place] # (Auto) (0.10-0.80) 10^3/uL Eos # (Auto) (0.10-0.30) 10^3/uL Baso # (Auto) (0.00-0.10) 10^3/uL Immature Gran # (Auto) (0.00-0.50) 10^3/uL POC ABG pH 7.2 L* (7.35-7.45) pH POC ABG pCO2 106 H* (35-48) mmHg POC ABG pO2 63 L (83-108) mmHg POC ABG HCO3 39 H (21-28) mmol/L ABG O2 Sat (Calculated) 82.6 L* (94-98) % POC ABG Base Excess 11 H (-2-3) mmol/L Sodium 136 136 (136-145) mmol/L Potassium 5.9 H 6.2 H (3.5-5.1) mmol/L Chloride 97 L 97 L (98-107) mmol/L Carbon Dioxide 37.5 H 38.3 H (21.0-32.0) mmol/L Anion Gap 7.4 6.9 (5-15) mmol/L BUN 14 20 H (7-18) mg/dL Creatinine 0.86 1.27 H (0.51-1.17) mg/dL Est Cr Clr Drug Dosing 39.20 26.55 mL/min Estimated GFR (MDRD) > 60 40 mL/min Glucose 135 154 H (70-140) mg/dL Calcium 8.2 L 8.4 L (8.7-10.3) mg/dL Total Bilirubin 0.7 (0.2-1.0) mg/dL AST 35 (15-37) U/L ALT 44 (14-63) U/L Alkaline Phosphatase 79 (46-116) U/L Troponin I High Sens (0-51.000) pg/mL B-Natriuretic Peptide 988 H (0-100) pg/mL Total Protein 7.5 (6.4-8.2) g/dL Albumin 3.02 L (3.40-5.00) g/dL SARS CoV-2 RNA Rapid RADHA (NEGATIVE) Blood Type Gel Antibody Screen Crossmatch 10/04/20 10/04/20 Range/Units 16:46 16:46 WBC 6.29 (5.00-10.00) 10^3/uL RBC 3.86 (3.80-5.50) 10^6/uL Hgb 9.6 L (12.0-16.0) g/dL Hct 34.8 L (37.0-47.0) % MCV 90.2 (82.0-92.0) fL MCH 24.9 L (27.0-31.0) pg MCHC 27.6 L (32.0-36.0) g/dL RDW 16.5 H (11.5-14.5) % Plt Count 111 L (150-400) 10^3/uL MPV 9.8 (7.4-10.4) fL Immature Gran % (Auto) 3.7 (0.0-5.0) % Neut % (Auto) 72.0 H (50.0-70.0) % Lymph % (Auto) 9.9 L (20.0-40.0) % [place] % (Auto) 14.1 H (2.0-8.0) % Eos % (Auto) 0.0 L (1.0-3.0) % Baso % (Auto) 0.3 (0.0-1.0) % Neut # (Auto) 4.53 (2.50-7.00) 10^3/uL Lymph # (Auto) 0.62 L (1.00-4.00) 10^3/uL [place] # (Auto) 0.89 H (0.10-0.80) 10^3/uL Eos # (Auto) 0.00 L (0.10-0.30) 10^3/uL Baso # (Auto) 0.02 (0.00-0.10) 10^3/uL Immature Gran # (Auto) 0.23 (0.00-0.50) 10^3/uL POC ABG pH (7.35-7.45) pH POC ABG pCO2 (35-48) mmHg POC ABG pO2 (83-108) mmHg POC ABG HCO3 (21-28) mmol/L ABG O2 Sat (Calculated) (94-98) % POC ABG Base Excess (-2-3) mmol/L Sodium (136-145) mmol/L Potassium (3.5-5.1) mmol/L Chloride (98-107) mmol/L Carbon Dioxide (21.0-32.0) mmol/L Anion Gap (5-15) mmol/L BUN (7-18) mg/dL Creatinine (0.51-1.17) mg/dL Est Cr Clr Drug Dosing mL/min Estimated GFR (MDRD) mL/min Glucose (70-140) mg/dL Calcium (8.7-10.3) mg/dL Total Bilirubin (0.2-1.0) mg/dL AST (15-37) U/L ALT (14-63) U/L Alkaline Phosphatase (46-116) U/L Troponin I High Sens 63.500 H* (0-51.000) pg/mL B-Natriuretic Peptide (0-100) pg/mL Total Protein (6.4-8.2) g/dL Albumin (3.40-5.00) g/dL SARS CoV-2 RNA Rapid RADHA (NEGATIVE) Blood Type Gel Antibody Screen Crossmatch Result Diagrams: 10/04/20 16:46 10/04/20 16:46 Sepsis Event Note - Evaluation Sepsis Screening Result: No Definite Risk - Focused Exam Vital Signs: Vital Signs Temp Pulse Pulse Resp BP BP Pulse Ox 10/04/20 15:00 35.9 C L 55 L 18 97/73 88 L 10/04/20 10:54 68 118/49 L 10/04/20 10:53 118/49 L 10/04/20 10:42 35.8 C L 68 16 119/46 L 93 L 10/04/20 09:00 10/04/20 06:22 36.4 C 56 L 22 H 121/46 L 91 L Pulse Ox 10/04/20 15:00 10/04/20 10:54 10/04/20 10:53 10/04/20 10:42 10/04/20 09:00 91 L 10/04/20 06:22 - Problem List Review Problem List Initiated/Reviewed/Updated: Yes - My Orders Last 24 Hours: My Active Orders 10/04/20 17:22 BIPAP Adult [RT BiPAP/CPAP] [RC] ASDIRECTED 10/04/20 17:34 Morphine 2 mg IVPUSH Q1H PRN 10/04/20 17:35 LORazepam [Ativan] 1 mg IVPUSH Q2H PRN 10/04/20 17:35 Glycopyrrolate [Robinul] 0.2 mg IVPUSH Q1H PRN 10/04/20 17:36 Resuscitation Status Routine - Assessment Assessment:: HPI Summary: Mrs. Castanon is an 85yoF with a complex medical history most notable for chronic respiratory failure and small cell lymphoma who was admitted into inpatient status due to worsened shortness of breath and hypoxia. She had initially presented to the ED ~12hrs prior with shortness of breath and was treated with a DuoNeb and released home, however it was noted by the home health aide that her oxygen saturations were 89% on 4 L despite DuoNebs and was advised to return return back to ED. Was recently discharged from [facility] last week when she came in for increased weakness and shortness of breath that she had been having for a few days prior. At that time her chest x-ray showed no acute p rocess. She was admitted with orders for a blood transfusion, but noted by admitting team that she was at her baseline hemoglobin and blood was not given. ED course: Isotonic saline 1000 L bolus Crders to transfuse Chest x-ray, @0200--comparison, September 26; interstitial edema with trace bilateral effusions, stable cardiomegaly. Repeated same day 1430 mild to moderate bilateral interstitial edema have increased. Hospital course: 10/04/2020: rn recovery provider was notified ~midnight regarding shortness of breath, orders for 20 mg Lasix given. Little output thereafter. BNP elevated from 513 to 988. On morning rounds, patient was significantly agitated, thrashing around in bed, hollering, uncooperative--ameliorated with soothing talking measures. 10/04/20 PM: See HPI for interval details, including progressive decline in patient status and family desire to change to comfort measures only. Hospitalization diagnoses: # Respiratory acidosis # Acute on chronic hypoxic and hypercapnic respiratory failure # Elevated troponin # Hyperkalemia # Oliguria # Pancytopenia # Small cell lymphoma Chronic conditions: # Right hemidiaphragm paralysis # Obstructive sleep apnea # Obstructive lung disease # Granulomatous lung disease # Pulmonary nodules # Hypertension # Heart failure with preserved ejection fraction # Hepatic steatosis # Transaminitis # Constipation # GERD # Urinary incontinence # Hyperlipidemia # Colloid cyst of 3rd ventricle # Hydocephalus #Osteoporosis # T11 compression fracture # History L wrist fracture # Osteoarthritis # Lumbar degenerative disc disease # Chronic painsyndrome # Restless leg syndrome # Neuropathy # Depression # Insomnia # Dementia Plan: - Change code status to comfort measures only - Discontinue oral medications - Morphine prn for pain - Lorazepam prn for agitation - Glycopyrrolate prn for secretions - Other comfort cares with repositioning and oral cares - Family support Disposition: Continue inpatient status. Anticipate progressive course.
[2020-10-04] MEDS: Morphine 2 MG/ML SYRINGE IVPUSH PRN ×3 (18:46→21:00)
[2020-10-04] MEDS ORDERED: Albuterol 0.083% 2.5 MG/3 ML Neb Soln NEB PRN (19:57)
[2020-10-04] MEDS: LORazepam 2 MG/ML SDV IVPUSH PRN (22:20)
[2020-10-05] MEDS: Morphine 2 MG/ML SYRINGE IVPUSH PRN ×6 (00:23→13:51)
[2020-10-05] MEDS: LORazepam 2 MG/ML SDV IVPUSH PRN ×2 (02:33→06:17)
[2020-10-05] MEDS ORDERED: Sodium Chloride 0.9% 10 ML Syringe FLUSH PRN (06:07)
[2020-10-05 06:31] VITALS: PULSE 60
[2020-10-05 06:38] VITALS: BP 96/38
--- NOTE | 2020-10-05 14:57 | PCM.DCSUM1 ---
Discharge Summary - Hospital Course HPI Initial Comments: Date of admission: 10/03/20 Date of discharge/: 10/05/20 Admission diagnoses: # Respiratory acidosis # Acute on chronic hypoxic and hypercapnic respiratory failure # Elevated troponin # Hyperkalemia # Oliguria # Pancytopenia # Small cell lymphoma Discharge diagnoses: # Multi-system organ failure resulting in . # Respiratory acidosis # Acute on chronic hypoxic and hypercapnic respiratory failure # Elevated troponin # Hyperkalemia # Oliguria # Pancytopenia # Small cell lymphoma Chronic conditions: # Right hemidiaphragm paralysis # Obstructive sleep apnea # Obstructive lung disease # Granulomatous lung disease # Pulmonary nodules # Hypertension # Heart failure with preserved ejection fraction # Hepatic steatosis # Transaminitis # Constipation # GERD # Urinary incontinence # Hyperlipidemia # Colloid cyst of 3rd ventricle # Hydocephalus #Osteoporosis # T11 compression fracture # History L wrist fracture # Osteoarthritis # Lumbar degenerative disc disease # Chronic painsyndrome # Restless leg syndrome # Neuropathy # Depression # Insomnia # Dementia Consultations: None Procedures: None HPI Summary: Mrs. Castanon is an 85yoF with a complex medical history most notable for chronic respiratory failure and small cell lymphoma who was admitted into inpatient status due to worsened shortness of breath and hypoxia. She had initially presented to the ED ~12hrs prior with shortness of breath and was treated with a DuoNeb and released home, however it was noted by the home health aide that her oxygen saturations were 89% on 4 L despite DuoNebs and was advised to return back to ED. Was recently discharged from [facility] last week when she came in for increased weakness and shortness of breath that she had been having for a few days prior. At that time her chest x-ray showed no acute process. She was admitted with orders for a blood transfusion, but noted by admitting team that she was at her baseline hemoglobin and blood was not given. ED course: Isotonic saline 1000 L bolus Orders to transfuse Chest x-ray, 10/03/2020 @0200--comparison, September 26; interstitial edema with trace bilateral effusions, stable cardiomegaly. Repeated same day 1430 mild to moderate bilateral interstitial edema have increased. Hospital course: 10/04/2020: call or contact centre operator provider was notified ~midnight regarding shortness of breath, orders for 20 mg Lasix given. Little output thereafter. BNP elevated from 513 to 988. On morning rounds, patient was significantly agitated, thrashing around in bed, hollering, uncooperative--ameliorated with soothing talking measures. 10/04/20 PM: See HPI for interval details, including progressive decline in patient status and family desire to change to comfort measures only. HPI: Notified by rounding provider, Ronan Cazares APRN-MECCA, and nursing staff of patient's progressively declining status. ABG and labs had been ordered by rounding provider to reassess and were notable for ABG 7.2/106/63-39, potassium of 6.2 with declining creatinine with minimal urine output despite overloaded s tatus and furosemide 100mg IV in the past 24hrs. Arrived at bedside at 1655 noting patient to be sitting in bedside chair and minimally responsive, but appearing comfortable. , Efrain, at bedside provided history that patient has been declining, most notably in the past month and more rapidly in the past couple weeks and days. He was at bedside this morning when patient was extremely agitated and he endorsed that situations with increased confusion have been happening more often lately. He also endorsed that in the past month, she has been talking about wanting to see her friends and family who have previously . When discussing her current status, he inquired, "Do we have to keep poking her anymore?" and endorsed awareness that she was dying. He readily endorsed knowing her wishes to not have any heroic measures and firmly states that her code status is DNR/DNI. He states that they have had many conversations over the years and he is confident that if she were to be able to freely talk to us right now, she would wish for her primary goal to be provided comfort and not have interventions. Discussed comfort care measures and provided support. Sat with patient when he called one of their daughters and their son; discussed patient's critical status and answered questions. Their three children are all planning to arrive at the hospital later this evening or tomorrow morning. 10/05/20: No calls overnight. Patient receiving round the clock morphine and lorazepam. Bi-pap removed this AM per 's request. Oxygen via nasal cannula at present. Patient resting comfortably. Received phone call from nurse around 1415 that patient had . Discharge: - Discharge to home. - Provide family support. - Discharge Data Discharge Date: 10/05/20 Discharge Disposition: 20 Preliminary Cause of *Q: Multi System Organ Failure Event(s) Leading to Patient's *Q: # Respiratory acidosis. # Acute on chronic hypoxic and hypercapnic respiratory failure. # Elevated troponin. # Hyperkalemia. # Oliguria. # Pancytopenia. # Small cell lymphoma Condition: - Referral to Home Health Primary Care Physician: Luz Rizzo MD - Discharge Plan *PRESCRIPTION DRUG MONITORING PROGRAM REVIEWED*: Not Applicable *COPY OF PRESCRIPTION DRUG MONITORING REPORT IN PATIENT TO: Not Applicable Home Medications: Home Meds Multivit-Min/Iron/Folic/Lutein [Centrum Silver Women Tablet] 1 each PO DAILY 03/23/16 [History] Simvastatin 20 mg PO BEDTIME 03/23/16 [History] Acetaminophen [Tylenol Extra Strength] 1,000 mg PO Q4H PRN 09/17/17 [History] Diclofenac Sodium [Voltaren] 75 mg PO BID 09/17/17 [History] Metoprolol Tartrate 50 mg PO BID 09/17/17 [History] Losartan [Cozaar] 100 mg PO DAILY 10/27/18 [History] Albuterol Sulfate [Albuterol Sulfate Hfa] 2 puff INH Q4H PRN 03/29/19 [History] Revefenacin [Yupelri] 3 ml INH DAILY 03/29/19 [History] amLODIPine [Norvasc] 5 mg PO DAILY 03/29/19 [History] Acalabrutinib [Calquence] 100 mg PO BID 09/27/20 [History] DULoxetine HCl [Duloxetine HCl] 30 mg PO BID 09/27/20 [History] Donepezil HCl 10 mg PO DAILY 09/27/20 [History] Famotidine 20 mg PO DAILY 09/27/20 [History] Furosemide [Lasix] 20 mg PO DAILY 09/27/20 [History] Gabapentin [Neurontin] 600 mg PO TID cap 09/27/20 [Rx] Hydrocodone/Acetaminophen [Vicodin Hp 10-300 mg Tablet] 5 - 325 mg PO Q6HR PRN 09/27/20 [History] Loperamide [Imodium] 4 mg PO Q6H PRN #30 cap 09/27/20 [Rx] Nortriptyline HCl [Pamelor] 30 mg PO DAILY 09/27/20 [History] Prochlorperazine [Compazine] 5 mg PO Q6H PRN 10/03/20 [History] traMADol [Ultram] 50 mg PO Q6H 10/03/20 [History] Referrals: Luz Rizzo MD [Primary Care Provider] - - Discharge Summary/Plan Comment DC Time >30 min.: No - General Info Date of Service: 10/05/20 Subjective Update: Patient unresponsive. at bedside. Feels she has been kept comfortable overnight. He requested the bi-pap be removed this morning. - Patient Data Vitals - Most Recent: Last Vital Signs Temp 96.2 F L 10/04/20 23:00 Pulse 60 10/05/20 06:31 Resp 16 10/04/20 23:00 BP 96/38 L 10/05/20 06:37 Pulse Ox 66 L 10/05/20 06:37 Weight - Most Recent: 146 lb 11.2 oz I&O - Last 24 hours: Intake & Output 10/04/20 10/05/20 10/05/20 22:59 06:59 14:59 Intake Total 300 0 0 Output Total 0 Balance 300 0 0 Lab Results - Last 24 hrs: Laboratory Results - last 24 hr 10/04/20 10/04/20 10/04/20 Range/Units 16:30 16:46 16:46 WBC 6.29 (5.00-10.00) 10^3/uL RBC 3.86 (3.80-5.50) 10^6/uL Hgb 9.6 L (12.0-16.0) g/dL Hct 34.8 L (37.0-47.0) % MCV 90.2 (82.0-92.0) fL MCH 24.9 L (27.0-31.0) pg MCHC 27.6 L (32.0-36.0) g/dL RDW 16.5 H (11.5-14.5) % Plt Count 111 L (150-400) 10^3/uL MPV 9.8 (7.4-10.4) fL Immature Gran % (Auto) 3.7 (0.0-5.0) % Neut % (Auto) 72.0 H (50.0-70.0) % Lymph % (Auto) 9.9 L (20.0-40.0) % Bulloch % (Auto) 14.1 H (2.0-8.0) % Eos % (Auto) 0.0 L (1.0-3.0) % Baso % (Auto) 0.3 (0.0-1.0) % Neut # (Auto) 4.53 (2.50-7.00) 10^3/uL Lymph # (Auto) 0.62 L (1.00-4.00) 10^3/uL Bulloch # (Auto) 0.89 H (0.10-0.80) 10^3/uL Eos # (Auto) 0.00 L (0.10-0.30) 10^3/uL Baso # (Auto) 0.02 (0.00-0.10) 10^3/uL Immature Gran # (Auto) 0.23 (0.00-0.50) 10^3/uL POC ABG pH 7.2 L* (7.35-7.45) pH POC ABG pCO2 106 H* (35-48) mmHg POC ABG pO2 63 L (83-108) mmHg POC ABG HCO3 39 H (21-28) mmol/L ABG O2 Sat (Calculated) 82.6 L* (94-98) % POC ABG Base Excess 11 H (-2-3) mmol/L Sodium 136 (136-145) mmol/L Potassium 6.2 H (3.5-5.1) mmol/L Chloride 97 L (98-107) mmol/L Carbon Dioxide 38.3 H (21.0-32.0) mmol/L Anion Gap 6.9 (5-15) mmol/L BUN 20 H (7-18) mg/dL Creatinine 1.27 H (0.51-1.17) mg/dL Est Cr Clr Drug Dosing 26.55 mL/min Estimated GFR (MDRD) 40 mL/min Glucose 154 H (70-140) mg/dL Calcium 8.4 L (8.7-10.3) mg/dL Troponin I High Sens (0-51.000) pg/mL 10/04/20 Range/Units 16:46 WBC (5.00-10.00) 10^3/uL RBC (3.80-5.50) 10^6/uL Hgb (12.0-16.0) g/dL Hct (37.0-47.0) % MCV (82.0-92.0) fL MCH (27.0-31.0) pg MCHC (32.0-36.0) g/dL RDW (11.5-14.5) % Plt Count (150-400) 10^3/uL MPV (7.4-10.4) fL Immature Gran % (Auto) (0.0-5.0) % Neut % (Auto) (50.0-70.0) % Lymph % (Auto) (20.0-40.0) % Bulloch % (Auto) (2.0-8.0) % Eos % (Auto) (1.0-3.0) % Baso % (Auto) (0.0-1.0) % Neut # (Auto) (2.50-7.00) 10^3/uL Lymph # (Auto) (1.00-4.00) 10^3/uL Bulloch # (Auto) (0.10-0.80) 10^3/uL Eos # (Auto) (0.10-0.30) 10^3/uL Baso # (Auto) (0.00-0.10) 10^3/uL Immature Gran # (Auto) (0.00-0.50) 10^3/uL POC ABG pH (7.35-7.45) pH POC ABG pCO2 (35-48) mmHg POC ABG pO2 (83-108) mmHg POC ABG HCO3 (21-28) mmol/L ABG O2 Sat (Calculated) (94-98) % POC ABG Base Excess (-2-3) mmol/L Sodium (136-145) mmol/L Potassium (3.5-5.1) mmol/L Chloride (98-107) mmol/L Carbon Dioxide (21.0-32.0) mmol/L Anion Gap (5-15) mmol/L BUN (7-18) mg/dL Creatinine (0.51-1.17) mg/dL Est Cr Clr Drug Dosing mL/min Estimated GFR (MDRD) mL/min Glucose (70-140) mg/dL Calcium (8.7-10.3) mg/dL Troponin I High Sens 63.500 H* (0-51.000) pg/mL Med Orders - Current: Current Medications Albuterol (Albuterol 0.083% 2.5 Mg/3 Ml Neb Soln) 2.5 mg NEB Q4HRRT PRN PRN Reason: Shortness of Breath Glycopyrrolate (Glycopyrrolate 0.2 Mg/Ml Sdv) 0.2 mg IVPUSH Q1H PRN PRN Reason: secretions Lorazepam (Lorazepam 2 Mg/Ml Sdv) 1 mg IVPUSH Q2H PRN PRN Reason: Agitation Last Admin: 10/05/20 06:17 Dose: 1 mg Documented by: Morphine Sulfate (Morphine 2 Mg/Ml Syringe) 2 mg IVPUSH Q1H PRN PRN Reason: Pain Last Admin: 10/05/20 13:51 Dose: 2 mg Documented by: Sodium Chloride (Sodium Chloride 0.9% 10 Ml Syringe) 10 ml FLUSH ASDIRECTED PRN PRN Reason: IV Use Last Admin: 10/05/20 06:15 Dose: 10 ml Documented by: Discontinued Medications Acetaminophen (Acetaminophen 500 Mg Tab) 1,000 mg PO Q4H PRN PRN Reason: Pain Last Admin: 10/04/20 15:52 Dose: 1,000 mg Documented by: Hydrocodone Bitart/Acetaminophen (Acetaminophen/Hydrocodone 325-5 Mg Tab) 1 tab PO Q6HR PRN PRN Reason: Pain Hydrocodone Bitart/Acetaminophen (Acetaminophen/Hydrocodone 325-5 Mg Tab) 1 tab PO Q6HR PRN PRN Reason: Pain Last Admin: 10/04/20 11:21 Dose: 1 tab Documented by: Albuterol (Albuterol 8 Gm Inhaler) 0 gm INH Q4H PRN PRN Reason: Shortness of Breath Albuterol (Albuterol 0.083% 2.5 Mg/3 Ml Neb Soln) 2.5 mg NEB Q4HRRT [facility] Last Admin: 10/04/20 18:46 Dose: Not Given Documented by: Albuterol/Ipratropium (Albuterol/Ipratropium 3.0-0.5 Mg/3 Ml Neb Soln) 3 ml NEB ONETIME ONE Stop: 10/03/20 13:57 Last Admin: 10/03/20 14:02 Dose: 3 ml Documented by: Amlodipine Besylate (Amlodipine 5 Mg Tab) 5 mg PO DAILY [facility] Last Admin: 10/04/20 10:53 Dose: 5 mg Documented by: Diclofenac Sodium (Diclofenac Sodium 75 Mg Tab.Ec) 75 mg PO BID [facility] Last Admin: 10/04/20 10:54 Dose: 75 mg Documented by: Donepezil HCl (Donepezil 10 Mg Tab) 10 mg PO DAILY [facility] Last Admin: 10/04/20 10:48 Dose: 10 mg Documented by: Duloxetine HCl (Duloxetine 30 Mg Cap) 30 mg PO BID [facility] Last Admin: 10/04/20 10:51 Dose: 30 mg Documented by: Famotidine (Famotidine 20 Mg Tab) 20 mg PO DAILY [facility] Last Admin: 10/04/20 10:56 Dose: Not Given Documented by: Furosemide (Furosemide 20 Mg Tab) 20 mg PO DAILY [facility] Last Admin: 10/04/20 10:34 Dose: Not Given Documented by: Furosemide (Furosemide 40 Mg/4 Ml Vial) 20 mg IVPUSH NOW ONE Stop: 10/04/20 01:22 Last Admin: 10/04/20 01:36 Dose: 20 mg Documented by: Furosemide (Furosemide 40 Mg/4 Ml Vial) 40 mg IVPUSH NOW ONE Stop: 10/04/20 09:23 Last Admin: 10/04/20 09:47 Dose: 40 mg Documented by: Furosemide (Furosemide 40 Mg/4 Ml Vial) 40 mg IVPUSH NOW ONE Stop: 10/04/20 16:21 Last Admin: 10/04/20 16:44 Dose: 40 mg Documented by: Gabapentin (Gabapentin 300 Mg Cap) 600 mg PO TID [facility] Last Admin: 10/04/20 18:40 Dose: Not Given Documented by: Gabapentin (Gabapentin 300 Mg Cap) 600 mg PO Q6H [facility] Last Admin: 10/04/20 18:40 Dose: Not Given Documented by: Sodium Chloride (Normal Saline) Confirm Administered Dose 1,000 mls @ as directed .ROUTE .STK-MED ONE Stop: 10/03/20 14:17 Last Admin: 10/03/20 14:33 Dose: Not Given Documented by: Sodium Chloride (Normal Saline) 1,000 mls @ 999 mls/hr IV .BOLUS ONE Stop: 10/03/20 15:32 Last Infusion: 10/03/20 15:30 Dose: 100 mls/hr Documented by: Sodium Chloride (Normal Saline) 500 mls @ 100 mls/hr IV ASDIRECTED [facility] Loperamide HCl (Loperamide 2 Mg Cap) 4 mg PO Q6H PRN PRN Reason: Diarrhea Lorazepam (Lorazepam 0.5 Mg Tab) 0.5 mg PO ONETIME ONE Stop: 10/03/20 18:46 Last Admin: 10/03/20 18:46 Dose: 0.5 mg Documented by: Lorazepam (Lorazepam 0.5 Mg Tab) Confirm Administered Dose 0.5 mg .ROUTE .STK- MED ONE Stop: 10/03/20 18:45 Last Admin: 10/03/20 18:47 Dose: Not Given Documented by: Lorazepam (Lorazepam 0.5 Mg Tab) 0.5 mg PO ONETIME ONE Stop: 10/03/20 20:50 Last Admin: 10/03/20 21:06 Dose: 0.5 mg Documented by: Losartan Potassium (Losartan 50 Mg Tab) 100 mg PO DAILY [facility] Last Admin: 10/04/20 10:34 Dose: Not Given Documented by: Melatonin (Melatonin 3 Mg Tab) 3 mg PO BEDTIME [facility] Last Admin: 10/03/20 21:05 Dose: 3 mg Documented by: Metoprolol Tartrate (Metoprolol Tartrate 50 Mg Tab) 50 mg PO BID [facility] Last Admin: 10/04/20 10:54 Dose: 50 mg Documented by: Multivitamins/Minerals (Multivitamins With Minerals/Iron/Folic Acid/Lycopene Tab) 1 tab PO DAILY [facility] Last Admin: 10/04/20 10:34 Dose: Not Given Documented by: (Nortriptyline Hcl [ Pamelor] 10 Mg Capsule)Own Med * 30 mg PO BEDTIME [facility] Prochlorperazine Maleate (Prochlorperazine 5 Mg Tab) 5 mg PO Q6H PRN PRN Reason: Nausea Simvastatin (Simvastatin 20 Mg Tab) 20 mg PO BEDTIME [facility] Last Admin: 10/03/20 21:04 Dose: 20 mg Documented by: Tramadol HCl (Tramadol 50 Mg Tab) 50 mg PO TID [facility] Last Admin: 10/04/20 18:40 Dose: Not Given Documented by: Tramadol HCl (Tramadol 50 Mg Tab) 50 mg PO Q6H [facility] Last Admin: 10/04/20 18:40 Dose: Not Given Documented by: - Exam Quality Assessment: Reports: Supplemental Oxygen General: Reports: Obtunded Lungs: Reports: Clear to Auscultation, Normal Respiratory Effort Cardiovascular: Reports: Regular Rate, Regular Rhythm Extremities: No: Pedal Edema, Mottled Skin: Reports: Cool, Moist Psy/Mental Status: Denies: Alert
== END 2020-10-05 14:13 | disposition expired | DRG 840 ==
LOC: KA.ED 13:36 → KA.MS 17:38
PROVIDERS: ADMIT Nurse Practitioner Family; ATTEND Family Medicine
PROC: 30233N1 Transfusion of Nonautologous Red Blood Cells into Peripheral Vein, Percutaneous Approach (ICD-10-PCS; principal; 2020-10-03)
DX: J18.9 Pneumonia, unspecified organism (principal); C85.90 Non-Hodgkin lymphoma, unspecified, unspecified site; J96.21 Acute and chronic respiratory failure with hypoxia; I50.33 Acute on chronic diastolic (congestive) heart failure; J96.22 Acute and chronic respiratory failure with hypercapnia; R09.02 Hypoxemia; E87.2 Acidosis; Q04.6 Congenital cerebral cysts; G91.9 Hydrocephalus, unspecified; D61.818 Other pancytopenia; C95.90 Leukemia, unspecified not having achieved remission; Z20.822 Contact with and (suspected) exposure to COVID-19; Z51.5 Encounter for palliative care; Z66 Do not resuscitate; F29 Unspecified psychosis not due to a substance or known physiological condition; E87.5 Hyperkalemia; R34 Anuria and oliguria; J98.6 Disorders of diaphragm; G47.33 Obstructive sleep apnea (adult) (pediatric); R06.00 Dyspnea, unspecified; J44.9 Chronic obstructive pulmonary disease, unspecified; K76.0 Fatty (change of) liver, not elsewhere classified; R74.01 Elevation of levels of liver transaminase levels; K21.9 Gastro-esophageal reflux disease without esophagitis; E78.5 Hyperlipidemia, unspecified; M81.0 Age-related osteoporosis without current pathological fracture; M48.54XD Collapsed vertebra, not elsewhere classified, thoracic region, subsequent encounter for fracture with routine healing; D64.9 Anemia, unspecified; G89.4 Chronic pain syndrome; H54.7 Unspecified visual loss; I50.9 Heart failure, unspecified; I11.0 Hypertensive heart disease with heart failure; J44.0 Chronic obstructive pulmonary disease with (acute) lower respiratory infection; G47.00 Insomnia, unspecified; F03.90 Unspecified dementia, unspecified severity, without behavioral disturbance, psychotic disturbance, mood disturbance, and anxiety; R77.8 Other specified abnormalities of plasma proteins; K59.09 Other constipation; M19.90 Unspecified osteoarthritis, unspecified site; R91.8 Other nonspecific abnormal finding of lung field; K80.20 Calculus of gallbladder without cholecystitis without obstruction; D75.89 Other specified diseases of blood and blood-forming organs; M51.16 Intervertebral disc disorders with radiculopathy, lumbar region; K57.90 Diverticulosis of intestine, part unspecified, without perforation or abscess without bleeding; R53.81 Other malaise; N39.46 Mixed incontinence; R29.6 Repeated falls; F41.9 Anxiety disorder, unspecified; G25.81 Restless legs syndrome; Z83.3 Family history of diabetes mellitus; Z87.81 Personal history of (healed) traumatic fracture; G62.9 Polyneuropathy, unspecified; F32.9 Major depressive disorder, single episode, unspecified; Z87.01 Personal history of pneumonia (recurrent); Z98.49 Cataract extraction status, unspecified eye; Z90.49 Acquired absence of other specified parts of digestive tract; Z90.710 Acquired absence of both cervix and uterus; Z98.890 Other specified postprocedural states; Z99.81 Dependence on supplemental oxygen; Z88.2 Allergy status to sulfonamides; Z79.899 Other long term (current) drug therapy
CPT/HCPCS: 36415; 36430; 36600; 71045; 71046; 80048; 80053; 81001; 82803; 83880; 84484; 85025; 86850; 86900; 86901; 86920; 86922; 94640; 99284; 99285-25; A9270-GY; J1940; J2060; J2270; J7030; J7613-GY; J7620-GY; P9016; U0002